=== PATIENT | female | born 1965 | race Caucasian/White ===

== ENCOUNTER 2018-10-08 01:24 | Inpatient (IN) | payer SELFPAY ==
[~2018-10-08] VITALS: Ht 165.1 cm; Wt 73.5 kg
[2018-10-08 02:38] LABS: BASO # 0.1 10^3/uL (0.0-0.2); BASO % 0.8 % (0.0-1.0); EOS % 0.3 % (0.0-3.0); HEMATOCRIT 37.5 % (36.0-47.0); HEMOGLOBIN 12.6 g/dl (12.0-15.5); LYMPH # 1.7 10^3/uL (1.5-4.5); LYMPH % 21.6 % (24.0-44.0); MEAN CORPUSCULAR HEMOGLOBIN 29.4 pg (27.0-33.0); MEAN CORPUSCULAR HGB CONC 33.6 g/dl (32.0-36.5); MEAN CORPUSCULAR VOLUME 87.4 fl (80.0-96.0); MONO # 0.8 10^3/uL (0.0-0.8); MONO % 9.9 % (0.0-5.0); NEUTROPHILS # 5.2 10^3/uL (1.8-7.7); NEUTROPHILS % 67.1 % (36.0-66.0); PLATELET COUNT, AUTOMATED 255 10^3/uL (150-450); RED BLOOD COUNT 4.29 10^6/uL (4.00-5.40); WHITE BLOOD COUNT 7.8 10^3/uL (4.0-10.0)
[2018-10-08 02:59] LABS: ALBUMIN 3.6 GM/DL (3.2-5.2); ALT/SGPT 23 U/L (12-78); BILIRUBIN,DIRECT 0.2 MG/DL (0.0-0.2); BILIRUBIN,TOTAL 0.7 MG/DL (0.2-1.0); BLOOD UREA NITROGEN 14 MG/DL (7-18); CALCIUM LEVEL 8.1 MG/DL (8.5-10.1); CARBON DIOXIDE LEVEL 25 MEQ/L (21-32); CHLORIDE LEVEL 111 MEQ/L (98-107); CREATININE FOR GFR 0.74 MG/DL (0.55-1.30); GLOMERULAR FILTRATION RATE > 60.0 (>51); GLUCOSE, FASTING 104 MG/DL (70-100); POTASSIUM SERUM 3.7 MEQ/L (3.5-5.1); SODIUM LEVEL 142 MEQ/L (136-145); TOTAL PROTEIN 6.1 GM/DL (6.4-8.2)
[2018-10-08] MEDS ORDERED: KETOROLAC 60 MG/2 ML VIAL (J1885) IM ONE (03:45)
--- NOTE | 2018-10-08 05:39 | HPEPDOC ---
[facility] Medical History & Physical Date of Admission Oct 08, 2018 History and Physical CHIEF COMPLAINT: transfer from [facility] for abnormal labs? and psychosis/altered mental status HISTORY OF PRESENT ILLNESS: Yeny Coleman is a 52 YO F with unknown past medical history who was found naked and nonverbal walking along I. She was saying thin gs that included "Anthony is " and leads found her to be fearful, wide-eyed, and paranoid. She was also agitated and restless. She demonstrated disorientation and confusion as well as difficulty concentrating. He is reportedly from [facility] and it is unknown how she found her way to [place]. She denies any recent drug use. The ED at [facility] was able to find the name of a hospital where she had been previously treated in [place] and found that she has Graves' disease and unknown psychiatric history for which she takes trazodone daily. She had an unremarkable CT head, but slightly elevated ammonia level at 41. Her CPK level was also found to be 638. [facility] gave the patient 1 mg of Ativan and Narcan, but it is unclear whether they gave her lactulose.. She was brought to [facility] for further medical management and psychiatry intervention. On exam, she is not answering any questions appropriately. PAST MEDICAL HISTORY: 1. Unknown psychiatric disorder for which she was hospitalized at [facility] and [facility] 2. Graves disease? PAST SURGICAL HISTORY: Unknown SOCIAL HISTORY: The patient lives in [place]. He has known about her family or social habits, as she is not answering any questions at this time. FAMILY HISTORY: Unknown ALLERGIES: Please see below. REVIEW OF SYSTEMS: Unable to obtain HOME MEDICATIONS: Please see below. PHYSICAL EXAMINATION: VITAL SIGNS: See below GENERAL APPEARANCE: Laying in bed sleeping, difficult to awaken, laughing inappropriately HEENT: Fair dentition, moist mucous membranes CARDIOVASCULAR: RRR, no rubs or gallops LUNGS: Clear to auscultation bilaterally ABDOMEN: Soft, nontender to palpation with present bowel sounds MUSCULOSKELETAL: Moves all extremities well EXTREMITIES: No clubbing, cyanosis or edema NEUROLOGICAL: Unable to assess PSYCHIATRIC: Unable to assess LABORATORY DATA: See below. IMAGING: None performed MICROBIOLOGY: Please see below. ASSESSMENT: This is a 52-year-old woman with unknown psychiatric history found wandering along the highway naked and is found to be very paranoid and fearful. She was found to have an elevated ammonia level and was transferred to [facility] for medical management at this time. PLAN: #Elevated ammonia level: It is unknown whether this patient has liver disease. Physical exam does not demonstrate enlarged liver. Her confusion may be due to hepatic encephalopathy or from her psychiatric disease -The patient may have received lactulose at outside hospital, but records are not clear about this. Her ammonia level at the outside hospital was 41 and was found to be 34 here. -Will continue to monitor -As the patient does appear dry on exam. She would benefit from 1 L fluid bolus of normal saline at this time #Encephalopathy versus psychosis: -The patient is not agitated or combative on exam, so will not order one to one sitter at this time as it does not appear to be indicated -The patient was reportedly on 50 mg of trazodone daily at bedtime, but we are unable to confirm this -Will need psychiatry referral in the morning DVT prophylaxis: Miriam Unable to obtain patient's CODE STATUS at this time Vital Signs Vital Signs Date Time Temp Pulse Resp B/P (MAP) Pulse Ox O2 Delivery O2 Flow Rate FiO2 10/08/18 04:00 93 16 97 Room Air 10/08/18 02:45 97.8 114/57 (76) Laboratory Data Labs 24H Laboratory Tests 2 10/08/18 02:21: Anion Gap 6L, Glomerular Filtration Rate > 60.0, Calcium Level 8.1L, Aspartate Amino Transf (AST/SGOT) 26, Alanine Aminotransferase (ALT/SGPT) 23, Alkaline Phosphatase 79, Total Bilirubin 0.7, Direct Bilirubin 0.2, Total Protein 6.1L, Albumin 3.6, Albumin/Globulin Ratio 1.44 10/08/18 02:22: Immature Granulocyte % (Auto) 0.3, White Blood Count 7.8, Red Blood Count 4.29, Hemoglobin 12.6, Hematocrit 37.5, Mean Corpuscular Volume 87.4, Mean Corpuscular Hemoglobin 29.4, Mean Corpuscular Hemoglobin Concent 33.6, Red Cell Distribution Width 12.9, Platelet Count 255, Neutrophils (%) (Auto) 67.1H, Lymphocytes (%) (Auto) 21.6L, Monocytes (%) (Auto) 9.9H, Eosinophils (%) (Auto) 0.3, Basophils (%) (Auto) 0.8, Neutrophils # (Auto) 5.2, Lymphocytes # (Auto) 1.7, Monocytes # (Auto) 0.8, Eosinophils # (Auto) 0.0, Basophils # (Auto) 0.1, Nucleated Red Blood Cells % (auto) 0.0, Lactic Acid Level 1.0, Ammonia 34H CBC/BMP Laboratory Tests 10/08/18 02:21 10/08/18 02:22 Red Blood Count 4.29, Mean Corpuscular Volume 87.4, Mean Corpuscular Hemoglobin 29.4, Mean Corpuscular Hemoglobin Concent 33.6, Red Cell Distribution Width 12.9, Neutrophils (%) (Auto) 67.1 H, Lymphocytes (%) (Auto) 21.6 L, Monocytes (%) (Auto) 9.9 H, Eosinophils (%) (Auto) 0.3, Basophils (%) (Auto) 0.8, Neutrophils # (Auto) 5.2, Lymphocytes # (Auto) 1.7, Monocytes # (Auto) 0.8, Eosinophils # (Auto) 0.0, Basophils # (Auto) 0.1 Home Medications Scheduled PRN Trazodone HCl (Trazodone HCl) 150 Mg Tablet, 150 MG PO QHS PRN for SLEEP LAST FILLED 09/23/18 Allergies Coded Allergies: Sulfa (Sulfonamide Antibiotics) (Verified Allergy, Unknown, 10/08/18) latex (Verified Allergy, Unknown, 10/08/18) GME ATTESTATION GME ATTESTATION My faculty preceptor for this patient encounter was physically present during the encounter and was fully available. All aspects of the patient interview, examination, medical decision making process, and medical care plan development were reviewed and approved by the faculty preceptor. The faculty preceptor is aware and concurs with the plan as stated in the body of this note and will attest to such by his/her cosignature. ATTENDING NOTE I have reviewed the residents note and have personally examined the patient. I agree with the Residents physical examination and assessment and plan. LEENA GOMEZ MD Oct 08, 2018 05:39 AINSLEY SANDHU MD Oct 08, 2018 19:37
[2018-10-08] MEDS ORDERED: NS 1,000 ML IV ONE (05:45)
[2018-10-08] MEDS ORDERED: LORazepam 2 MG/ML VIAL (J2060) IV STA (06:38)
[2018-10-08] MEDS ORDERED: LORazepam 2 MG/ML VIAL (J2060) IV PRN (06:45)
[2018-10-08] MEDS ORDERED: HALOPERIDOL 5 MG/ML VIAL (J1630) IV PRN (06:45)
[2018-10-08] MEDS: ENOXAPARIN 40 MG/0.4 ML SYRINGE (J1650) SC SCH (09:00)
[2018-10-08] MEDS: HALOPERIDOL 0.5 MG TAB PO SCH ×2 (09:00→21:00)
[2018-10-08] MEDS ORDERED: TRAZ150T90 PO (09:49)
[2018-10-08 13:58] LABS: FREE THYROXINE INDEX 3.9 % (1.3-4.8); T UPTAKE 38 % (30-39); THYROXINE (T4) 10.3 UG/DL (4.5-12.0)
--- NOTE | 2018-10-08 14:10 | MHCRPDOC ---
[facility] Consultation Consultation DATE OF CONSULTATION: 10/08/18 CONSULTATION REQUESTED BY: REASON FOR CONSULTATION: Psychosis RELEVANT HISTORY: Per medical admit note: "Pt is a 52 YO F with unknown past medical history and past psychiatric history who was found naked and nonverbal walking along [address]. She was saying things that included "Anthony is " and leads found her to be fearful, wide-eyed, and paranoid. She was also agitated and restless. She demonstrated disorientation and confusion as well as difficulty concentrating. She is reportedly from [facility] and it is unknown how she found her way to [place]. She denies any recent drug use. The ED at [facility] was able to find the name of a hospital where she had been previously treated in [place] and found that she has Graves' disease and unknown psychiatric history for which she takes trazodone daily. She had an unremarkable CT head, but slightly elevated ammonia level at 41. Her CPK level was also found to be 638. [facility] gave the patient 1 mg of Ativan and Narcan, but it is unclear whether they gave her lactulose. She was brought to [facility] for further medical management and psychiatry intervention. On exam, she is not answering any questions appropriately." Pt seen with sitter present. Sitter in place as pt has attempted to elope multiple times since admitted. Pt pacing room when seen and states she'd like to go. Asked pt to sit while we talked and did for a second then stood up with slightly defensive body language (arms across chest) and shortly after resumed pacing. States she's here due to being naked, "walking" on the side of the road due to unknown reason and denies she thinks there's anything bizarre about that behavior. States she was looking for her car but when asked if she knew where it was unable to answer. Asked her to tell me about herself and didn't give any answers. Asked about her psychiatric history and states she's been diagnosed with anxiety before and has taken trazodone. Asked further about any other diagnosis and states "schizophrenia but that was miss diagnosis" but won't give other diagnosis. Attempted to complete MMSE and pt only oriented to self and that she in a hospital, unable to answer day, month, or year. 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 Distended abdomen most likely due to li jose guadalupe disease due to chronic alcohol use. PAST PSYCHIATRIC HISTORY: states she's been diagnosed with anxiety and given trazodone. States missed diagnosis with schizophrenia. PAST MEDICAL HISTORY: Graves Dz per records from [facility]. Hospitalized at [facility] and [facility] previously. Ammonia level 41 on admission and questionable if suffering hepatic encephalopathy as associated with confusion and psychosis, VH FAMILY HISTORY: noncontributory PERSONAL AND SOCIAL HISTORY: [place] to [place] and unknown how in [facility] area rest of social history unknown SUBSTANCE ABUSE HISTORY: based on body habitus and elevated liver enzymes/ammonia most likely abused alcohol long period of time LEGAL HISTORY: unknown MENTAL STATUS EXAMINATION: Patient is a 52 year old female, who is dressed in hospital gown pacing room, uneaten tray of food. Sitter present to prevent pt from eloping Speech is limited to few word responses Language skills are limited Thought processes including: concrete with blocking Thought content: denies si/hi, focused on leaving to find her car Abstract reasoning, and computation: poor Description of associations: illogical or no response Description of abnormal or psychotic thoughts: appears paranoid and very confused Judgment: poor Insight: poor Orientation to self only Recent and remote memory: poor recent and remote Attention span and concentration: very limited Language: limited Fund of knowledge: limited by confusion Mood: anxious Affect: anxious, pacing, defensive DIAGNOSIS: 1. Delirium secondary GMD (hypatic encephalogaly vs. elevated thyroid profile) 2. R/O psychosis unspecified PLAN: 1. ordered thyroid panel for hx Grave's disease as thyroid storm associated with psychosis delirium. Ordered toxicology to rule out substance use. 2. Recommend liver be further worked up for chronic liver disease vs failure as ammonia level increases associated with confusion more likely seen in liver failure. 3. zyprexa zydis 5mg q6hr prn anxiety/Agitation. NO ATIVAN will make pt more delirious/agitated/confused. Risperdal 0.5mg bid. (zyprexa and risperdal metabolized in liver but risks out way benefits as pt attempting to elope and has very poor insight and judgment.) 4. Continue sitter. Vital Signs Vital Signs Date Time Temp Pulse Resp B/P (MAP) Pulse Ox O2 Delivery O2 Flow Rate FiO2 10/08/18 07:15 98.7 95 18 154/74 (100) 95 Room Air Laboratory Data 24H Labs Laboratory Tests 2 10/08/18 02:21: Anion Gap 6L, Glomerular Filtration Rate > 60.0, Calcium Level 8.1L, Aspartate Amino Transf (AST/SGOT) 26, Alanine Aminotransferase (ALT/SGPT) 23, Alkaline Phosphatase 79, Total Bilirubin 0.7, Direct Bilirubin 0.2, Total Protein 6.1L, Albumin 3.6, Albumin/Globulin Ratio 1.44 10/08/18 02:22: Immature Granulocyte % (Auto) 0.3, White Blood Count 7.8, Red Blood Count 4.29, Hemoglobin 12.6, Hematocrit 37.5, Mean Corpuscular Volume 87.4, Mean Corpuscular Hemoglobin 29.4, Mean Corpuscular Hemoglobin Concent 33.6, Red Cell Distribution Width 12.9, Platelet Count 255, Neutrophils (%) (Auto) 67.1H, Lymphocytes (%) (Auto) 21.6L, Monocytes (%) (Auto) 9.9H, Eosinophils (%) (Auto) 0.3, Basophils (%) (Auto) 0.8, Neutrophils # (Auto) 5.2, Lymphocytes # (Auto) 1.7, Monocytes # (Auto) 0.8, Eosinophils # (Auto) 0.0, Basophils # (Auto) 0.1, Nucleated Red Blood Cells % (auto) 0.0, Lactic Acid Level 1.0, Ammonia 34H Home Medications Current Medications Current Medications Enoxaparin Sodium (Lovenox) 40 mg DAILY SC ; Start 10/08/18 at 09:00 Haloperidol (Haldol) 0.5 mg BID PO ; Start 10/08/18 at 09:00 Haloperidol (Haldol) 2 mg Q6HP PRN IV AGITATION; Start 10/08/18 at 06:45 Home Med (Med Rec Complete!) ASDIRECTED XX ; Start 10/08/18 at 03:45; Stop 10/08/18 at 03:45; Status DC Home Med (Med Rec Complete!) ASDIRECTED XX ; Start 10/08/18 at 10:00; Stop 10/08/18 at 10:20; Status DC Lorazepam (Ativan) 2 mg Q6HP PRN IV AGITATION; Start 10/08/18 at 06:45 Lorazepam (Ativan) 2 mg STAT STAT IV Last administered on 10/08/18at 06:56; Start 10/08/18 at 06:38; Stop 10/08/18 at 06:42; Status DC Scheduled PRN Trazodone HCl (Trazodone HCl) 150 Mg Tablet, 150 MG PO QHS PRN for SLEEP, (Reported) LAST FILLED 09/23/18 Allergies Coded Allergies: Sulfa (Sulfonamide Antibiotics) (Verified Allergy, Unknown, 10/08/18) latex (Verified Allergy, Unknown, 10/08/18) JERED RAVI DO Oct 08, 2018 1:18 pm
[2018-10-08 14:36] VITALS: BP 162/76
--- NOTE | 2018-10-08 17:09 | IPNPDOC ---
Date Seen The patient was seen on 10/08/18. Progress Note SUBJECTIVE: Patient patient tells me she has no medical problems she requires no testing and that she would like to be leaving the hospital shortly going back to where she came from she's not able to elaborate any further about where she came from her how she will get their and on further questioning she instructs me to "leave it for now"'s OBJECTIVE PHYSICAL EXAMINATION: VITAL SIGNS: Please see below. GENERAL: Middle-age female Admitting independently around her room she has a flat affect with psychomotor retardation HEENT: Cranial nerves grossly intact CARDIOVASCULAR: S1-S2 regular. RESPIRATORY: Clear to auscultation bilaterally. ABDOMINAL: Obese bowel sounds present abdomen soft and nontender EXTREMITIES: No clubbing cyanosis or edema no evidence of stigmata of chronic l iver disease NEUROLOGICAL: No gross focal deficits LABORATORY DATA, IMAGING STUDIES, MICROBIOLOGY: Please see below. DVT prophylaxis ordered?: Lovenox ASSESSMENT AND PLAN: This is a 52-year-old female with changes in mentation. PROBLEMS: 1. Change in mentation: My suspicion is for underlying psychiatric condition and does not appear to be in delirium secondary to any acute medical illness. [place] [address] Patient reportedly has a history of previous psychiatric hospitalizations although we have limited records in our system. She did have an elevated ammonia level however without the proper clinical presentation of hepatic encephalopathy my suspicion for this is quite low. She has no stigmata of chronic liver disease she is up ambulating awake alert does not appear to be encephalopathic whatsoever I see no value in this isolated lab. I spoken to Dr. Funk of psychiatry will see the patient consultation. In the interim I'll ensure no other medical etiology could responsible for her presentation. She does not express any suicidal ideation to me at this time. Toxicology and CT had both negative at [facility]. 2. Graves' disease: Thyroid panel is unremarkable. DISPOSITION: Pending psych evaluation. VS, I&O, 24H, Fishbone Vital Signs/I&O Vital Signs Date Time Temp Pulse Resp B/P (MAP) Pulse Ox O2 Delivery O2 Flow Rate FiO2 10/08/18 14:36 97.4 95 14 162/76 (104) 94 10/08/18 07:15 Room Air Laboratory Data 24H LABS Laboratory Tests 2 10/08/18 02:21: Anion Gap 6L, Glomerular Filtration Rate > 60.0, Calcium Level 8.1L, Aspartate Amino Transf (AST/SGOT) 26, Alanine Aminotransferase (ALT/SGPT) 23, Alkaline Ph osphatase 79, Total Bilirubin 0.7, Direct Bilirubin 0.2, Total Protein 6.1L, Albumin 3.6, Albumin/Globulin Ratio 1.44, Thyroid Stimulating Hormone (TSH) 1.400, Free Thyroxine Index 3.9, Thyroxine (T4) 10.3, Triiodothyronine (T3) Uptake 38 10/08/18 02:22: Immature Granulocyte % (Auto) 0.3, White Blood Count 7.8, Red Blood Count 4.29, Hemoglobin 12.6, Hematocrit 37.5, Mean Corpuscular Volume 87.4, Mean Corpuscular Hemoglobin 29.4, Mean Corpuscular Hemoglobin Concent 33.6, Red Cell Distribution Width 12.9, Platelet Count 255, Neutrophils (%) (Auto) 67.1H, Lymphocytes (%) (Auto) 21.6L, Monocytes (%) (Auto) 9.9H, Eosinophils (%) (Auto) 0.3, Basophils (%) (Auto) 0.8, Neutrophils # (Auto) 5.2, Lymphocytes # (Auto) 1.7, Monocytes # (Auto) 0.8, Eosinophils # (Auto) 0.0, Basophils # (Auto) 0.1, Nucleated Red Blood Cells % (auto) 0.0, Lactic Acid Level 1.0, Ammonia 34H CBC/BMP Laboratory Tests 10/08/18 02:21 10/08/18 02:22 Red Blood Count 4.29, Mean Corpuscular Volume 87.4, Mean Corpuscular Hemoglobin 29.4, Mean Corpuscular Hemoglobin Concent 33.6, Red Cell Distribution Width 12.9, Neutrophils (%) (Auto) 67.1 H, Lymphocytes (%) (Auto) 21.6 L, Monocytes (%) (Auto) 9.9 H, Eosinophils (%) (Auto) 0.3, Basophils (%) (Auto) 0.8, Neutrophils # (Auto) 5.2, Lymphocytes # (Auto) 1.7, Monocytes # (Auto) 0.8, Eosinophils # (Auto) 0.0, Basophils # (Auto) 0.1 LYDIA PATTERSON MD Oct 08, 2018 17:09
[2018-10-08] MEDS: risperiDONE 1 MG TAB PO SCH (21:00)
[2018-10-08 22:00] VITALS: BP 157/81
[2018-10-09 06:00] VITALS: BP 136/79
[2018-10-09 06:23] LABS: BASO # 0.1 10^3/uL (0.0-0.2); BASO % 1.1 % (0.0-1.0); EOS % 0.6 % (0.0-3.0); HEMOGLOBIN 12.9 g/dl (12.0-15.5); LYMPH # 1.8 10^3/uL (1.5-4.5); LYMPH % 34.8 % (24.0-44.0); MEAN CORPUSCULAR HEMOGLOBIN 29.9 pg (27.0-33.0); MEAN CORPUSCULAR HGB CONC 33.9 g/dl (32.0-36.5); MONO # 0.5 10^3/uL (0.0-0.8); MONO % 9.1 % (0.0-5.0); NEUTROPHILS # 2.9 10^3/uL (1.8-7.7); NEUTROPHILS % 54.2 % (36.0-66.0); PLATELET COUNT, AUTOMATED 241 10^3/uL (150-450); RED BLOOD COUNT 4.32 10^6/uL (4.00-5.40); WHITE BLOOD COUNT 5.3 10^3/uL (4.0-10.0)
[2018-10-09 06:39] LABS: INR 1.04; PROTHROMBIN TIME 13.7 SECONDS (12.1-14.4)
[2018-10-09 06:42] LABS: ALBUMIN 3.9 GM/DL (3.2-5.2); ALT/SGPT 31 U/L (12-78); BILIRUBIN,TOTAL 0.9 MG/DL (0.2-1.0); BLOOD UREA NITROGEN 11 MG/DL (7-18); CALCIUM LEVEL 8.7 MG/DL (8.5-10.1); CARBON DIOXIDE LEVEL 24 MEQ/L (21-32); CHLORIDE LEVEL 108 MEQ/L (98-107); CREATININE FOR GFR 0.58 MG/DL (0.55-1.30); GLOMERULAR FILTRATION RATE > 60.0 (>51); GLUCOSE, FASTING 116 MG/DL (70-100); POTASSIUM SERUM 3.5 MEQ/L (3.5-5.1); SODIUM LEVEL 141 MEQ/L (136-145); TOTAL PROTEIN 6.5 GM/DL (6.4-8.2)
[2018-10-09] MEDS: HALOPERIDOL 0.5 MG TAB PO SCH ×2 (09:00→21:35)
[2018-10-09] MEDS: ENOXAPARIN 40 MG/0.4 ML SYRINGE (J1650) SC SCH (09:00)
[2018-10-09] MEDS: risperiDONE 1 MG TAB PO SCH (09:35)
[2018-10-09 14:00] VITALS: BP 141/99
--- NOTE | 2018-10-09 14:08 | IPNPDOC ---
Date Seen The patient was seen on 10/09/18. Progress Note SUBJECTIVE: patient is avoiding today, she converses with me last she admits to previous psychiatric hospitalizations she cannot tell me where she lives now we will contact information for anyone who can provide collateral information for her she cannot tell me and address for which she could be discharged for disposition to. When asked about suicidal ideation she denies and shakes her head no I did ask her if she was feeling depressed or down her thoughts of hurting herself she was tearful but shakes her head no. I asked if she had been told she had any psychiatric illness in the past she was presented to me that she's been told she has schizophrenia but doesn't elaborate any further. She tells me that she takes trazodone at home but cannot tell me the name of any doctors was prescribed to her or who she has been seen by previously. She tells me she is denying refusing all medications as she does not believe she needs the OBJECTIVE PHYSICAL EXAMINATION: VITAL SIGNS: Please see below. GENERAL: Middle-age female she is tearful sitting curled up on a chair in no acute distress she is less conversant today She wishes to forego physical exam today LABORATORY DATA, IMAGING STUDIES, MICROBIOLOGY: Please see below. DVT prophylaxis ordered?: Lovenox ASSESSMENT AND PLAN: This is a 52-year-old female with changes in mentation. PROBLEMS: 1. Change in mentation: My suspicion is for underlying psychiatric condition and does not appear to be in delirium secondary to any acute medical illness. A repeat ammonium level is negative. Patient reportedly has a history of previous psychiatric hospitalizations although we have limited records in our system. She did have an elevated ammonia level however without the proper clinical presentation of hepatic encephalopathy my suspicion for this is quite low. She has no stigmata of chronic liver disease she is up ambulating awake alert does not appear to be encephalopathic whatsoever I see no value in this isolated lab, her INR is also normal liver ultrasound is currently pending. I spoken to Dr. Funk of psychiatry will see the patient consultation. In the interim I'll ensure no other medical etiology could be responsible for her presentation. She does not express any suicidal ideation to me at this time. Toxicology and CT had both negative at [facility]. Should her workup return completely negative tomorrow I suspect that acute medical delirium has been more than sufficiently excluded 2. Graves' disease: Thyroid panel is unremarkable. DISPOSITION: Pending revisitation, PFS consult placed VS, I&O, 24H, Fishbone Vital Signs/I&O Vital Signs Date Time Temp Pulse Resp B/P (MAP) Pulse Ox O2 Delivery O2 Flow Rate FiO2 10/09/18 06:00 97.5 92 17 136/79 (98) 97 10/08/18 07:15 Room Air I&O- Last 24 Hours up to 6 AM 10/09/18 06:00 Intake Total 1000 ml Balance 1000 ml Laboratory Data 24H LABS Laboratory Tests 2 10/09/18 06:05: Immature Granulocyte % (Auto) 0.2, White Blood Count 5.3, Red Blood Count 4.32, Hemoglobin 12.9, Hematocrit 38.0, Mean Corpuscular Volume 88.0, Mean Corpuscular Hemoglobin 29.9, Mean Corpuscular Hemoglobin Concent 33.9, Red Cell Distribution Width 12.5, Platelet Count 241, Neutrophils (%) (Auto) 54.2, Lymphocytes (%) (Auto) 34.8, Monocytes (%) (Auto) 9.1H, Eosinophils (%) (Auto) 0.6, Basophils (%) (Auto) 1.1H, Neutrophils # (Auto) 2.9, Lymphocytes # (Auto) 1.8, Monocytes # (Auto) 0.5, Eosinophils # (Auto) 0.0, Basophils # (Auto) 0.1, Nucleated Red Blood Cells % (auto) 0.0, Prothrombin Time 13.7, Prothromb Time International Ratio 1.04, Anion Gap 9, Glomerular Filtration Rate > 60.0, Blood Urea Nitrogen 11, Creatinine 0.58, Sodium Level 141, Potassium Level 3.5, Chloride Level 108H, Carbon Dioxide Level 24, Calcium Level 8.7, Aspartate Amino Transf (AST/SGOT) 33, Alanine Aminotransferase (ALT/SGPT) 31, Alkaline Phosphatase 81, Total Bilirubin 0.9, Total Protein 6.5, Albumin 3.9, Ammonia 28, Albumin/Globulin Ratio 1.50 CBC/BMP Laboratory Tests 10/09/18 06:05 Red Blood Count 4.32, Mean Corpuscular Volume 88.0, Mean Corpuscular Hemoglobin 29.9, Mean Corpuscular Hemoglobin Concent 33.9, Red Cell Distribution Width 12.5, Neutrophils (%) (Auto) 54.2, Lymphocytes (%) (Auto) 34.8, Monocytes (%) (Auto) 9.1 H, Eosinophils (%) (Auto) 0.6, Basophils (%) (Auto) 1.1 H, Neutrophils # (Auto) 2.9, Lymphocytes # (Auto) 1.8, Monocytes # (Auto) 0.5, Eosinophils # (Auto) 0.0, Basophils # (Auto) 0.1, Calcium Level 8.7, Aspartate Amino Transf (AST/SGOT) 33, Alanine Aminotransferase (ALT/SGPT) 31, Alkaline Phosphatase 81, Total Bilirubin 0.9, Total Protein 6.5, Albumin 3.9 LYDIA PATTERSON MD Oct 09, 2018 14:08
--- NOTE | 2018-10-09 15:04 | MHIPNPDOC ---
[facility] Progress Note Progress Note DATE OF SERVICE: 10/09/18 HISTORY: Per medical admit note: "Pt is a 52 YO F with unknown past medical history and past psychiatric history who was found naked and [place]verbal [place] [address]. She was saying things that included "Anthony is " and leads found her to be fearful, wide-eyed, and paranoid. She was also agitated and restless. She demonstrated disorientation and confusion as well as difficulty concentrating. She is reportedly from [facility] and it is unknown how she found her way to [place]. She denies any recent drug use. The ED at [facility] was able to find the name of a hospital where she had been previously treated in [place] and found that she has Graves' disease and unknown psychiatric history for which she takes trazodone daily. She had an unremarkable CT head, but slightly elevated ammonia level at 41. Her CPK level was also found to be 638. [facility] gave the patient 1 mg of Ativan and Narcan, but it is unclear whether they gave her lactulose. She was brought to [facility] for further medical management and psychiatry intervention. On exam, she is not answering any questions appropriately." Pt seen with sitter present. Sitter in place as pt has attempted to elope mul tiple times since admitted. Pt pacing room when seen and states she'd like to go. Asked pt to sit while we talked and did for a second then stood up with slightly defensive body language (arms across chest) and shortly after resumed pacing. States she's here due to being naked, "walking" on the side of the road due to unknown reason and denies she thinks there's anything bizarre about that behavior. States she was looking for her car but when asked if she knew where it was unable to answer. Asked her to tell me about herself and didn't give any answers. Asked about her psychiatric history and states she's been diagnosed with anxiety before and has taken trazodone. Asked further about any other diagnosis and states "schizophrenia but that was miss diagnosis" but won't give other diagnosis. Attempted to complete MMSE and pt only oriented to self and that she in a hospital, unable to answer day, month, or year. 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 Distended abdomen most likely due to liver disease due to chronic alcohol use. VITAL SIGNS: See below. NEW TEST RESULTS: thyroid panel wnl, pending utox, ammonia 28. CURRENT MEDICATIONS: See below. MENTAL STATUS EXAMINATION: Patient is a 52 year old female, who is dressed in hospital gown pacing room, uneaten tray of food. Sitter present to prevent pt from eloping Speech is limited to few word responses Language skills are limited Thought processes including: concrete with blocking Thought content: denies si/hi, focused on leaving to find her car Abstract reasoning, and computation: poor Description of associations: illogical or no response Description of abnormal or psychotic thoughts: appears paranoid and very confused Judgment: poor Insight: poor Orientation to self only Recent and remote memory: poor recent and remote Attention span and concentration: very limited Language: limited Fund of knowledge: limited by confusion Mood: anxious Affect: anxious, pacing, defensive DIAGNOSES: psychosis unspecified ASSESSMENT:Pt seen with sitter present. Pt at first unwilling to answer questions but sat with pt and continued to ask simple questions. Able to comply with and answer MMSE of year, read October 09 on board, named straw and apple juice when asked. States some one told her to take all her clothes off [place] [address] but will not name who, possibly AH. Pt states she wants to go back to where to came from but won't or can't say where specifically that is or was. Pt very paranoid and appears to have prominent thought blocking. Denies SI/HI. Per nurse took risperdal when given and slept during the night. Pt ate breakfast but sitting with uneaten lunch in front on her and encourage to eat if she feels she can. Sitter in place as pt has attempted to elope multiple times since admitted. Pt no longer pacing, seating peacefully and did walk around her unit in am with staff with not attempts to elope. Pt appears to most likely be a chronic schizophrenic that lives a nomadic life b/c she prefers that as most that live this lifestyle prefer to be homeless and will intentionally leave homes due to worsening voices/paranoia and making individual uncomfortable. The are rarely if ever compliant on medications or with follow- up. Most not likely to harm self or others. Will continue to follow and see if can get her to further answer some questions about her origins and if we can help her return to area of living. MANAGEMENT PLAN: 1. zyprexa zydis 5mg q6hr prn anxiety/Agitation. NO ATIVAN will make pt more delirious/agitated/confused. Increase Risperdal 2mg bid. (zyprexa and risperdal metabolized in liver but risks out way benefits as pt attempting to elope and has very poor insight and judgment.) 2. Continue sitter. TIME SPENT: 30 minutes. Vital Signs Vital Signs Date Time Temp Pulse Resp B/P (MAP) Pulse Ox O2 Delivery O2 Flow Rate FiO2 10/09/18 06:00 97.5 92 17 136/79 (98) 97 10/08/18 07:15 Room Air Laboratory Data 24H Labs Laboratory Tests 2 10/09/18 06:05: Immature Granulocyte % (Auto) 0.2, White Blood Count 5.3, Red Blood Count 4.32, Hemoglobin 12.9, Hematocrit 38.0, Mean Corpuscular Volume 88.0, Mean Corpuscular Hemoglobin 29.9, Mean Corpuscular Hemoglobin Concent 33.9, Red Cell Distribution Width 12.5, Platelet Count 241, Neutrophils (%) (Auto) 54.2, Lymphocytes (%) (Auto) 34.8, Monocytes (%) (Auto) 9.1H, Eosinophils (%) (Auto) 0.6, Basophils (%) (Auto) 1.1H, Neutrophils # (Auto) 2.9, Lymphocytes # (Auto) 1.8, Monocytes # (Auto) 0.5, Eosinophils # (Auto) 0.0, Basophils # (Auto) 0.1, Nucleated Red Blood Cells % (auto) 0.0, Prothrombin Time 13.7, Prothromb Time International Ratio 1.04, Anion Gap 9, Glomerular Filtration Rate > 60.0, Blood Urea Nitrogen 11, Creatinine 0.58, Sodium Level 141, Potassium Level 3.5, Chloride Level 108H, Carbon Dioxide Level 24, Calcium Level 8.7, Aspartate Amino Transf (AST/SGOT) 33, Alanine Aminotransferase (ALT/SGPT) 31, Alkaline Phosphatase 81, Total Bilirubin 0.9, Total Protein 6.5, Albumin 3.9, Ammonia 28, Albumin/Globulin Ratio 1.50 CBC/BMP Laboratory Tests 10/09/18 06:05 Red Blood Count 4.32, Mean Corpuscular Volume 88.0, Mean Corpuscular Hemoglobin 29.9, Mean Corpuscular Hemoglobin Concent 33.9, Red Cell Distribution Width 12.5, Neutrophils (%) (Auto) 54.2, Lymphocytes (%) (Auto) 34.8, Monocytes (%) (Auto) 9.1 H, Eosinophils (%) (Auto) 0.6, Basophils (%) (Auto) 1.1 H, Ne utrophils # (Auto) 2.9, Lymphocytes # (Auto) 1.8, Monocytes # (Auto) 0.5, Eosinophils # (Auto) 0.0, Basophils # (Auto) 0.1, Calcium Level 8.7, Aspartate Amino Transf (AST/SGOT) 33, Alanine Aminotransferase (ALT/SGPT) 31, Alkaline Phosphatase 81, Total Bilirubin 0.9, Total Protein 6.5, Albumin 3.9 Current Medications Current Medications Enoxaparin Sodium (Lovenox) 40 mg DAILY SC ; Start 10/08/18 at 09:00 Haloperidol (Haldol) 0.5 mg BID PO ; Start 10/08/18 at 09:00 Haloperidol (Haldol) 2 mg Q6HP PRN IV AGITATION; Start 10/08/18 at 06:45 Home Med (Med Rec Complete!) ASDIRECTED XX ; Start 10/08/18 at 03:45; Stop 10/08/18 at 03:45; Status DC Home Med (Med Rec Complete!) ASDIRECTED XX ; Start 10/08/18 at 10:00; Stop 10/08/18 at 10:20; Status DC Lorazepam (Ativan) 2 mg Q6HP PRN IV AGITATION; Start 10/08/18 at 06:45; Status Cancel Lorazepam (Ativan) 2 mg STAT STAT IV Last administered on 10/08/18at 06:56; Start 10/08/18 at 06:38; Stop 10/08/18 at 06:42; Status DC Olanzapine (ZyPREXA ZYDIS) 5 mg Q4HP PRN PO ANXIETY/AGITATION; Start 06/16 at 14:15 Risperidone (RisperDAL) 1 mg BID PO Last administered on 10/09/18at 09:35; Start 10/08/18 at 21:00 Allergies Coded Allergies: Sulfa (Sulfonamide Antibiotics) (Verified Allergy, Unknown, 10/08/18) latex (Verified Allergy, Unknown, 10/08/18) JERED RAVI DO Oct 09, 2018 1:35 pm
[2018-10-09] MEDS: OLANZapine ORAL DISINTEGRATING TAB 5MG PO PRN (18:46)
[2018-10-09] MEDS: risperiDONE 2 MG TAB PO SCH (21:35)
[2018-10-09 22:00] VITALS: BP 173/72
[2018-10-10 06:00] VITALS: BP 138/76
--- NOTE | 2018-10-10 07:38 | REP ---
Right upper quadrant sonography: History: Abnormal liver enzymes. Acute encephalopathy. Elevated ammonia. Findings: Scanning through the right upper quadrant of the abdomen demonstrates normal sized thin-walled gallbladder without evidence of stone or polyp. Common bile duct is normal measuring 0.4 cm in greatest diameter. There is evidence of fatty infiltration of the liver. No focal liver lesion is seen. Limited views of the pancreas show no abnormality. Pancreas is largely obscured by abdominal gas however. Exam quality was also inhibited by patient's inability to fully cooperate. There is no evidence of ascites. There is cortical atrophy of the right kidney. Right kidney measures 11.5 x 4.7 x 5.4 cm. Impression: Evidence of fatty infiltration of the liver. Some cortical atrophy right kidney. No other abnormality. Electronically Signed by Jose Guadalupe Castro MD 10/09/2018 08:30 A
[2018-10-10] MEDS: HALOPERIDOL 0.5 MG TAB PO SCH ×2 (09:00→20:14)
[2018-10-10] MEDS ORDERED: risperiDONE LONG-ACTING 37.5 MG/2 ML INJ (J2794) IM SCH (09:00)
[2018-10-10] MEDS: ENOXAPARIN 40 MG/0.4 ML SYRINGE (J1650) SC SCH (09:00)
[2018-10-10 09:32] LABS: BASO # 0.1 10^3/uL (0.0-0.2); BASO % 1.2 % (0.0-1.0); EOS % 0.7 % (0.0-3.0); HEMATOCRIT 39.1 % (36.0-47.0); HEMOGLOBIN 13.2 g/dl (12.0-15.5); LYMPH # 1.2 10^3/uL (1.5-4.5); LYMPH % 26.9 % (24.0-44.0); MEAN CORPUSCULAR HEMOGLOBIN 29.1 pg (27.0-33.0); MEAN CORPUSCULAR HGB CONC 33.8 g/dl (32.0-36.5); MEAN CORPUSCULAR VOLUME 86.1 fl (80.0-96.0); MONO # 0.4 10^3/uL (0.0-0.8); MONO % 8.2 % (0.0-5.0); NEUTROPHILS # 2.7 10^3/uL (1.8-7.7); NEUTROPHILS % 62.3 % (36.0-66.0); PLATELET COUNT, AUTOMATED 245 10^3/uL (150-450); RED BLOOD COUNT 4.54 10^6/uL (4.00-5.40); WHITE BLOOD COUNT 4.3 10^3/uL (4.0-10.0)
[2018-10-10] MEDS: risperiDONE 2 MG TAB PO SCH ×2 (09:41→20:13)
[2018-10-10 09:45] LABS: ALBUMIN 3.6 GM/DL (3.2-5.2); ALT/SGPT 38 U/L (12-78); BILIRUBIN,TOTAL 0.7 MG/DL (0.2-1.0); BLOOD UREA NITROGEN 10 MG/DL (7-18); CALCIUM LEVEL 8.6 MG/DL (8.5-10.1); CARBON DIOXIDE LEVEL 27 MEQ/L (21-32); CHLORIDE LEVEL 107 MEQ/L (98-107); GLOMERULAR FILTRATION RATE > 60.0 (>51); GLUCOSE, FASTING 114 MG/DL (70-100); POTASSIUM SERUM 3.6 MEQ/L (3.5-5.1); SODIUM LEVEL 144 MEQ/L (136-145); TOTAL PROTEIN 6.3 GM/DL (6.4-8.2)
--- NOTE | 2018-10-10 11:04 | IPNPDOC ---
Date Seen The patient was seen on 10/10/18. Progress Note SUBJECTIVE: Patient is more conversant today, she tells me she feels fine she has no pain she has no medical problems. She tells me she takes no prescriptions other than trazodone. She tells me that she's been told she has schizophrenia but otherwise has no problems that she knows of. She cannot tell me a place where she lives for full number or any person in her life room unable to contact in order to obtain any kind of collateral information. She tells me she would like to leave has no place to go she denies suicidal ideation OBJECTIVE PHYSICAL EXAMINATION: VITAL SIGNS: Please see below. GENERAL: Middle-age female who is tearful at times sitting on a couch no acute distress HEENT: Cranial nerves grossly intact CARDIOVASCULAR: S1-S2 regular. RESPIRATORY: Clear to auscultation bilaterally. ABDOMINAL: Obese bowel sounds present abdomen soft and nontender EXTREMITIES: No clubbing cyanosis or edema no evidence of stigmata of chronic liver disease NEUROLOGICAL: No gross focal deficits LABORATORY DATA, IMAGING STUDIES, MICROBIOLOGY: Please see below. DVT prophylaxis ordered?: Lovenox ASSESSMENT AND PLAN: This is a 52-year-old female with schizophrenia PROBLEMS: 1. Schizophrenia: Psychiatry greatly appreciated she is agreeable to taking some antipsychotic medication at this time I do think that it would benefit her greatly. No evidence for any medical delirium or acute medical illness to suggest that this etiology for her unusual behavior. I suspect it is more likely related to her self admitted previous diagnosis of schizophrenia. Her ammonia level is normal as she has no stigmata of chronic liver disease no evidence of chronic liver disease. I see no reason to avoid hepatotoxic medications or to recheck any further ammonia levels. At this point, I believe she is medically stable for discharge however the primary problem remains a safe disposition plan for her. I'll recheck to psychiatry today to see if they feel she may warrant an inpatient mental health hospitalization for her psychosis. If if so and even if not she may require further placement options to be explored through a PFS. I suspect that as she takes her antipsychotic she may become more open to discussions and revealing about her history 2. Graves' disease: Thyroid panel is unremarkable. DISPOSITION: Pending psych evaluation and safe disposition arrangement. VS, I&O, 24H, Fishbone Vital Signs/I&O Vital Signs Date Time Temp Pulse Resp B/P (MAP) Pulse Ox O2 Delivery O2 Flow Rate FiO2 10/10/18 06:00 98.5 110 18 138/76 (96) 96 10/08/18 07:15 Room Air I&O- Last 24 Hours up to 6 AM 10/10/18 06:00 Intake Total 120 ml Output Total 0 ml Balance 120 ml Laboratory Data 24H LABS Laboratory Tests 2 10/10/18 09:06: Immature Granulocyte % (Auto) 0.7, White Blood Count 4.3, Red Blood Count 4.54, Hemoglobin 13.2, Hematocrit 39.1, Mean Corpuscular Volume 86.1, Mean Corpuscular Hemoglobin 29.1, Mean Corpuscular Hemoglobin Concent 33.8, Red Cell Distribution Width 12.6, Platelet Count 245, Neutrophils (%) (Auto) 62.3, Lymphocytes (%) (Auto) 26.9, Monocytes (%) (Auto) 8.2H, Eosinophils (%) (Auto) 0.7, Basophils (%) (Auto) 1.2H, Neutrophils # (Auto) 2.7, Lymphocytes # (Auto) 1.2L, Monocytes # (Auto) 0.4, Eosinophils # (Auto) 0.0, Basophils # (Auto) 0.1, Nucleated Red Blood Cells % (auto) 0.0, Anion Gap 10, Glomerular Filtration Rate > 60.0, Blood Urea Nitrogen 10, Creatinine 0.60, Sodium Level 144, Potassium Level 3.6, Chloride Level 107, Carbon Dioxide Level 27, Calcium Level 8.6, Aspartate Amino Transf (AST/SGOT) 37, Alanine Aminotransferase (ALT/SGPT) 38, Alkaline Phosphatase 77, Total Bilirubin 0.7, Total Protein 6.3L, Albumin 3.6, Albumin/Globulin Ratio 1.33 CBC/BMP Laboratory Tests 10/10/18 09:06 Red Blood Count 4.54, Mean Corpuscular Volume 86.1, Mean Corpuscular Hemoglobin 29.1, Mean Corpuscular Hemoglobin Concent 33.8, Red Cell Distribution Width 12.6, Neutrophils (%) (Auto) 62.3, Lymphocytes (%) (Auto) 26.9, Monocytes (%) (Auto) 8.2 H, Eosinophils (%) (Auto) 0.7, Basophils (%) (Auto) 1.2 H, Neutrophils # (Auto) 2.7, Lymphocytes # (Auto) 1.2 L, Monocytes # (Auto) 0.4, Eosinophils # (Auto) 0.0, Basophils # (Auto) 0.1, Calcium Level 8.6, Aspartate Amino Transf (AST/SGOT) 37, Alanine Aminotransferase (ALT/SGPT) 38, Alkaline Phosphatase 77, Total Bilirubin 0.7, Total Protein 6.3 L, Albumin 3.6 LYDIA PATTERSON MD Oct 10, 2018 11:04
--- NOTE | 2018-10-10 12:35 | MHIPNPDOC ---
[facility] Progress Note Progress Note DATE OF SERVICE: 10/10/18 HISTORY: Per medical admit note: "Pt is a 52 YO F with unknown past medical history and past psychiatric history who was found naked and nonverbal [place] [address]. She was saying things that included "Anthony is " and leads found her to be fearful, wide-eyed, and paranoid. She was also agitated and restless. She demonstrated disorientation and confusion as well as difficulty concentrating. She is reportedly from [facility] and it is unknown how she found her way to [place]. She denies any recent drug use. The ED at [facility] was able to find the name of a hospital where she had been previously treated in [place] and found that she has Graves' disease and unknown psychiatric history for which she takes trazodone daily. She had an unremarkable CT head, but slightly elevated ammonia level at 41. Her CPK level was also found to be 638. [facility] gave the patient 1 mg of Ativan and Narcan, but it is unclear whether they gave her lactulose. She was brought to [facility] for further medical management and psychiatry intervention. On exam, she is not answering any questions appropriately." Pt seen with sitter present. Sitter in place as pt has attempted to elope mul tiple times since admitted. Pt pacing room when seen and states she'd like to go. Asked pt to sit while we talked and did for a second then stood up with slightly defensive body language (arms across chest) and shortly after resumed pacing. States she's here due to being naked, "walking" on the side of the road due to unknown reason and denies she thinks there's anything bizarre about that behavior. States she was looking for her car but when asked if she knew where it was unable to answer. Asked her to tell me about herself and didn't give any answers. Asked about her psychiatric history and states she's been diagnosed with anxiety before and has taken trazodone. Asked further about any other diagnosis and states "schizophrenia but that was miss diagnosis" but won't give other diagnosis. Attempted to complete MMSE and pt only oriented to self and that she in a hospital, unable to answer day, month, or year. 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 Distended abdomen most likely due to liver disease due to chronic alcohol use. VITAL SIGNS: See below. NEW TEST RESULTS: thyroid panel wnl, pending utox, ammonia 28. CURRENT MEDICATIONS: See below. MENTAL STATUS EXAMINATION: Patient is a 52 year old female, who is dressed in hospital gown pacing room, uneaten tray of food. Sitter present to prevent pt from eloping Speech is limited to few word responses Language skills are limited Thought processes including: concrete with blocking Thought content: denies si/hi, focused on leaving to find her car Abstract reasoning, and computation: poor Description of associations: illogical or no response Description of abnormal or psychotic thoughts: appears paranoid and very confused Judgment: poor Insight: poor Orientation to self only Recent and remote memory: poor recent and remote Attention span and concentration: very limited Language: limited Fund of knowledge: limited by confusion Mood: anxious Affect: anxious, pacing, defensive DIAGNOSES: psychosis unspecified ASSESSMENT:Pt seen with sitter present at first resting then woke up. Per vicenta, pt remembering more with start and compliance on risperdal that she's tolerating well. Able to remember she's from [place] and went to an outpatient clinic where "Hai" is the typesetting supervisor. Still can't remember where her car is. States she's doing well and hopes to go home soon. Recommended pt take risperdal consta as she's tolerating and benefiting oral risperdal and will be able to speed up ability to d/c her back home once SW on med unit finds and contacts her outpatient clinic in [place]. Agrees to think about it prior to accepting to take it right away. States she's been on long acting antipsychotics in the past. Denies SI/HI. Pt no longer pacing, resting peacefully, and walking around her unit in am with staff with not attempts to elope. Pt appears to most likely be a chronic schizophrenic that lives a nomadic life b/c she prefers that as most that live this lifestyle prefer to be homeless and will intentionally leave homes due to worsening voices/paranoia and making individual uncomfortable. The are rarely if ever compliant on medications or with follow-up. Most not likely to harm self or others. Will continue to follow and see if can get her to further answer some questions about her origins and if we can help her return to area of living. MANAGEMENT PLAN: 1. zyprexa zydis 5mg q6hr prn anxiety/Agitation. NO ATIVAN will make pt more delirious/agitated/confused. Continue Risperdal 2mg bid. Risperdal Consta 37.5mg IM x1 (zyprexa and risperdal metabolized in liver but risks out way benefits as pt attempting to elope and has very poor insight and judgment.) 2. Continue sitter. 3. SW to contact after finding outpatient to determine safe d/c for pt as most likely ready to d/c after risperdal consta given and tolerated well. TIME SPENT: 30 minutes. Vital Signs Vital Signs Vital Signs Date Time Temp Pulse Resp B/P (MAP) Pulse Ox O2 Delivery O2 Flow Rate FiO2 10/10/18 06:00 98.5 110 18 138/76 (96) 96 10/08/18 07:15 Room Air Laboratory Data 24H Labs Laboratory Tests 2 10/10/18 09:06: Immature Granulocyte % (Auto) 0.7, White Blood Count 4.3, Red Blood Count 4.54, Hemoglobin 13.2, Hematocrit 39.1, Mean Corpuscular Volume 86.1, Mean Corpuscular Hemoglobin 29.1, Mean Corpuscular Hemoglobin Concent 33.8, Red Cell Distribution Width 12.6, Platelet Count 245, Neutrophils (%) (Auto) 62.3, Lymphocytes (%) (Auto) 26.9, Monocytes (%) (Auto) 8.2H, Eosinophils (%) (Auto) 0.7, Basophils (%) (Auto) 1.2H, Neutrophils # (Auto) 2.7, Lymphocytes # (Auto) 1.2L, Monocytes # (Auto) 0.4, Eosinophils # (Auto) 0.0, Basophils # (Auto) 0.1, Nucleated Red Blood Cells % (auto) 0.0, Anion Gap 10, Glomerular Filtration Rate > 60.0, Blood Urea Nitrogen 10, Creatinine 0.60, Sodium Level 144, Potassium Level 3.6, Chloride Level 107, Carbon Dioxide Level 27, Calcium Level 8.6, Aspartate Amino Transf (AST/SGOT) 37, Alanine Aminotransferase (ALT/SGPT) 38, Alkaline Phosphatase 77, Total Bilirubin 0.7, Total Protein 6.3L, Albumin 3.6, Albumin/Globulin Ratio 1.33 CBC/BMP Laboratory Tests 10/10/18 09:06 Red Blood Count 4.54, Mean Corpuscular Volume 86.1, Mean Corpuscular Hemoglobin 29.1, Mean Corpuscular Hemoglobin Concent 33.8, Red Cell Distribution Width 12.6, Neutrophils (%) (Auto) 62.3, Lymphocytes (%) (Auto) 26.9, Monocytes (%) (Auto) 8.2 H, Eosinophils (%) (Auto) 0.7, Basophils (%) (Auto) 1.2 H, Neutrophils # (Auto) 2.7, Lymphocytes # (Auto) 1.2 L, Monocytes # (Auto) 0.4, Eosinophils # (Auto) 0.0, Basophils # (Auto) 0.1, Calcium Level 8.6, Aspartate Amino Transf (AST/SGOT) 37, Alanine Aminotransferase (ALT/SGPT) 38, Alkaline Phosphatase 77, Total Bilirubin 0.7, Total Protein 6.3 L, Albumin 3.6 Current Medications Current Medications Enoxaparin Sodium (Lovenox) 40 mg DAILY SC ; Start 10/08/18 at 09:00 Haloperidol (Haldol) 0.5 mg BID PO ; Start 10/08/18 at 09:00 Haloperidol (Haldol) 2 mg Q6HP PRN IV AGITATION; Start 10/08/18 at 06:45 Home Med (Med Rec Complete!) ASDIRECTED XX ; Start 10/08/18 at 03:45; Stop 10/08/18 at 03:45; Status DC Home Med (Med Rec Complete!) ASDIRECTED XX ; Start 10/08/18 at 10:00; Stop 10/08/18 at 10:20; Status DC Lorazepam (Ativan) 2 mg Q6HP PRN IV AGITATION; Start 10/08/18 at 06:45; Status Cancel Lorazepam (Ativan) 2 mg STAT STAT IV Last administered on 10/08/18at 06:56; Start 10/08/18 at 06:38; Stop 10/08/18 at 06:42; Status DC Olanzapine (ZyPREXA ZYDIS) 5 mg Q4HP PRN PO ANXIETY/AGITATION Last administered on 10/09/18at 18:46; Start 10/08/18 at 14:15 Risperidone (RisperDAL) 1 mg BID PO Last administered on 10/09/18at 09:35; Start 10/08/18 at 21:00; Stop 10/09/18 at 15:04; Status DC Risperidone (RisperDAL) 2 mg BID PO Last administered on 10/10/18at 09:41; Start 10/09/18 at 21:00 Allergies Coded Allergies: Sulfa (Sulfonamide Antibiotics) (Verified Allergy, Unknown, 10/08/18) latex (Verified Allergy, Unknown, 10/08/18) JERED RAVI DO Oct 10, 2018 12:35 pm
[2018-10-10 14:00] VITALS: BP 130/80
[2018-10-10] MEDS: OLANZapine ORAL DISINTEGRATING TAB 5MG PO PRN (18:25)
[2018-10-10 22:00] VITALS: BP 147/81
[2018-10-11 06:00] VITALS: BP 126/72
[2018-10-11 06:23] LABS: BASO % 0.9 % (0.0-1.0); EOS # 0.1 10^3/uL (0.0-0.50); EOS % 1.5 % (0.0-3.0); HEMATOCRIT 37.7 % (36.0-47.0); HEMOGLOBIN 12.7 g/dl (12.0-15.5); LYMPH # 1.6 10^3/uL (1.5-4.5); LYMPH % 33.5 % (24.0-44.0); MEAN CORPUSCULAR HEMOGLOBIN 29.1 pg (27.0-33.0); MEAN CORPUSCULAR HGB CONC 33.7 g/dl (32.0-36.5); MEAN CORPUSCULAR VOLUME 86.3 fl (80.0-96.0); MONO # 0.4 10^3/uL (0.0-0.8); MONO % 7.9 % (0.0-5.0); NEUTROPHILS # 2.6 10^3/uL (1.8-7.7); NEUTROPHILS % 56.2 % (36.0-66.0); PLATELET COUNT, AUTOMATED 237 10^3/uL (150-450); RED BLOOD COUNT 4.37 10^6/uL (4.00-5.40); WHITE BLOOD COUNT 4.7 10^3/uL (4.0-10.0)
[2018-10-11 06:43] LABS: ALBUMIN 3.4 GM/DL (3.2-5.2); ALT/SGPT 34 U/L (12-78); BILIRUBIN,TOTAL 0.6 MG/DL (0.2-1.0); BLOOD UREA NITROGEN 8 MG/DL (7-18); CALCIUM LEVEL 8.5 MG/DL (8.5-10.1); CARBON DIOXIDE LEVEL 29 MEQ/L (21-32); CHLORIDE LEVEL 108 MEQ/L (98-107); CREATININE FOR GFR 0.62 MG/DL (0.55-1.30); GLOMERULAR FILTRATION RATE > 60.0 (>51); GLUCOSE, FASTING 121 MG/DL (70-100); POTASSIUM SERUM 3.5 MEQ/L (3.5-5.1); SODIUM LEVEL 142 MEQ/L (136-145); TOTAL PROTEIN 6.2 GM/DL (6.4-8.2)
[2018-10-11] MEDS: risperiDONE 2 MG TAB PO SCH (09:00)
[2018-10-11] MEDS: ENOXAPARIN 40 MG/0.4 ML SYRINGE (J1650) SC SCH (09:00)
[2018-10-11] MEDS: HALOPERIDOL 0.5 MG TAB PO SCH (09:00)
--- NOTE | 2018-10-11 13:11 | MHIPNPDOC ---
[facility] Progress Note Progress Note DATE OF SERVICE: 10/11/18 HISTORY: Per medical admit note: "Pt is a 52 YO F with unknown past medical history and past psychiatric history who was found naked and nonverbal walking [place] [address]. She was saying things that included "Anthony is " and leads found her to be fearful, wide-eyed, and paranoid. She was also agitated and restless. She demonstrated disorientation and confusion as well as difficulty concentrating. She is reportedly from [facility] and it is unknown how she found her way to [place]. She denies any recent drug use. The ED at [facility] was able to find the name of a hospital where she had been previously treated in [place] and found that she has Graves' disease and unknown psychiatric history for which she takes trazodone daily. She had an unremarkable CT head, but slightly elevated ammonia level at 41. Her CPK level was also found to be 638. [facility] gave the patient 1 mg of Ativan and Narcan, but it is unclear whether they gave her lactulose. She was brought to [facility] for further medical management and psychiatry intervention. On exam, she is not answering any questions appropriately." Pt seen with sitter present. Sitter in place as pt has attempted to elope mul tiple times since admitted. Pt pacing room when seen and states she'd like to go. Asked pt to sit while we talked and did for a second then stood up with slightly defensive body language (arms across chest) and shortly after resumed pacing. States she's here due to being naked, "walking" on the side of the road due to unknown reason and denies she thinks there's anything bizarre about that behavior. States she was looking for her car but when asked if she knew where it was unable to answer. Asked her to tell me about herself and didn't give any answers. Asked about her psychiatric history and states she's been diagnosed with anxiety before and has taken trazodone. Asked further about any other diagnosis and states "schizophrenia but that was miss diagnosis" but won't give other diagnosis. Attempted to complete MMSE and pt only oriented to self and that she in a hospital, unable to answer day, month, or year. 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 Distended abdomen most likely due to liver disease due to chronic alcohol use. VITAL SIGNS: See below. NEW TEST RESULTS: thyroid panel wnl, pending utox, ammonia 28. CURRENT MEDICATIONS: See below. MENTAL STATUS EXAMINATION: Patient is a 52 year old female, who is dressed in hospital gown pacing room, uneaten tray of food. Sitter present to prevent pt from eloping Speech is limited to few word responses Language skills are limited Thought processes including: concrete with blocking, internally preoccupied Thought content: denies si/hi, focused on leaving to find her car Abstract reasoning, and computation: poor Description of associations: illogical or no response Description of abnormal or psychotic thoughts: appears paranoid and very confused, internally preoccupied Judgment: poor Insight: poor Orientation to self only Recent and remote memory: poor recent and remote Attention span and concentration: very limited Language: limited Fund of knowledge: limited by confusion Mood: anxious Affect: anxious, pacing, defensive DIAGNOSES: psychosis unspecified ASSESSMENT:Pt seen with sitter present at first resting then woke up. Continues to appear preoccupied internally with thought blocking, poor memory, improving paranoia. Denies hallucinations. Able to remember "[facility] out patient clinic," and continues to state she's from [place] and lives in an [facility] when "Hai" is the drying room supervisor. Still can't remember where her car is. States she's doing well and hopes to go home soon. Took risperdal consta but refused oral risperdal this am. Spoke with SW who is attempting to reach pts family with no luck. Can continue search and d/c planning on [facility] with transfer to unit andd more routine psychiatric care. Denies SI/HI. Pt no longer pacing, resting peacefully, and walking around her unit in am with staff. MANAGEMENT PLAN: 1. Continue Risperdal 3mg bid. 2. transfer [facility]. 3. SW to contact after finding outpatient to determine safe d/c for pt TIME SPENT: 30 minutes. Vital Signs Vital Signs Date Time Temp Pulse Resp B/P (MAP) Pulse Ox O2 Delivery O2 Flow Rate FiO2 10/11/18 06:00 98.0 95 18 126/72 (90) 94 10/08/18 07:15 Room Air Laboratory Data 24H Labs Laboratory Tests 2 10/11/18 06:05: Immature Granulocyte % (Auto) 0.0, White Blood Count 4.7, Red Blood Count 4.37, Hemoglobin 12.7, Hematocrit 37.7, Mean Corpuscular Volume 86.3, Mean Corpuscular Hemoglobin 29.1, Mean Corpuscular Hemoglobin Concent 33.7, Red Cell Distribution Width 12.6, Platelet Count 237, Neutrophils (%) (Auto) 56.2, Lymphocytes (%) (Auto) 33.5, Monocytes (%) (Auto) 7.9H, Eosinophils (%) (Auto) 1.5, Basophils (%) (Auto) 0.9, Neutrophils # (Auto) 2.6, Lymphocytes # (Auto) 1.6, Monocytes # (Auto) 0.4, Eosinophils # (Auto) 0.1, Basophils # (Auto) 0.0, Nucleated Red Blood Cells % (auto) 0.0, Anion Gap 5L, Glomerular Filtration Rate > 60.0, Blood Urea Nitrogen 8, Creatinine 0.62, Sodium Level 142, Potassium Level 3.5, Chloride Level 108H, Carbon Dioxide Level 29, Calcium Level 8.5, Aspartate Amino Transf (AST/SGOT) 23, Alanine Aminotransferase (ALT/SGPT) 34, Alkaline Phosphatase 69, Total Bilirubin 0.6, Total Protein 6.2L, Albumin 3.4, Albumin/Globulin Ratio 1.21 CBC/BMP Laboratory Tests 10/11/18 06:05 Red Blood Count 4.37, Mean Corpuscular Volume 86.3, Mean Corpuscular Hemoglobin 29.1, Mean Corpuscular Hemoglobin Concent 33.7, Red Cell Distribution Width 12.6, Neutrophils (%) (Auto) 56.2, Lymphocytes (%) (Auto) 33.5, Monocytes (%) (Auto) 7.9 H, Eosinophils (%) (Auto) 1.5, Basophils (%) (Auto) 0.9, Neutrophils # (Auto) 2.6, Lymphocytes # (Auto) 1.6, Monocytes # (Auto) 0.4, Eosinophils # (Auto) 0.1, Basophils # (Auto) 0.0, Calcium Level 8.5, Aspartate Amino Transf (AST/SGOT) 23, Alanine Aminotransferase (ALT/SGPT) 34, Alkaline Phosphatase 69, Total Bilirubin 0.6, Total Protein 6.2 L, Albumin 3.4 Current Medications Current Medications Enoxaparin Sodium (Lovenox) 40 mg DAILY SC ; Start 10/08/18 at 09:00 Haloperidol (Haldol) 0.5 mg BID PO ; Start 10/08/18 at 09:00 Haloperidol (Haldol) 2 mg Q6HP PRN IV AGITATION; Start 10/08/18 at 06:45 Home Med (Med Rec Complete!) ASDIRECTED XX ; Start 10/08/18 at 03:45; Stop 10/08/18 at 03:45; Status DC Home Med (Med Rec Complete!) ASDIRECTED XX ; Start 10/08/18 at 10:00; Stop 09/27 08/17 at 10:20; Status DC Lorazepam (Ativan) 2 mg Q6HP PRN IV AGITATION; Start 10/08/18 at 06:45; Status Cancel Lorazepam (Ativan) 2 mg STAT STAT IV Last administered on 10/08/18at 06:56; Start 10/08/18 at 06:38; Stop 10/08/18 at 06:42; Status DC Olanzapine (ZyPREXA ZYDIS) 5 mg Q4HP PRN PO ANXIETY/AGITATION Last administered on 10/10/18at 18:25; Start 10/08/18 at 14:15 Risperidone (RisperDAL Consta) 37.5 mg Q14D@09 IM Last administered on 10/10/18at 15:25; Start 10/10/18 at 09:00 Risperidone (RisperDAL) 1 mg BID PO Last administered on 10/09/18at 09:35; Start 10/08/18 at 21:00; Stop 10/09/18 at 15:04; Status DC Risperidone (RisperDAL) 2 mg BID PO Last administered on 10/10/18at 20:13; Start 10/09/18 at 21:00 Allergies Coded Allergies: Sulfa (Sulfonamide Antibiotics) (Verified Allergy, Unknown, 10/08/18) latex (Verified Allergy, Unknown, 10/08/18) JERED RAVI DO Oct 11, 2018 1:11 pm
[2018-10-11 14:00] VITALS: BP 130/67
[2018-10-11] MEDS ORDERED: RISP2TAB32 PO (14:31)
[2018-10-11] MEDS ORDERED: OLAN5ZYD PO (14:31)
--- NOTE | 2018-10-11 14:38 | DS.PDOC ---
Discharge Summary General Date of Admission Oct 08, 2018 at 05:00 Date of Discharge 10/11/18 Attending Physician: KALEB BALTAZAR MD Specialist/Consultants Involve: JERED RAVI DO Discharge Summary PROCEDURES PERFORMED DURING STAY: None ADMITTING DIAGNOSES: 1. Psychosis DISCHARGE DIAGNOSES: 1. Psychosis COMPLICATIONS/CHIEF COMPLAINT: Encephalopathy Acute. HISTORY OF PRESENT ILLNESS: "Yeny Coleman is a 52 YO F with unknown past medical history who was found naked and nonverbal walking along I. She was saying things that included "Anthony is " and leads found her to be fearful, wide-eyed, and paranoid. She was also agitated and restless. She demonstrated disorientation and confusion as well as difficulty concentrating. He is reportedly from [facility] and it is unknown how she found her way to [place]. She denies any recent drug use. The ED at [facility] was able to find the name of a hospital where she had been previously treated in [place] and found that she has Graves' disease and unknown psychiatric history for which she takes trazodone daily. She had an unremarkable CT head, but slightly elevated ammonia level at 41. Her CPK level was also found to be 638. [facility] gave the patient 1 mg of Ativan and Na rcan, but it is unclear whether they gave her lactulose.. She was brought to [facility] for further medical management and psychiatry intervention. On exam, she is not answering any questions appropriately." HOSPITAL COURSE: Patient's a 52-year-old female with known known past medical history was brought in after found nonverbal walking naked along [address]. She has had very limited verbal communication to course of admission and offered little insight. Patient was evaluated by psychiatry team and started on medications with slight improvement. Patient is still reserve and does not answer many questions. However, she is medically stable for discharge from medical point of view but appears unsafe psychiatrically. Patient is to discharge to inpatient mental health unit for continuing evaluation and treatment until she is safe for discharge with appropriate placement. DISCHARGE MEDICATIONS: Please see below. ALLERGIES: Please see below. PHYSICAL EXAMINATION ON DISCHARGE: VITAL SIGNS: Please see below. General: No acute distress, Alert Eyes: Normal sclera, EOMI, EMILY HENT: Atraumatic, neck supple, moist mucous membranes Cardiovascular: Normal rate, normal rhythm. No murmurs appreciated. Pulmonary: Clear to auscultation b/l, no wheezing GI: Soft, nontender, nondistended Skin: Warm and dry Neuro: CN grossly intact. No focal deficits. Unable to fully assess. Psych: Answer few questions. Staring gaze with responses to only some questions. Denies suicidal ideation. LABORATORY DATA: Please see below. IMAGING: Liver US- Impression: Evidence of fatty infiltration of the liver. Some cortical atrophy right kidney. No other abnormality. ACTIVITY: [As tolerated]. DIET: Regular diet DISCHARGE PLAN: Transfer to inpatient mental health unit for further evaluation and treatment. DISPOSITION: . DISCHARGE INSTRUCTIONS: 1. None ITEMS TO FOLLOWUP ON ON OUTPATIENT: 1. None DISCHARGE CONDITION: [Stable]. TIME SPENT ON DISCHARGE: Greater than 30 minutes. Vital Signs/I&Os Vital Signs Date Time Temp Pulse Resp B/P (MAP) Pulse Ox O2 Delivery O2 Flow Rate FiO2 10/11/18 06:00 98.0 95 18 126/72 (90) 94 10/08/18 07:15 Room Air I&O- Last 24 Hours up to 6 AM 10/11/18 06:00 Intake Total 550 ml Output Total 0 ml Balance 550 ml Laboratory Data Labs 24H Laboratory Tests 2 10/11/18 06:05: Immature Granulocyte % (Auto) 0.0, White Blood Count 4.7, Red Blood Count 4.37, Hemoglobin 12.7, Hematocrit 37.7, Mean Corpuscular Volume 86.3, Mean Corpuscular Hemoglobin 29.1, Mean Corpuscular Hemoglobin Concent 33.7, Red Cell Distribution Width 12.6, Platelet Count 237, Neutrophils (%) (Auto) 56.2, Lymphocytes (%) (Auto) 33.5, Monocytes (%) (Auto) 7.9H, Eosinophils (%) (Auto) 1.5, Basophils (%) (Auto) 0.9, Neutrophils # (Auto) 2.6, Lymphocytes # (Auto) 1.6, Monocytes # (Auto) 0.4, Eosinophils # (Auto) 0.1, Basophils # (Auto) 0.0, Nucleated Red Blood Cells % (auto) 0.0, Anion Gap 5L, Glomerular Filtration Rate > 60.0, Blood Urea Nitrogen 8, Creatinine 0.62, Sodium Level 142, Potassium Level 3.5, Chloride Level 108H, Carbon Dioxide Level 29, Calcium Level 8.5, Aspartate Amino Transf (AST/SGOT) 23, Alanine Aminotransferase (ALT/SGPT) 34, Alkaline Phosphatase 69, Total Bilirubin 0.6, Total Protein 6.2L, Albumin 3.4, Albumin/Globulin Ratio 1.21 CBC/BMP Laboratory Tests 10/11/18 06:05 Red Blood Count 4.37, Mean Corpuscular Volume 86.3, Mean Corpuscular Hemoglobin 29.1, Mean Corpuscular Hemoglobin Concent 33.7, Red Cell Distribution Width 12.6, Neutrophils (%) (Auto) 56.2, Lymphocytes (%) (Auto) 33.5, Monocytes (%) (Auto) 7.9 H, Eosinophils (%) (Auto) 1.5, Basophils (%) (Auto) 0.9, Neutrophils # (Auto) 2.6, Lymphocytes # (Auto) 1.6, Monocytes # (Auto) 0.4, Eosinophils # (Auto) 0.1, Basophils # (Auto) 0.0, Calcium Level 8.5, Aspartate Amino Transf (A ST/SGOT) 23, Alanine Aminotransferase (ALT/SGPT) 34, Alkaline Phosphatase 69, Total Bilirubin 0.6, Total Protein 6.2 L, Albumin 3.4 Discharge Medications Scheduled Risperidone (Risperdal) 2 Mg Tablet, 2 MG PO BID Scheduled PRN Olanzapine (Olanzapine Odt) 5 Mg Tab.rapdis, 5 MG PO Q4HP PRN for ANXIETY/AGITATION Trazodone HCl (Trazodone HCl) 150 Mg Tablet, 150 MG PO QHS PRN for SLEEP, (Repor haja) LAST FILLED 09/23/18 Allergies Coded Allergies: Sulfa (Sulfonamide Antibiotics) (Verified Allergy, Unknown, 10/08/18) latex (Verified Allergy, Unknown, 10/08/18) KALEB BALTAZAR MD Oct 11, 2018 14:38
== END 2018-10-11 15:25 | DRG 52 ==
LOC: M ED 01:24 → M ED INP 05:00 → M MS5PR 08:27
PROVIDERS: ADMIT Internal Medicine Nephrology; ATTEND Student in an Organized Health Care Education/Training Program
DX: G93.40 Encephalopathy, unspecified (principal); E05.90 Thyrotoxicosis, unspecified without thyrotoxic crisis or storm; Z88.2 Allergy status to sulfonamides; Z91.040 Latex allergy status; F10.10 Alcohol abuse, uncomplicated; F41.9 Anxiety disorder, unspecified; F20.9 Schizophrenia, unspecified

== ENCOUNTER 2018-10-11 14:57 | Inpatient (IN) | payer SELFPAY ==
[~2018-10-11] VITALS: Ht 160 cm; Wt 68.9 kg
[~2018-10-11 14:57] MED LIST: OLAN5ZYD PO; RISP2TAB32 PO; TRAZ150T90 PO
[2018-10-11] MEDS ORDERED: ACETAMINOPHEN TAB 650MG DOSE (2X325MG) PO PRN (15:15)
[2018-10-11] MEDS ORDERED: traZODone 50 MG TAB PO PRN (15:15)
[2018-10-11] MEDS ORDERED: MOM 30ML SUSPENSION UDC PO PRN (15:15)
[2018-10-11] MEDS ORDERED: MAALOX 30 ML SUSP *UDC PO PRN (15:15)
[2018-10-11] MEDS: risperiDONE 3 MG TAB PO SCH (21:03)
--- NOTE | 2018-10-11 21:33 | HPE ---
DATE OF ADMISSION: 10/11/2018 HISTORY: Ms. Coleman was examined on the inpatient mental health unit in the presence of one of the nurses. Per her admission history and physical, she was just discharged after being hospitalized on the hospitalist service for three days for unknown psychiatric disorder. During that hospitalization, it was determined that she had a past history of Grave's disease and normal thyroid functions. She had one minimally elevated ammonia that was not still elevated when repeated the next day and had a liver ultrasound that showed fatty liver, but no cirrhosis. CURRENT MEDICATIONS: - Risperdal 3 mg twice a day - trazodone 50 mg at bedtime (q.h.s.) - Tylenol - magnesium oxide - Mylanta ALLERGIES: SULFA SOCIAL HISTORY: Denies smoking or alcohol. PHYSICAL EXAMINATION: VITAL SIGNS: Per flow sheet, 130/70. He is alert and conversant. She is guarded, but does answer questions. HEENT: Unremarkable. Thyroid nonpalpable. Lungs: Clear. Heart: Without murmur. Abdomen: Soft, nontender. No masses. Liver spleen not enlarged. She has no asterixis. Normal coordination. Normal [id number] testing. IMPRESSION: 1. Past history of hypothyroidism, seems to have gone in remission. Thyroid functions are normal off any medication. 2. Elevated ammonia. This was not confirmed on repeat testing. There is no cirrhosis on the ultrasound. There was no other lab abnormalities such as pancytopenia that would suggest the presence of cirrhosis. Some psychiatric medications can raise ammonia level. Most commonly is valproic acid, but it does not look like she is on that, although based on the lack of any medical information prior to her hospitalization, it is conceivable that she was taking this as an outpatient. Again, this is purely conjecture. The patient is medically stable. Call if any medical issues arise.
[2018-10-12 06:54] VITALS: BP 128/74
[2018-10-12] MEDS: risperiDONE 3 MG TAB PO SCH (09:00)
--- NOTE | 2018-10-12 10:42 | MHHPEPDOC ---
General Date Of Admission: Oct 11, 2018 Legal Status: 9.37 Chief Complaint "psychosis". History of Present Illness HISTORY OF THE PRESENT ILLNESS: Patient is a 52 -year-old , female, who was seen on consult from medicine prior admission and per consult note: Per medical admit note: "Pt is a 52 YO F with unknown past medical history and past psychiatric history who was found naked and nonverbal walking along [address]. She was saying things that included "Anthony is " and leads found her to be fearful, wide-eyed, and paranoid. She was also agitated and restless. She demonstrated disorientation and confusion as well as difficulty concentrating. She is reportedly from [facility] and it is unknown how she found her way to [place]. She denies any recent drug use. The ED at [facility] was able to find the name of a hospital where she had been previously treated in [place] and found that she has Graves' disease and unknown psychiatric history for which she takes trazodone daily. She had an unremarkable CT head, but slightly elevated ammonia level at 41. Her CPK level was also found to be 638. [facility] gave the patient 1 mg of Ativan and Narcan, but it is unclear whether they gave her lactulose. She was brought to [facility] for further medical management and psychiatry intervention. On exam, she is not answering any questions appropriately." Per psych initial consult note: "Pt seen with sitter present. Sitter in place as pt has attempted to elope multiple times since admitted. Pt pacing room when seen and states she'd like to go. Asked pt to sit while we talked and did for a second then stood up with slightly defensive body language (arms across chest) and shortly after resumed pacing. States she's here due to being naked, "walking" on the side of the road due to unknown reason and denies she thinks there's anything bizarre about that behavior. States she was looking for her car but when asked if she knew where it was unable to answer. Asked her to tell me about herself and didn't give any answers. Asked about her psychiatric history and states she's been diagnosed with anxiety before and has taken trazodone. Asked further about any other diagnosis and states "schizophrenia but that was miss diagnosis" but won't give other diagnosis. Attempted to complete MMSE and pt only oriented to self and that she in a hospital, unable to answer day, month, or year. Asked pt to name objects in room and unable to name TV and will only state "I know what it is."" Per follow-up consult note 10/11/18: "Pt seen with sitter present at first resting then woke up. Continues to appear preoccupied internally with thought blocking, poor memory, improving paranoia. Denies hallucinations. Able to remember "[facility]," and continues to state she's from [place] and lives in an [facility] when "Hai" is the supervisor testing. Still can't remember where her car is. States she's doing well and hopes to go home soon. Took risperdal consta but refused oral risperdal this am. Spoke with PAUL who is attempting to reach pts family with no luck. Can continue search and d/c planning on [facility] with transfer to unit andd more routine psychiatric care. Denies SI/HI. Pt no longer pacing, resting peacefully, and walking around her unit in am with staff." Psychiatric Review of Systems Depression (2 or more weeks): denies Brooklynn (4 or more days of): denies Psychosis: auditory hallucination, delusions, paranoia, disorganization, other (internal preoccupation, thought blocking, poor remote memory) PTSD: denies Anxiety: situational anxiety, stressor related anxiety Past Psychiatric History Previous Psychiatric Diagnosis: Schizophrenia Previous Psychiatric Admissions: unknown Suicide Attempts: unknown Psychiatric Follow-up: [facility] in [place] Psychiatric medications: states she's taken trazodone, haldol, and AOD in past Past Medical History Medical Problems none known Head Injury: No Seizures: No Hospitalizations: No Surgeries: No Family Medical/Psychiatric HX Medical Problems noncontributory unable to assess due to thought blocking and poor memory Psychiatric Disorders: No Addiction: No Suicide Attemps/Completions: No Addiction History denies Social History Unable to assess Childhood: unknown Abuse/Trauma:denies Current Living Situation: states lives in [facility] where Hai is the supervisor testing in [place] Education: unknown Employment: disability? Social Support: unknown Legal: unknown Marital: presumed single Mental Status Examination General Appearance: disheveled, appears stated age, hospital scubs/clothing Build: overweight Demeanor: withdrawn, preoccupied, guarded Eye Contact: fair Activity: slowed, anxious Behavior: cooperative, withdrawn Speech: low in volume, non-spontaneous, impoverished Mood: euthymic, anxious Mood "tired" Affect: constricted, flat, congruent, anxious, disorganized Thought Process: concrete, blocked, slow Thought Content (Delusions): denies SI, HI, AVH (appears preoccupied by internal stimuli), paranoia, other (very internally preoccupied) Thought Content (Other): guarded, internal-stimuli, appears paranoid, unable to elaborate Thought Content (Aggressive): none reported Perception (Hallucinations): auditory (appears preoccupied by internal stimuli) Perception (Other): none reported Cognition (Impairment of): orientation, memory, attention/concentration, ability to abstract Cognition(Intelligence Est.): borderline Oriented: Awake, Alert (oriented to self and hospital only) Insight: improving Judgment: Improving Psychosis: Abstract Thinking, Psychotic Perceptions Diagnoses Schizophrenia - chronic, disorganized type Assessment Pt seen today after admitted [facility] and states risperdal increase is too much as very tired this morning and appears very fatigued. Will decrease as was tolerating 2mg bid much better. Continues to struggle with remote memory and still can not remember an other details regarding history and where she's from, who to contact for her to get her home other than those already supplied. Will speak to d/c [employer] planners to see what they have been able to find out with limited info pt could give. Continues to have internal preoccupation and thought blocking. Appears less paranoid and anxious her though on [facility]. Initial Treatment Plan 1. Patient was admitted on a 9.37 status. 2. Complete history was obtained. 3. With patients permission, family will be contacted and database will be expanded. 4. Patients medication regimen will be reviewed and changed accordingly. 5. Patient will be provided with protected environment. 6. Patient will be treated with individual, group, and milieu therapies. 7. Patient will receive supportive psych-education. 8. Discharge planning will commence immediately. 9. Outpatient follow-up treatment will be strongly recommended. 10. The initial treatment plan will focus initially on: * Depression. * Risk for suicide. * Substance abuse. 11. risperdal 1mg bid (did receive risperdal consta 37.5mg [facility] wi th good tolerance) ESTIMATED LENGTH OF STAY: 5-7 DAYS. TIME SPENT COUNSELING AND COORDINATING INITIAL CARE: 60 minutes. Vital Signs Vital Signs Date Time Temp Pulse Resp B/P (MAP) Pulse Ox O2 Delivery O2 Flow Rate FiO2 10/12/18 06:54 98.7 89 14 128/74 (92) Medications Scheduled Risperidone (Risperdal) 2 Mg Tablet, 2 MG PO BID Scheduled PRN Olanzapine (Olanzapine Odt) 5 Mg Tab.rapdis, 5 MG PO Q4HP PRN for ANXIETY/AGITATION Trazodone HCl (Trazodone HCl) 150 Mg Tablet, 150 MG PO QHS PRN for SLEEP, (Reported) LAST FILLED 09/23/18 Allergies Coded Allergies: Sulfa (Sulfonamide Antibiotics) (Verified Allergy, Unknown, 10/08/18) JERED RAVI DO Oct 12, 2018 10:42 am
--- NOTE | 2018-10-12 15:11 | IPNPDOC ---
Date Seen The patient was seen on 10/12/18. Progress Note SUBJECTIVE: No interval changes overnight. OBJECTIVE PHYSICAL EXAMINATION: VITAL SIGNS: Please see below. GENERAL: no acute distress CARDIOVASCULAR: RRR, no m/r/g RESPIRATORY: CTAB ABDOMINAL: soft, nontender NEUROLOGICAL: no focal deficits PSYCHOLOGICAL: guarded, but answers questions appropriately LABORATORY DATA, IMAGING STUDIES, MICROBIOLOGY: Please see below. Echocardiogram: none DVT prophylaxis ordered?: none ASSESSMENT AND PLAN: This is a 52 YO F with history of Schizophrenia and stable Graves disease who was admitted to [facility] after medical clearance for psychosis of unknown etiology PROBLEMS: 1. Schizophrenia: -Continue treatment with Risperidone and Trazodone, as per psychiatry 2. Hx of Graves disease: -Stable. May benefit from outpatient workup 3. Hx of elevated ammonia: -Stable DISPOSITION: pending [facility] hospitalization and treatment. VS, I&O, 24H, Fishbone Vital Signs/I&O Vital Signs Date Time Temp Pulse Resp B/P (MAP) Pulse Ox O2 Delivery O2 Flow Rate FiO2 10/12/18 06:54 98.7 89 14 128/74 (92) GME ATTESTATION GME ATTESTATION My faculty preceptor for this patient encounter was physically present during the encounter and was fully available. All aspects of the patient interview, examination, medical decision making process, and medical care plan development were reviewed and approved by the faculty preceptor. The faculty preceptor is aware and concurs with the plan as stated in the body of this note and will attest to such by his/her cosignature. LEENA GOMEZ MD Oct 12, 2018 15:11
[2018-10-12 18:37] VITALS: BP 140/77
[2018-10-12] MEDS: risperiDONE 1 MG TAB PO SCH (21:48)
[2018-10-13 07:04] VITALS: BP 120/67
[2018-10-13] MEDS: risperiDONE 1 MG TAB PO SCH ×2 (09:23→21:00)
--- NOTE | 2018-10-13 12:08 | MHIPNPDOC ---
[facility] Progress Note Progress Note DATE OF SERVICE: 10/13/18 HISTORY: Patient is a 52 -year-old , female, who was seen on consult from medicine prior admission and per consult note: Per medical admit note: "Pt is a 52 YO F with unknown past medical history and past psychiatric history who was found naked and nonverbal walking [place] [address] She was saying things that included "Anthony is " and leads found her to be fearful, wide-eyed, and paranoid. She was also agitated and restless. She demonstrated disorientation and confusion as well as difficulty concentrating. She is reportedly from [facility] and it is unknown how she found her way to [place]. She denies any recent drug use. The ED at [facility] was able to find the name of a hospital where she had been previously treated in [place] and found that she has Graves' disease and unknown psychiatric history for which she takes trazodone daily. She had an unremarkable CT head, but slightly elevated ammonia level at 41. Her CPK level was also found to be 638. [facility] gave the patient 1 mg of Ativan and Narcan, but it is unclear whether they gave her lactulose. She was brought to [facility] for further medical management and psychiatry intervention. On exam, she is not answering any questions appropriately." Per psych initial consult note: "Pt seen with sitter present. Sitter in place as pt has attempted to elope multiple times since admitted. Pt pacing room when seen and states she'd like to go. Asked pt to sit while we talked and did for a second then stood up with slightly defensive body language (arms across chest) and shortly after resumed pacing. States she's here due to being naked, "walking" on the side of the road due to unknown reason and denies she thinks there's anything bizarre about that behavior. States she was looking for her car but when asked if she knew where it was unable to answer. Asked her to tell me about herself and didn't give any answers. Asked about her psychiatric history and states she's been diagnosed with anxiety before and has taken trazodone. Asked further about any other diagnosis and states "schizophrenia but that was miss diagnosis" but won't give other diagnosis. Attempted to complete MMSE and pt only oriented to self and that she in a hospital, unable to answer day, month, or year. Asked pt to name objects in room and unable to name TV and will only state "I know what it is."" Per follow-up consult note 10/11/18: "Pt seen with sitter present at first resting then woke up. Continues to appear preoccupied internally with thought blocking, poor memory, improving paranoia. Denies hallucinations. 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 Still can't remember where her car is. States she's doing well and hopes to go home soon. Took risperdal consta but refused oral risperdal this am. Spoke with SW who is attempting to reach pts family with no luck. Can continue search and d/c planning on [facility] with transfer to unit andd more routine psychiatric care. Carloz es SI/HI. Pt no longer pacing, resting peacefully, and walking around her unit in am with staff." VITAL SIGNS: See below. NEW TEST RESULTS: See below. CURRENT MEDICATIONS: See below. MENTAL STATUS EXAMINATION: General Appearance: disheveled, appears stated age, hospital scubs/clothing Build: overweight Demeanor: withdrawn, preoccupied, guarded Eye Contact: fair Activity: slowed, anxious Behavior: cooperative, withdrawn Speech: low in volume, non-spontaneous, impoverished Mood: euthymic, anxious Mood "tired" Affect: constricted, flat, congruent, anxious, disorganized Thought Process: concrete, blocked, slow Thought Content (Delusions): denies SI, HI, AVH (appears preoccupied by internal stimuli), paranoia, other (very internally preoccupied) Thought Content (Other): guarded, internal-stimuli, appears paranoid, unable to elaborate Thought Content (Aggressive): none reported Perception (Hallucinations): auditory (appears preoccupied by internal stimuli) Perception (Other): none reported Cognition (Impairment of): orientation, memory, attention/concentration, ability to abstract Cognition(Intelligence Est.): borderline Oriented: Awake, Alert (oriented to self and hospital only) Insight: improving Judgment: Improving Psychosis: Abstract Thinking, Psychotic Perceptions DIAGNOSES: Schizophrenia - chronic, disorganized type hx bipolar d/o (per [facility] outpatient notes) r/o schizoaffective d/o r/o dissociative amnesia episode ASSESSMENT:Per staff, d/c cyber ops planner has communicated with [facility] outpatient and records sent this am. Records from [facility] indicating pt has a history of bipolar d/o, when last seen there 09/23/18 was agitated and guarded when seen/not delusional or having hallucinations, they had her on risperdal 3mg nightly and trazodone 150mg qhs. Pt seen today and feels better as not fatigued after risperdal decreased back to 1mg bid. Appears to still have though blocking and internal preoccupation with only limited ability to provide history of what happened in between 09/23/18 to now other than she started driving to [facility] and stopped the car, started walking, took her clothes off, and police picked her up at brought her here. Unable to state why stopped car, why she took her clothes off, why she was driving to [facility] as if she has possibly experienced a dissociative amnesia episode with only an ability to supply vague info possibly related to traumatic event at home prior to leaving or while on road to [facility]. Will increase risperidone 2mg bid as appeared to be doing better at that dose. Pt note attending groups secondary paranoia but is walking milieu. Encouraged to go to at least 1 group like activity group like activity group where she doesn't have to talk as may aid working/processing memory to return more rapidly. Continues to struggle with remote memory and still can not remember an other details regarding history and where she's from, who to contact for her to get her home other than those already supplied. Continues to have internal preoccupation and thought blocking. Appears less paranoid and anxious though on IMHU. MANAGEMENT PLAN: continue plan and reaching out to outpatient provider to aid in pt returning to home in [place] Medications: risperdal 2mg bid risperdal consta 37.5mg 10/11/18 trazodone 50mg qhs prn insomnia TIME SPENT: 30 minutes. Vital Signs Vital Signs Date Time Temp Pulse Resp B/P (MAP) Pulse Ox O2 Delivery O2 Flow Rate FiO2 10/13/18 07:04 97.3 89 16 120/67 (84) Current Medications Current Medications Acetaminophen (Tylenol Tab) 650 mg Q6HP PRN PO HEADACHE or DISCOMFORT; Start 10/11/18 at 15:15 Al Hydrox/Mg Hydrox/Simethicone (Mylanta) 30 ml Q4HP PRN PO HEARTBURN/INDIGESTION; Start 10/11/18 at 15:15 Magnesium Hydroxide (Milk Of Magnesia) 30 ml DAILYPRN PRN PO CONSTIPATION; Start 10/11/18 at 15:15 Risperidone (RisperDAL) 1 mg BID PO Last administered on 10/13/18at 09:23; Start 10/12/18 at 21:00 Risperidone (RisperDAL) 3 mg BID PO Last administered on 10/11/18at 21:03; Start 10/11/18 at 21:00; Stop 10/12/18 at 10:43; Status DC Trazodone HCl (Desyrel) 50 mg QHSP PRN PO INSOMNIA; Start 10/11/18 at 15:15 Allergies Coded Allergies: Sulfa (Sulfonamide Antibiotics) (Verified Allergy, Unknown, 10/08/18) JERED RAVI DO Oct 13, 2018 12:08 pm
--- NOTE | 2018-10-13 16:14 | IPNPDOC ---
Date Seen The patient was seen on 10/13/18. Progress Note SUBJECTIVE: No interval changes overnight. OBJECTIVE PHYSICAL EXAMINATION: VITAL SIGNS: Please see below. GENERAL: no acute distress CARDIOVASCULAR: RRR, no m/r/g RESPIRATORY: CTAB ABDOMINAL: soft, nontender NEUROLOGICAL: no focal deficits PSYCHOLOGICAL: guarded, but answers questions appropriately LABORATORY DATA, IMAGING STUDIES, MICROBIOLOGY: Please see below. Echocardiogram: none DVT prophylaxis ordered?: none ASSESSMENT AND PLAN: This is a 52 YO F with history of Schizophrenia and stable Graves disease who was admitted to [facility] after medical clearance for psychosis of unknown etiology PROBLEMS: 1. Schizophrenia: -Continue treatment with Risperidone and Trazodone, as per psychiatry 2. Hx of Graves disease: -Stable. May benefit from outpatient workup 3. Hx of elevated ammonia: -Stable DISPOSITION: pending [facility] hospitalization and treatment. VS, I&O, 24H, Fishbone Vital Signs/I&O Vital Signs Date Time Temp Pulse Resp B/P (MAP) Pulse Ox O2 Delivery O2 Flow Rate FiO2 10/13/18 07:04 97.3 89 16 120/67 (84) GME ATTESTATION GME ATTESTATION My faculty preceptor for this patient encounter was physically present during the encounter and was fully available. All aspects of the patient interview, examination, medical decision making process, and medical care plan development were reviewed and approved by the faculty preceptor. The faculty preceptor is aware and concurs with the plan as stated in the body of this note and will attest to such by his/her cosignature. LEENA GOMEZ MD Oct 13, 2018 16:14
[2018-10-13 18:00] VITALS: BP 115/79
[2018-10-14 07:14] VITALS: BP 146/76
[2018-10-14] MEDS: risperiDONE 1 MG TAB PO SCH (08:59)
--- NOTE | 2018-10-14 10:27 | MHIPNPDOC ---
[facility] Progress Note Progress Note DATE OF SERVICE: 10/14/18 HISTORY: Patient is a 52 -year-old , female, who was seen on consult from medicine prior admission and per consult note: Per medical admit note: "Pt is a 52 YO F with unknown past medical history and past psychiatric history who was found naked and nonverbal walking along [address]. She was saying things that included "Anthony is " and leads found her to be fearful, wide-eyed, and paranoid. She was also agitated and restless. She demonstrated disorientation and confusion as well as difficulty concentrating. She is reportedly from [facility] and it is unknown how she found her way to [place]. She denies any recent drug use. The ED at [facility] was able to find the name of a hospital where she had been previously treated in [place] and found that she has Graves' disease and unknown psychiatric history for which she takes trazodone daily. She had an unremarkable CT head, but slightly elevated ammonia level at 41. Her CPK level was also found to be 638. [facility] gave the patient 1 mg of Ativan and Narcan, but it is unclear whether they gave her lactulose. She was brought to [facility] for further medical management and psychiatry intervention. On exam, she is not answering any questions appropriately." Per psych initial consult note: "Pt seen with sitter present. Sitter in place as pt has attempted to elope multiple times since admitted. Pt pacing room when seen and states she'd like to go. Asked pt to sit while we talked and did for a second then stood up with slightly defensive body language (arms across chest) and shortly after resumed pacing. States she's here due to being naked, "walking" on the side of the road due to unknown reason and denies she thinks there's anything bizarre about that behavior. States she was looking for her car but when asked if she knew where it was unable to answer. Asked her to tell me about herself and didn't give any answers. Asked about her psychiatric history and states she's been diagnosed with anxiety before and has taken trazodone. Asked further about any other diagnosis and states "schizophrenia but that was miss diagnosis" but won't give other diagnosis. Attempted to complete MMSE and pt only oriented to self and that she in a hospital, unable to answer day, month, or year. Asked pt to name objects in room and unable to name TV and will only state "I know what it is."" Per follow-up consult note 10/11/18: "Pt seen with sitter present at first resting then woke up. Continues to appear preoccupied internally with thought blocking, poor memory, improving paranoia. Denies hallucinations. 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 Still can't remember where her car is. States she's doing well and hopes to go home soon. Took risperdal consta but refused oral risperdal this am. Spoke with SW who is attempting to reach pts family with no luck. Can continue search and d/c planning on [facility] with transfer to unit andd more routine psychiatric care. Carloz es SI/HI. Pt no longer pacing, resting peacefully, and walking around her unit in am with staff." VITAL SIGNS: See below. NEW TEST RESULTS: order cbc and cmp due to pt not eating and drinking. CURRENT MEDICATIONS: See below. MENTAL STATUS EXAMINATION: General Appearance: disheveled, appears stated age, hospital scubs/clothing, ketogenic breath Build: overweight Demeanor: withdrawn, preoccupied, guarded Eye Contact: fair Activity: slowed, anxious Behavior: cooperative, withdrawn Speech: low in volume, non-spontaneous, impoverished Mood: euthymic, very anxious Mood "I need to get out of here... I have somewhere I need to be" Affect: constricted, flat, congruent, anxious, disorganized Thought Process: concrete, blocked, slow Thought Content (Delusions): denies SI, HI, AVH (appears preoccupied by internal stimuli), paranoia, other (very internally preoccupied) Thought Content (Other): guarded, internal-stimuli, appears paranoid, unable to elaborate Thought Content (Aggressive): none reported Perception (Hallucinations): auditory (appears preoccupied by internal stimuli) Perception (Other): none reported Cognition (Impairment of): orientation, memory, attention/concentration, ability to abstract Cognition(Intelligence Est.): borderline Oriented: Awake, Alert (oriented to self and hospital only) Insight: improving Judgment: Improving Psychosis: Abstract Thinking, Psychotic Perceptions DIAGNOSES: Schizophrenia - chronic, disorganized type hx bipolar d/o (per [facility] outpatient notes) r/o schizoaffective d/o r/o dissociative amnesia episode ASSESSMENT:Per staff, is compliant on meds but hasn't been eating. She is seen frequently pacing halls appearing lost and responding to internal stimuli. Told [facility] today that she had to leave b/c she had somewhere she needed to be but did n't state what. Continues to come across as paranoid. Told me today that she left her car at a rest stop but doesn't know where exactly. Pt appears to have decompensated slightly since risperidone decreased from 3mg bid and will increase to 2mg bid today as was doing better at that dose previous on medical floor. Appears to still have though blocking and internal preoccupation with only limited ability to provide history of what happened in between 09/23/18 to now other than she started driving to [facility] and stopped the car, started walking, took her clothes off, and police picked her up at brought her here. Unable to state why stopped car, why she took her clothes off, why she was driving to [facility] as if she has possibly experienced a dissociative amnesia episode with only an ability to supply vague info possibly related to traumatic event at home prior to leaving or while on road to [facility]. Will increase risperidone 2mg bid as appeared to be doing better at that dose. Pt not attending groups secondary par anoia but is walking milieu. Encouraged to go to at least 1 group like activity group like activity group where she doesn't have to talk as may aid working/processing memory to return more rapidly. Continues to struggle with remote memory and still can not remember an other details regarding history and where she's from, who to contact for her to get her home other than those sandra bhat supplied. Continues to have internal preoccupation and thought blocking. Appears less paranoid and anxious though on IMHU. MANAGEMENT PLAN: continue plan and reaching out to outpatient provider to aid in pt returning to home in [place]. Order cbc and cmp due to pt not eating and drinking. Medications: risperdal 2mg bid risperdal consta 37.5mg 10/11/18 trazodone 50mg qhs prn insomnia TIME SPENT: 30 minutes. Vital Signs Vital Signs Date Time Temp Pulse Resp B/P (MAP) Pulse Ox O2 Delivery O2 Flow Rate FiO2 10/14/18 07:14 97.9 77 14 146/76 (99) Current Medications Current Medications Acetaminophen (Tylenol Tab) 650 mg Q6HP PRN PO HEADACHE or DISCOMFORT; Start 10/11/18 at 15:15 Al Hydrox/Mg Hydrox/Simethicone (Mylanta) 30 ml Q4HP PRN PO HEARTBURN/INDIGESTION; Start 10/11/18 at 15:15 Magnesium Hydroxide (Milk Of Magnesia) 30 ml DAILYPRN PRN PO CONSTIPATION; Start 10/11/18 at 15:15 Risperidone (RisperDAL) 1 mg BID PO Last administered on 10/14/18at 08:59; Start 10/12/18 at 21:00 Risperidone (RisperDAL) 3 mg BID PO Last administered on 10/11/18at 21:03; Start 10/11/18 at 21:00; Stop 10/12/18 at 10:43; Status DC Trazodone HCl (Desyrel) 50 mg QHSP PRN PO INSOMNIA; Start 10/11/18 at 15:15 Allergies Coded Allergies: Sulfa (Sulfonamide Antibiotics) (Verified Allergy, Unknown, 10/08/18) JERED RAVI DO Oct 14, 2018 10:27 am
[2018-10-14] MEDS ORDERED: risperiDONE 1 MG TAB PO ONE (11:00)
[2018-10-14 13:16] LABS: BASO # 0.1 10^3/uL (0.0-0.2); BASO % 0.6 % (0.0-1.0); EOS % 0.3 % (0.0-3.0); HEMATOCRIT 43.5 % (36.0-47.0); HEMOGLOBIN 14.7 g/dl (12.0-15.5); LYMPH # 1.4 10^3/uL (1.5-4.5); LYMPH % 18.3 % (24.0-44.0); MEAN CORPUSCULAR HEMOGLOBIN 29.5 pg (27.0-33.0); MEAN CORPUSCULAR HGB CONC 33.8 g/dl (32.0-36.5); MEAN CORPUSCULAR VOLUME 87.2 fl (80.0-96.0); MONO # 0.5 10^3/uL (0.0-0.8); MONO % 5.7 % (0.0-5.0); NEUTROPHILS # 5.9 10^3/uL (1.8-7.7); NEUTROPHILS % 74.8 % (36.0-66.0); PLATELET COUNT, AUTOMATED 327 10^3/uL (150-450); RED BLOOD COUNT 4.99 10^6/uL (4.00-5.40); WHITE BLOOD COUNT 7.9 10^3/uL (4.0-10.0)
[2018-10-14 13:47] LABS: ALBUMIN 4.5 GM/DL (3.2-5.2); ALT/SGPT 35 U/L (12-78); BILIRUBIN,TOTAL 0.6 MG/DL (0.2-1.0); BLOOD UREA NITROGEN 13 MG/DL (7-18); CALCIUM LEVEL 9.4 MG/DL (8.5-10.1); CARBON DIOXIDE LEVEL 25 MEQ/L (21-32); CHLORIDE LEVEL 103 MEQ/L (98-107); CREATININE FOR GFR 0.83 MG/DL (0.55-1.30); GLOMERULAR FILTRATION RATE > 60.0 (>51); GLUCOSE, FASTING 138 MG/DL (70-100); POTASSIUM SERUM 3.4 MEQ/L (3.5-5.1); SODIUM LEVEL 138 MEQ/L (136-145); TOTAL PROTEIN 7.5 GM/DL (6.4-8.2)
--- NOTE | 2018-10-14 16:00 | IPNPDOC ---
Date Seen The patient was seen on 10/14/18. Progress Note SUBJECTIVE: No interval changes overnight. OBJECTIVE PHYSICAL EXAMINATION: VITAL SIGNS: Please see below. GENERAL: no acute distress CARDIOVASCULAR: RRR, no m/r/g RESPIRATORY: CTAB ABDOMINAL: soft, nontender NEUROLOGICAL: no focal deficits PSYCHOLOGICAL: guarded, but answers questions appropriately LABORATORY DATA, IMAGING STUDIES, MICROBIOLOGY: Please see below. Echocardiogram: none DVT prophylaxis ordered?: none ASSESSMENT AND PLAN: This is a 52 YO F with history of Schizophrenia and stable Graves disease who was admitted to [facility] after medical clearance for psychosis of unknown etiology PROBLEMS: 1. Schizophrenia: -Continue treatment with Risperidone and Trazodone, as per psychiatry 2. Hx of Graves disease: -Stable. May benefit from outpatient workup 3. Hx of elevated ammonia: -Stable DISPOSITION: pending [facility] hospitalization and treatment. VS, I&O, 24H, Fishbone Vital Signs/I&O Vital Signs Date Time Temp Pulse Resp B/P (MAP) Pulse Ox O2 Delivery O2 Flow Rate FiO2 10/14/18 07:14 97.9 77 14 146/76 (99) Laboratory Data 24H LABS Laboratory Tests 2 10/14/18 13:01: Immature Granulocyte % (Auto) 0.3, White Blood Count 7.9, Red Blood Count 4.99, Hemoglobin 14.7, Hematocrit 43.5, Mean Corpuscular Volume 87.2, Mean Corpuscular Hemoglobin 29.5, Mean Corpuscular Hemoglobin Concent 33.8, Red Cell Distribution Width 12.7, Platelet Count 327, Neutrophils (%) (Auto) 74.8H, Lymphocytes (%) (Auto) 18.3L, Monocytes (%) (Auto) 5.7H, Eosinophils (%) (Auto) 0.3, Basophils (%) (Auto) 0.6, Neutrophils # (Auto) 5.9, Lymphocytes # (Auto) 1.4L, Monocytes # (Auto) 0.5, Eosinophils # (Auto) 0.0, Basophils # (Auto) 0.1, Nucleated Red Blood Cells % (auto) 0.0, Anion Gap 10, Glomerular Filtration Rate > 60.0, Blood Urea Nitrogen 13, Creatinine 0.83, Sodium Level 138, Potassium Level 3.4L, Chloride Level 103, Carbon Dioxide Level 25, Calcium Level 9.4, Aspartate Amino Transf (AST/SGOT) 23, Alanine Aminotransferase (ALT/SGPT) 35, Alkaline Phosphatase 81, Total Bilirubin 0.6, Total Protein 7.5, Albumin 4.5, Albumin/Globulin Ratio 1.50 CBC/BMP Laboratory Tests 10/14/18 13:01 Red Blood Count 4.99, Mean Corpuscular Volume 87.2, Mean Corpuscular Hemoglobin 29.5, Mean Corpuscular Hemoglobin Concent 33.8, Red Cell Distribution Width 12.7, Neutrophils (%) (Auto) 74.8 H, Lymphocytes (%) (Auto) 18.3 L, Monocytes (%) (Auto) 5.7 H, Eosinophils (%) (Auto) 0.3, Basophils (%) (Auto) 0.6, Neutrophils # (Auto) 5.9, Lymphocytes # (Auto) 1.4 L, Monocytes # (Auto) 0.5, Eosinophils # (Auto) 0.0, Basophils # (Auto) 0.1, Calcium Level 9.4, Aspartate Amino Transf (AST/SGOT) 23, Alanine Aminotransferase (ALT/SGPT) 35, Alkaline Phosphatase 81, Total Bilirubin 0.6, Total Protein 7.5, Albumin 4.5 GME ATTESTATION GME ATTESTATION My faculty preceptor for this patient encounter was physically present during the encounter and was fully available. All aspects of the patient interview, examination, medical decision making process, and medical care plan development were reviewed and approved by the faculty preceptor. The faculty preceptor is aware and concurs with the plan as stated in the body of this note and will attest to such by his/her cosignature. LEENA GOMEZ MD Oct 14, 2018 16:00
[2018-10-14 18:11] VITALS: BP 144/69
[2018-10-14] MEDS: risperiDONE 2 MG TAB PO SCH (20:44)
[2018-10-15 07:00] VITALS: BP 149/86
[2018-10-15] MEDS: risperiDONE 2 MG TAB PO SCH ×2 (08:59→21:00)
[2018-10-15] MEDS ORDERED: POTASSIUM CHLORIDE 10 MEQ SR TABLET PO ONE (09:00)
--- NOTE | 2018-10-15 09:56 | MHIPNPDOC ---
[facility] Progress Note Progress Note DATE OF SERVICE: 10/15/18 HISTORY: Patient is a 52 -year-old , female, who was seen on consult from medicine prior admission and per consult note: Per medical admit note: "Pt is a 52 YO F with unknown past medical history and past psychiatric history who was found naked and nonverbal walking [place] [address]. She was saying things that included "Anthony is " and leads found her to be fearful, wide-eyed, and paranoid. She was also agitated and restless. She demonstrated disorientation and confusion as well as difficulty concentrating. She is reportedly from [facility] and it is unknown how she found her way to [place]. She denies any recent drug use. The ED at [facility] was able to find the name of a hospital where she had been previously treated in [place] and found that she has Graves' disease and unknown psychiatric history for which she takes trazodone daily. She had an unremarkable CT head, but slightly elevated ammonia level at 41. Her CPK level was also found to be 638. [facility] gave the patient 1 mg of Ativan and Narcan, but it is unclear whether they gave her lactulose. She was brought to [facility] for further medical management and psychiatry intervention. On exam, she is not answering any questions appropriately." Per psych initial consult note: "Pt seen with sitter present. Sitter in place as pt has attempted to elope multiple times since admitted. Pt pacing room when seen and states she'd like to go. Asked pt to sit while we talked and did for a second then stood up with slightly defensive body language (arms across chest) and shortly after resumed pacing. States she's here due to being naked, "walking" on the side of the road due to unknown reason and denies she thinks there's anything bizarre about that behavior. States she was looking for her ca r but when asked if she knew where it was unable to answer. Asked her to tell me about herself and didn't give any answers. Asked about her psychiatric history and states she's been diagnosed with anxiety before and has taken trazodone. Asked further about any other diagnosis and states "schizophrenia but that was miss diagnosis" but won't give other diagnosis. Attempted to complete MMSE and pt only oriented to self and that she in a hospital, unable to answer day, month, or year. Asked pt to name objects in room and unable to name TV and will only state "I know what it is."" Per follow-up consult note 10/11/18: "Pt seen with sitter present at first resting then woke up. Continues to appear preoccupied internally with thought blocking, poor memory, improving paranoia. Denies hallucinations. Able to remember "[facility]," and continues to state she's from [place] and lives in an appt [facility] when "Hai" is the supervisor coin machine. Still can't remember where her car is. States she's doing well and hopes to go home soon. Took risperdal consta but refused oral risperdal this am. Spoke with SW who is attempting to reach pts family with no luck. Can continue search and d/c planning on [facility] with transfer to unit andd more routine psychiatric care. Carloz es SI/HI. Pt no longer pacing, resting peacefully, and walking around her unit in am with staff." VITAL SIGNS: See below. NEW TEST RESULTS: order cbc and cmp wnl CURRENT MEDICATIONS: See below. MENTAL STATUS EXAMINATION: General Appearance: disheveled, appears stated age, hospital scubs/clothing, ketogenic breath Build: overweight Demeanor: withdrawn, preoccupied, guarded Eye Contact: fair Activity: slowed, anxious Behavior: cooperative, withdrawn Speech: low in volume, non-spontaneous, impoverished Mood: euthymic, very anxious Mood "I ate" (ate only a bit or 2 of eggs and nothing else, refused to eat anything else). Affect: constricted, flat, congruent, anxious, disorganized Thought Process: concrete, blocked, slow Thought Content (Delusions): denies SI, HI, AVH (appears preoccupied by internal stimuli), paranoia, other (very internally preoccupied) Thought Content (Other): guarded, internal-stimuli, appears paranoid, unable to elaborate Thought Content (Aggressive): none reported Perception (Hallucinations): auditory (appears preoccupied by internal stimuli) Perception (Other): none reported Cognition (Impairment of): orientation, memory, attention/concentration, ability to abstract Cognition(Intelligence Est.): borderline Oriented: Awake, Alert (oriented to self and hospital only) Insight: very poor Judgment: very poor Psychosis: Abstract Thinking, Psychotic Perceptions DIAGNOSES: Schizophrenia - chronic, disorganized type hx bipolar d/o (per [facility] outpatient notes) r/o schizoaffective d/o r/o dissociative amnesia episode ASSESSMENT:Pt seen and doesn't appear to have eaten much this am and refuses to eat more. Did have to be sat with staff yesterday after lunch chosen for her and brought to day room to eating practically require force feeding to eat some of her chicken salad (that was all and drink some water). Will see if order can be place for sitter for 1 hour three times a day to sit with pt and encourage eating as was eating better when sitter present on medical floor. Will put in order that all meals be in day room. Will add seroquel 100mg qhs for appetite improvement. Will also aid paranoia and psychosis. She is seen frequently pacing halls appearing lost and responding to internal stimuli. Is tolerating risperidone well but may need to be increased with tolerance. Will see how pt responds to seroquel first. Labs within normal limits and pt not dehydrated. Appears to still have though blocking and internal preoccupation with only limited ability to provide history of what happened in between 09/23/18 to now other than she started driving to [facility] and stopped the car, started walking, took her clothes off, and police picked her up at brought her here. Unable to state why stopped car, why she took her clothes off, why she was driving to [facility] as if she has possibly experienced a dissociative amnesia episode with only an ability to supply vague info possibly related to traumatic event at home prior to leaving or while on road to [facility]. Will increase risperidone 2mg bid as appeared to be doing better at that dose. Pt not attending groups secondary paranoia but is walking milieu. Encouraged to go to at least 1 group like activity group like activity group where she doesn't have to talk as may aid working/processing memory to return more rapidly. Continues to struggle with remote memory and still can not remember an other details regarding history and where she's from, who to contact for her to get her home other than those already supplied. Continues to have internal preoccupation and thought blocking. MANAGEMENT PLAN: continue plan and reaching out to outpatient provider to aid in pt returning to home in [place]. Add seroquel 100mg qhs for appetite and psychosis. Pt to have sitter tid for 1 hour for meals to encourage eating and drinking in day room. Medications: risperdal 2mg bid risperdal consta 37.5mg 10/11/18 trazodone 50mg qhs prn insomnia seroquel 100mg qhs TIME SPENT: 30 minutes. Vital Signs Vital Signs Date Time Temp Pulse Resp B/P (MAP) Pulse Ox O2 Delivery O2 Flow Rate FiO2 10/15/18 07:00 96.7 95 16 149/86 (107) Laboratory Data 24H Labs Laboratory Tests 2 10/14/18 13:01: Immature Granulocyte % (Auto) 0.3, White Blood Count 7.9, Red Blood Count 4.99, Hemoglobin 14.7, Hematocrit 43.5, Mean Corpuscular Volume 87.2, Mean Corpuscular Hemoglobin 29.5, Mean Corpuscular Hemoglobin Concent 33.8, Red Cell Distribution Width 12.7, Platelet Count 327, Neutrophils (%) (Auto) 74.8H, Lymphocytes (%) (Auto) 18.3L, Monocytes (%) (Auto) 5.7H, Eosinophils (%) (Auto) 0.3, Basophils (%) (Auto) 0.6, Neutrophils # (Auto) 5.9, Lymphocytes # (Auto) 1.4L, Monocytes # (Auto) 0.5, Eosinophils # (Auto) 0.0, Basophils # (Auto) 0.1, Nucleated Red Blood Cells % (auto) 0.0, Anion Gap 10, Glomerular Filtration Rate > 60.0, Blood Urea Nitrogen 13, Creatinine 0.83, Sodium Level 138, Potassium Level 3.4L, Chloride Level 103, Carbon Dioxide Level 25, Calcium Level 9.4, Aspartate Amino Transf (AST/SGOT) 23, Alanine Aminotransferase (ALT/SGPT) 35, Alkaline Phosphatase 81, Total Bilirubin 0.6, Total Protein 7.5, Albumin 4.5, Magnesium Level 2.0, Albumin/Globulin Ratio 1.50 CBC/BMP Laboratory Tests 10/14/18 13:01 Red Blood Count 4.99, Mean Corpuscular Volume 87.2, Mean Corpuscular Hemoglobin 29.5, Mean Corpuscular Hemoglobin Concent 33.8, Red Cell Distribution Width 12.7, Neutrophils (%) (Auto) 74.8 H, Lymphocytes (%) (Auto) 18.3 L, Monocytes (%) (Auto) 5.7 H, Eosinophils (%) (Auto) 0.3, Basophils (%) (Auto) 0.6, Neutrophils # (Auto) 5.9, Lymphocytes # (Auto) 1.4 L, Monocytes # (Auto) 0.5, Eosinophils # (Auto) 0.0, Basophils # (Auto) 0.1, Calcium Level 9.4, Aspartate Amino Transf (AST/SGOT) 23, Alanine Aminotransferase (ALT/SGPT) 35, Alkaline Phosphatase 81, Total Bilirubin 0.6, Total Protein 7.5, Albumin 4.5 Current Medications Current Medications Acetaminophen (Tylenol Tab) 650 mg Q6HP PRN PO HEADACHE or DISCOMFORT; Start 10/11/18 at 15:15 Al Hydrox/Mg Hydrox/Simethicone (Mylanta) 30 ml Q4HP PRN PO HEARTBURN/INDIGESTION; Start 10/11/18 at 15:15 Magnesium Hydroxide (Milk Of Magnesia) 30 ml DAILYPRN PRN PO CONSTIPATION; Start 10/11/18 at 15:15 Risperidone (RisperDAL) 1 mg BID PO Last administered on 10/14/18at 08:59; Start 10/12/18 at 21:00; Stop 10/14/18 at 10:28; Status DC Risperidone (RisperDAL) 2 mg BID PO ; Start 10/14/18 at 21:00 Risperidone (RisperDAL) 3 mg BID PO Last administered on 10/11/18at 21:03; Start 10/11/18 at 21:00; Stop 10/12/18 at 10:43; Status DC Trazodone HCl (Desyrel) 50 mg QHSP PRN PO INSOMNIA; Start 10/11/18 at 15:15 Allergies Coded Allergies: Sulfa (Sulfonamide Antibiotics) (Verified Allergy, Unknown, 10/08/18) JERED RAVI DO Oct 15, 2018 9:56 am
--- NOTE | 2018-10-15 16:25 | IPNPDOC ---
Date Seen The patient was seen on 10/15/18. Progress Note SUBJECTIVE: Patient refuses to participate in therapy and does not communicate with staff at times. She does not wish to eat. Often refuses to take medications as prescribed. OBJECTIVE PHYSICAL EXAMINATION: VITAL SIGNS: Please see below. GENERAL: no acute distress CARDIOVASCULAR: RRR, no m/r/g RESPIRATORY: CTAB ABDOMINAL: soft, nontender NEUROLOGICAL: no focal deficits PSYCHOLOGICAL: guarded, but answers questions appropriately LABORATORY DATA, IMAGING STUDIES, MICROBIOLOGY: Please see below. Echocardiogram: none DVT prophylaxis ordered?: none ASSESSMENT AND PLAN: This is a 52 YO F with history of Schizophrenia, Bipolar disorder and stable Graves disease who was admitted to [facility] after medical clearance for psychosis. PROBLEMS: 1. Schizophrenia: -Continue treatment with Risperidone and Trazodone, as per psychiatry -Patient has been prescribed Seroquel for night time sleep/appetite 2. Hypokalemia: -K found to be 3.4. Potassium supplementation prescribed but patient refused. 3. Hx of Graves disease: -Stable. May benefit from outpatient workup 4. Hx of elevated ammonia: -Stable DISPOSITION: pending [facility] hospitalization and treatment. VS, I&O, 24H, Fishbone Vital Signs/I&O Vital Signs Date Time Temp Pulse Resp B/P (MAP) Pulse Ox O2 Delivery O2 Flow Rate FiO2 10/15/18 07:00 96.7 95 16 149/86 (107) GME ATTESTATION GME ATTESTATION My faculty preceptor for this patient encounter was physically present during the encounter and was fully available. All aspects of the patient interview, examination, medical decision making process, and medical care plan development were reviewed and approved by the faculty preceptor. The faculty preceptor is aware and concurs with the plan as stated in the body of this note and will attest to such by his/her cosignature. LEENA GOMEZ MD Oct 15, 2018 16:25
[2018-10-15 18:10] VITALS: BP 137/87
[2018-10-15] MEDS: QUEtiapine FUMARATE 100 MG TAB PO SCH (21:00)
[2018-10-16] MEDS: risperiDONE 2 MG TAB PO SCH ×2 (09:07→21:43)
[2018-10-16] MEDS ORDERED: POTASSIUM CHLORIDE 10 MEQ SR TABLET PO ONE (10:45)
--- NOTE | 2018-10-16 11:36 | IPNPDOC ---
Date Seen The patient was seen on 10/16/18. Progress Note SUBJECTIVE: Per nursing, patient continues to act paranoid, eat only some of her meals, and refuses to participate in therapy. She has refused her medications as well. OBJECTIVE PHYSICAL EXAMINATION: VITAL SIGNS: Please see below. GENERAL: no acute distress CARDIOVASCULAR: RRR, no m/r/g RESPIRATORY: CTAB ABDOMINAL: soft, nontender NEUROLOGICAL: no focal deficits PSYCHOLOGICAL: guarded, but answers questions appropriately LABORATORY DATA, IMAGING STUDIES, MICROBIOLOGY: Please see below. Echocardiogram: none DVT prophylaxis ordered?: none ASSESSMENT AND PLAN: This is a 52 YO F with history of Schizophrenia, Bipolar disorder and stable Graves disease who was admitted to [facility] after medical clearance for psychosis. PROBLEMS: 1. Schizophrenia: -Continue treatment with Risperidone and Trazodone, as per psychiatry -Patient has been prescribed Seroquel for night time sleep/appetite 2. Hypokalemia: -K down to 3.0. Potassium supplementation prescribed but patient refused. 3. Hx of Graves disease: -Stable. May benefit from outpatient workup 4. Hx of elevated ammonia: -Stable DISPOSITION: pending [facility] hospitalization and treatment. VS, I&O, 24H, Fishbone Vital Signs/I&O Vital Signs Date Time Temp Pulse Resp B/P (MAP) Pulse Ox O2 Delivery O2 Flow Rate FiO2 10/15/18 18:10 98.3 114 18 137/87 (104) Laboratory Data CBC/BMP Laboratory Tests 10/16/18 10:02 GME ATTESTATION GME ATTESTATION My faculty preceptor for this patient encounter was physically present during the encounter and was fully available. All aspects of the patient interview, examination, medical decision making process, and medical care plan development were reviewed and approved by the faculty preceptor. The faculty preceptor is aware and concurs with the plan as stated in the body of this note and will attest to such by his/her cosignature. LEENA GOMEZ MD Oct 16, 2018 11:36
[2018-10-16 18:00] VITALS: BP 110/72
[2018-10-16] MEDS: QUEtiapine FUMARATE 100 MG TAB PO SCH (21:43)
[2018-10-17] MEDS ORDERED: LORazepam 1 MG TAB PO PRN (03:30)
[2018-10-17 06:42] VITALS: BP 118/63
[2018-10-17 07:41] LABS: HEMATOCRIT 38.7 % (36.0-47.0); HEMOGLOBIN 13.1 g/dl (12.0-15.5); MEAN CORPUSCULAR HEMOGLOBIN 29.2 pg (27.0-33.0); MEAN CORPUSCULAR HGB CONC 33.9 g/dl (32.0-36.5); MEAN CORPUSCULAR VOLUME 86.4 fl (80.0-96.0); PLATELET COUNT, AUTOMATED 251 10^3/uL (150-450); RED BLOOD COUNT 4.48 10^6/uL (4.00-5.40); WHITE BLOOD COUNT 4.6 10^3/uL (4.0-10.0)
[2018-10-17 07:48] LABS: ALBUMIN 3.8 GM/DL (3.2-5.2); ALT/SGPT 33 U/L (12-78); BILIRUBIN,TOTAL 0.7 MG/DL (0.2-1.0); BLOOD UREA NITROGEN 10 MG/DL (7-18); CALCIUM LEVEL 8.9 MG/DL (8.5-10.1); CARBON DIOXIDE LEVEL 26 MEQ/L (21-32); CHLORIDE LEVEL 107 MEQ/L (98-107); CREATININE FOR GFR 0.58 MG/DL (0.55-1.30); GLOMERULAR FILTRATION RATE > 60.0 (>51); GLUCOSE, FASTING 118 MG/DL (70-100); POTASSIUM SERUM 3.5 MEQ/L (3.5-5.1); SODIUM LEVEL 142 MEQ/L (136-145); TOTAL PROTEIN 6.4 GM/DL (6.4-8.2)
[2018-10-17] MEDS: risperiDONE 2 MG TAB PO SCH ×2 (09:25→20:45)
[2018-10-17] MEDS ORDERED: traZODone 50 MG TAB PO PRN (11:15)
--- NOTE | 2018-10-17 12:48 | IPNPDOC ---
Text Note Date of Service The patient was seen on 10/17/18. NOTE SUBJECTIVE: Patient seen and examined at bedside. Flat affect, not very talka tive but answers question, mostly with gestures. OBJECTIVE: VITAL SIGNS: Please see below. GENERAL: no acute distress CARDIOVASCULAR: RRR, no m/r/g RESPIRATORY: CTAB ABDOMINAL: soft, nontender NEUROLOGICAL: no focal deficits PSYCHOLOGICAL: guarded, but answers questions appropriately LABORATORY DATA, IMAGING STUDIES, MICROBIOLOGY: Please see below. Echocardiogram: none DVT prophylaxis ordered?: none ASSESSMENT AND PLAN: This is a 52 YO F with history of Schizophrenia, Bipolar disorder and stable Graves disease who was admitted to [facility] after medical clearance for psychosis. PROBLEMS: 1. Schizophrenia: -Continue treatment with Risperidone and Trazodone, as per psychiatry -Patient has been prescribed Seroquel for night time sleep/appetite 2. Hypokalemia: resolved 3. Hx of Graves disease: -Stable. May benefit from outpatient workup 4. Hx of elevated ammonia: -Stable DISPOSITION: pending [facility] hospitalization and treatment. VS,Fishbone, I+O VS, Fishbone, I+O Laboratory Tests 10/17/18 07:08 Red Blood Count 4.48, Mean Corpuscular Volume 86.4, Mean Corpuscular Hemoglobin 29.2, Mean Corpuscular Hemoglobin Concent 33.9, Red Cell Distribution Width 12.7, Calcium Level 8.9, Aspartate Amino Transf (AST/SGOT) 29, Alanine Aminotransferase (ALT/SGPT) 33, Alkaline Phosphatase 73, Total Bilirubin 0.7, Total Protein 6.4, Albumin 3.8 Vital Signs Date Time Temp Pulse Resp B/P (MAP) Pulse Ox O2 Delivery O2 Flow Rate FiO2 10/17/18 06:42 98.7 78 16 118/63 (81) JESSICA GALVAN MD Oct 17, 2018 12:48
[2018-10-17 17:43] VITALS: BP 139/84
[2018-10-17 18:00] VITALS: BP 112/58
[2018-10-17] MEDS: QUEtiapine FUMARATE 100 MG TAB PO SCH (20:45)
[2018-10-18 06:20] VITALS: BP 138/90
[2018-10-18] MEDS: risperiDONE 2 MG TAB PO SCH ×3 (09:00→21:16)
--- NOTE | 2018-10-18 09:58 | MHIPNPDOC ---
[facility] Progress Note Progress Note DATE OF SERVICE: 10/18/18 HISTORY: Patient is a 52 -year-old , female, who was seen on consult from medicine prior admission and per consult note: Per medical admit note: "Pt is a 52 YO F with unknown past medical history and past psychiatric history who was found naked and nonverbal [place] [address]. She was saying things that included "Anthony is " and leads found her to be fearful, wide-eyed, and paranoid. She was also agitated and restless. She demonstrated disorientation and confusion as well as difficulty concentrating. She is reportedly from [facility] and it is unknown how she found her way to [place]. She denies any recent drug use. The ED at [facility] was able to find the name of a hospital where she had been previously treated in [place] and found that she has Graves' disease and unknown psychiatric history for which she takes trazodone daily. She had an unremarkable CT head, but slightly elevated ammonia level at 41. Her CPK level was also found to be 638. [facility] gave the patient 1 mg of Ativan and Narcan, but it is unclear whether they gave her lactulose. She was brought to [facility] for further medical management and psychiatry intervention. On exam, she is not answering any questions appropriately." Per psych initial consult note: "Pt seen with sitter present. Sitter in place as pt has attempted to elope multiple times since admitted. Pt pacing room when seen and states she'd like to go. Asked pt to sit while we talked and did for a second then stood up with slightly defensive body language (arms across chest) and shortly after resumed pacing. States she's here due to being naked, "walking" on the side of the road due to unknown reason and denies she thinks there's anything bizarre about that behavior. States she was looking for her car but when asked if she knew where it was unable to answer. Asked her to tell me about herself and didn't give any answers. Asked about her psychiatric history and states she's been diagnosed with anxiety before and has taken trazodone. Asked further about any other diagnosis and states "schizophrenia but that was miss diagnosis" but won't give other diagnosis. Attempted to complete MMSE and pt only oriented to self and that she in a hospital, unable to answer day, month, or year. Asked pt to name objects in room and unable to name TV and will only state "I know what it is."" Per follow-up consult note 10/11/18: "Pt seen with sitter present at first resting then woke up. Continues to appear preoccupied internally with thought blocking, poor memory, improving paranoia. Denies hallucinations. Able to remember "[facility]," and continues to state she's from [place] and lives in an 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 Still can't remember where her car is. States she's doing well and hopes to go home soon. Took risperdal consta but refused oral risperdal this am. Spoke with SW who is attempting to reach pts family with no luck. Can continue search and d/c planning on [facility] with transfer to unit andd more routine psychiatric care. Carloz es SI/HI. Pt no longer pacing, resting peacefully, and walking around her unit in am with staff." VITAL SIGNS: See below. NEW TEST RESULTS: order cbc and cmp wnl CURRENT MEDICATIONS: See below. MENTAL STATUS EXAMINATION: General Appearance: disheveled, appears stated age, hospital scrubs/clothing, ketogenic breath Build: overweight Demeanor: withdrawn, preoccupied, guarded Eye Contact: fair Activity: slowed, anxious Behavior: cooperative, withdrawn Speech: low in volume, non-spontaneous, impoverished Mood: irritable, very anxious Mood "You don't need to know where my car is" Affect: constricted, irritable, defensive, congruent, anxious, disorganized Thought Process: concrete, blocked, slow Thought Content (Delusions): denies SI, HI, AVH (appears preoccupied by internal stimuli), paranoia, other (very internally preoccupied) Thought Content (Other): guarded, internal-stimuli, appears paranoid, unable to elaborate Thought Content (Aggressive): none reported Perception (Hallucinations): auditory (appears preoccupied by internal stimuli) Perception (Other): none reported Cognition (Impairment of): orientation, memory, attention/concentration, ability to abstract Cognition(Intelligence Est.): borderline Oriented: Awake, Alert (oriented to self and hospital only) Insight: very poor Judgment: very poor Psychosis: Abstract Thinking, Psychotic Perceptions DIAGNOSES: Schizophrenia - chronic, disorganized type hx bipolar d/o (per [facility] outpatient notes) r/o schizoaffective d/o r/o dissociative amnesia episode ASSESSMENT:Pt seen this am and very paranoid. Refused her risperidone this morning stating that it makes her tired during the day and states she's only taking trazodone b/c that's what helps her and was what she was taking at her outpatient clinic (was on risperidone and trazodone per outpatient clinic notes). Finally agreed to take risperdone just at night. Per nursing, is eating slightly better over the weekend although very selective and what she its, will only drink tap water nothing from tray. Pt refusing to shower stating she washes herself in her room. Pt guarded and irritable stating there's nothing wrong with her memory and that she can't remember where her car is b/c she doesn't know this area then that I don't need to know where her car is b/c her outpatient clinic can find it. States she has her mother to talk to although when asked if she's spoken with her mother and how to reach her states that her mother doesn't need to be contacted as her outpatient clinic can do that. Appears to refuse to answer questions due to inability to remember. She is seen frequently pacing halls appearing lost and responding to internal stimuli. Appears to still have though blocking and internal preoccupation with only limited ability to provide history of what happened in between 09/23/18 to now other than she started driving to [employer] and stopped the car, started walking, took her clothes off, and police picked her up at brought her here. Unable to state why stopped car, why she took her clothes off, why she was driving to [place] as if she has possibly experienced a dissociative amnesia episode with only an ability to supply vague info possibly related to traumatic event at home prior to leaving or while on road to [facility]. Will increase risperidone 2mg bid as appeared to be doing better at that dose. Pt not attending groups secondary paranoia but is walking milieu. Encouraged to go to at least 1 group like activity group like activity group where she doesn't have to talk as may aid working/processing memory to return more rapidly. Continues to struggle with remote memory and still can not remember an other details regarding history and where she's from, who to contact for her to get her home other than those already supplied. Continues to have internal preoccupation and thought blocking. MANAGEMENT PLAN: continue plan and reaching out to outpatient provider to aid in pt returning to home in [place]. Pt to have sitter tid for 1 hour for meals to encourage eating and drinking in day room. change risperdal to 2mg qhs Medications: risperdal 2mg qhs risperdal consta 37.5mg 10/11/18 trazodone 50mg qhs prn insomnia seroquel 100mg qhs TIME SPENT: 30 minutes. Vital Signs Vital Signs Date Time Temp Pulse Resp B/P (MAP) Pulse Ox O2 Delivery O2 Flow Rate FiO2 10/18/18 06:20 97.7 80 16 138/90 (106) Current Medications Current Medications Acetaminophen (Tylenol Tab) 650 mg Q6HP PRN PO HEADACHE or DISCOMFORT; Start 10/11/18 at 15:15 Al Hydrox/Mg Hydrox/Simethicone (Mylanta) 30 ml Q4HP PRN PO HEARTBURN/INDIGESTION; Start 10/11/18 at 15:15 Lorazepam (Ativan) 1 mg Q4HP PRN PO ANXIETY; Start 10/17/18 at 03:30; Stop 10/18/18 at 03:30; Status DC Magnesium Hydroxide (Milk Of Magnesia) 30 ml DAILYPRN PRN PO CONSTIPATION; Start 10/11/18 at 15:15 Quetiapine Fumarate (SEROquel) 100 mg QHS PO ; Start 10/15/18 at 21:00 Risperidone (RisperDAL) 1 mg BID PO Last administered on 10/14/18at 08:59; Start 10/12/18 at 21:00; Stop 10/14/18 at 10:28; Status DC Risperidone (RisperDAL) 2 mg BID PO Last administered on 10/17/18at 09:25; Start 10/14/18 at 21:00 Risperidone (RisperDAL) 3 mg BID PO Last administered on 10/11/18at 21:03; Start 10/11/18 at 21:00; Stop 10/12/18 at 10:43; Status DC Trazodone HCl (Desyrel) 50 mg QHSP PRN PO INSOMNIA Last administered on 10/17/18at 03:08; Start 10/11/18 at 15:15; Stop 10/17/18 at 11:14; Status DC Trazodone HCl (Desyrel) 150 mg QHSP PRN PO INSOMNIA; Start 10/17/18 at 11:15 Allergies Coded Allergies: Sulfa (Sulfonamide Antibiotics) (Verified Allergy, Unknown, 10/08/18) JERED RAVI DO Oct 18, 2018 09:58
[2018-10-18 18:13] VITALS: BP 107/59
[2018-10-18] MEDS: QUEtiapine FUMARATE 100 MG TAB PO SCH (21:00)
[2018-10-19 06:12] VITALS: BP 123/58
[2018-10-19] MEDS ORDERED: POTASSIUM CHLORIDE 10 MEQ SR TABLET PO SCH (09:00)
--- NOTE | 2018-10-19 09:47 | MHIPNPDOC ---
[facility] Progress Note Progress Note DATE OF SERVICE: 10/19/18 HISTORY: Patient is a 52 -year-old , female, who was seen on consult from medicine prior admission and per consult note: Per medical admit note: "Pt is a 52 YO F with unknown past medical history and past psychiatric history who was found naked and nonverbal walking [place] [address]. She was saying things that included "Anthony is " and leads found her to be fearful, wide-eyed, and paranoid. She was also agitated and restless. She demonstrated disorientation and confusion as well as difficulty concentrating. She is reportedly from [facility] and it is unknown how she found her way to [place]. She denies any recent drug use. The ED at [facility] was able to find the name of a hospital where she had been previously treated in [place] and found that she has Graves' disease and unknown psychiatric history for which she takes trazodone daily. She had an unremarkable CT head, but slightly elevated ammonia level at 41. Her CPK level was also found to be 638. [facility] gave the patient 1 mg of Ativan and Narcan, but it is unclear whether they gave her lactulose. She was brought to [facility] for further medical management and psychiatry intervention. On exam, she is not answering any questions appropriately." Per psych initial consult note: "Pt seen with sitter present. Sitter in place as pt has attempted to elope multiple times since admitted. Pt pacing room when seen and states she'd like to go. Asked pt to sit while we talked and did for a second then stood up with slightly defensive body language (arms across chest) and shortly after resumed pacing. States she's here due to being naked, "walking" on the side of the road due to unknown reason and denies she thinks there's anything bizarre about that behavior. States she was looking for her car but when asked if she knew where it was unable to answer. Asked her to tell me about herself and didn't give any answers. Asked about her psychiatric history and states she's been diagnosed with anxiety before and has taken trazodone. Asked further about any other diagnosis and states "schizophrenia but that was miss diagnosis" but won't give other diagnosis. Attempted to complete MMSE and pt only oriented to self and that she in a hospital, unable to answer day, month, or year. Asked pt to name objects in room and unable to name TV and will only state "I know what it is."" Per follow-up consult note 10/11/18: "Pt seen with sitter present at first resting then woke up. Continues to appear preoccupied internally with thought blocking, poor memory, improving paranoia. Denies hallucinations. 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 Still can't remember where her car is. States she's doing well and hopes to go home soon. Took risperdal consta but refused oral risperdal this am. Spoke with SW who is attempting to reach pts family with no luck. Can continue search and d/c planning on [facility] with transfer to unit andd more routine psychiatric care. Carloz es SI/HI. Pt no longer pacing, resting peacefully, and walking around her unit in am with staff." VITAL SIGNS: See below. NEW TEST RESULTS: order cbc and cmp wnl CURRENT MEDICATIONS: See below. MENTAL STATUS EXAMINATION: General Appearance: disheveled, appears stated age, hospital scrubs/clothing, ketogenic breath Build: overweight Demeanor: withdrawn, preoccupied, guarded Eye Contact: fair Activity: slowed, anxious Behavior: cooperative, withdrawn Speech: low in volume, non-spontaneous, impoverished Mood: irritable, very anxious Mood "You don't need to know where my car is" Affect: constricted, irritable, defensive, congruent, anxious, disorganized Thought Process: concrete, blocked, slow Thought Content (Delusions): denies SI, HI, AVH (appears preoccupied by internal stimuli), paranoia, other (very internally preoccupied) Thought Content (Other): guarded, internal-stimuli, appears paranoid, unable to elaborate Thought Content (Aggressive): none reported Perception (Hallucinations): auditory (appears preoccupied by internal stimuli) Perception (Other): none reported Cognition (Impairment of): orientation, memory, attention/concentration, ability to abstract Cognition(Intelligence Est.): borderline Oriented: Awake, Alert (oriented to self and hospital only) Insight: very poor Judgment: very poor Psychosis: Abstract Thinking, Psychotic Perceptions DIAGNOSES: Schizophrenia - chronic, disorganized type hx bipolar d/o (per [facility] outpatient notes) r/o schizoaffective d/o r/o dissociative amnesia episode ASSESSMENT:Pt seen this am and very paranoid, pacing room, not talking or answering any questions other than nodding head yes/no. States nods "no" to talking today. Did take risperidone last night but not seroquel. Risperidone doesn't appear very affective for paranoia and lack of tolerance with increases prevents pt ability to try more. Plan to change to invega for psychosis as can give longer acting injectable invega sustenna which may be more beneficial as won't have to take oral possibly. Per nursing, is eating slightly better although very selective in what she eats, will only drink tap water nothing from tray. Pt refusing to shower stating she washes herself in her room and appears to need a shower, hair very greasy. Pt guarded and irritable She is seen frequently pacing halls appearing lost and responding to internal stimuli. Appears to still have though blocking and internal preoccupation with only limited ability to provide history of what happened in between 09/23/18 to now other than she started driving to [facility] and stopped the car, started walking, took her clothes off, and police picked her up at brought her here. Unable to state why stopped car, why she took her clothes off, why she was driving to [facility] as if she has possibly experienced a dissociative amnesia episode with only an ability to supply vague info possibly related to traumatic event at home prior to leaving or while on road to [facility]. Pt not attending groups secondary paranoia but is walking milieu. Encouraged to go to at least 1 group like activity group like activity group where she doesn't have to talk as may aid working/processing memory to return more rapidly. Continues to struggle with remote memory and still can not remember an other details regarding history and where she's from, who to contact for her to get her home other than those already supplied. Continues to have internal preoccupation and thought blocking. MANAGEMENT PLAN: continue plan and reaching out to outpatient provider to aid in pt returning to home in [place]. Pt to have sitter tid for 1 hour for meals to encourage eating and drinking in day room. Invega 3mg x1 then if tolerated give invega sustenna 234mg im today for psychosis, paranoia Medications: risperdal 2mg qhs risperdal consta 37.5mg 10/11/18 trazodone 50mg qhs prn insomnia seroquel 100mg qhs TIME SPENT: 30 minutes. Vital Signs Vital Signs Date Time Temp Pulse Resp B/P (MAP) Pulse Ox O2 Delivery O2 Flow Rate FiO2 10/19/18 06:12 97.4 74 12 123/58 (79) Current Medications Current Medications Acetaminophen (Tylenol Tab) 650 mg Q6HP PRN PO HEADACHE or DISCOMFORT; Start 10/11/18 at 15:15 Al Hydrox/Mg Hydrox/Simethicone (Mylanta) 30 ml Q4HP PRN PO HE ARTBURN/INDIGESTION; Start 10/11/18 at 15:15 Lorazepam (Ativan) 1 mg Q4HP PRN PO ANXIETY; Start 10/17/18 at 03:30; Stop 10/18/18 at 03:30; Status DC Magnesium Hydroxide (Milk Of Magnesia) 30 ml DAILYPRN PRN PO CONSTIPATION; Start 10/11/18 at 15:15 Quetiapine Fumarate (SEROquel) 100 mg QHS PO ; Start 10/15/18 at 21:00 Risperidone (RisperDAL) 1 mg BID PO Last administered on 10/14/18at 08:59; Start 10/12/18 at 21:00; Stop 10/14/18 at 10:28; Status DC Risperidone (RisperDAL) 2 mg BID PO Last administered on 10/17/18at 09:25; Start 10/14/18 at 21:00; Stop 10/18/18 at 09:57; Status DC Risperidone (RisperDAL) 2 mg QHS PO Last administered on 10/18/18at 21:16; Start 10/18/18 at 21:00 Risperidone (RisperDAL) 3 mg BID PO Last administered on 10/11/18at 21:03; S tart 10/11/18 at 21:00; Stop 10/12/18 at 10:43; Status DC Trazodone HCl (Desyrel) 50 mg QHSP PRN PO INSOMNIA Last administered on 10/17/18at 03:08; Start 10/11/18 at 15:15; Stop 4/21/19 at 11:14; Status DC Trazodone HCl (Desyrel) 150 mg QHSP PRN PO INSOMNIA; Start 10/17/18 at 11:15 Allergies Coded Allergies: Sulfa (Sulfonamide Antibiotics) (Verified Allergy, Unknown, 10/08/18) JERED RAVI DO Oct 19, 2018 09:47
[2018-10-19] MEDS ORDERED: PALIPERIDONE 3 MG ER TAB (INVEGA) PO ONE (10:00)
[2018-10-19] MEDS ORDERED: PALIPERIDONE PALMITATE 234MG/1.5ML INJ (INVEGA)(J2426)(FREE PSY INPT ONLY) IM ONE (11:00)
[2018-10-19 18:00] VITALS: BP 116/76
[2018-10-19] MEDS: risperiDONE 2 MG TAB PO SCH (21:00)
[2018-10-19] MEDS: QUEtiapine FUMARATE 100 MG TAB PO SCH (21:00)
[2018-10-20 06:18] VITALS: BP 127/71
--- NOTE | 2018-10-20 10:13 | MHIPNPDOC ---
[facility] Progress Note Progress Note DATE OF SERVICE: 10/20/18 HISTORY: Patient is a 52 -year-old , female, who was seen on consult from medicine prior admission and per consult note: Per medical admit note: "Pt is a 52 YO F with unknown past medical history and past psychiatric history who was found naked and nonverbal walking [place] [address] She was saying things that included "Anthony is " and leads found her to be fearful, wide-eyed, and paranoid. She was also agitated and restless. She demonstrated disorientation and confusion as well as difficulty concentrating. She is reportedly from [facility] and it is unknown how she found her way to [place]. She denies any recent drug use. The ED at [facility] was able to find the name of a hospital where she had been previously treated in [place] and found that she has Graves' disease and unknown psychiatric history for which she takes trazodone daily. She had an unremarkable CT head, but slightly elevated ammonia level at 41. Her CPK level was also found to be 638. [facility] gave the patient 1 mg of Ativan and Narcan, but it is unclear whether they gave her lactulose. She was brought to [facility] for further medical management and psychiatry intervention. On exam, she is not answering any questions appropriately." Per psych initial consult note: "Pt seen with sitter present. Sitter in place as pt has attempted to elope multiple times since admitted. Pt pacing room when seen and states she'd like to go. Asked pt to sit while we talked and did for a second then stood up with slightly defensive body language (arms across chest) and shortly after resumed pacing. States she's here due to being naked, "walking" on the side of the road due to unknown reason and denies she thinks there's anything bizarre about that behavior. States she was looking for her car but when asked if she knew where it was unable to answer. Asked her to tell me about herself and didn't give any answers. Asked about her psychiatric history and states she's been diagnosed with anxiety before and has taken trazodone. Asked further about any other diagnosis and states "schizophrenia but that was miss diagnosis" but won't give other diagnosis. Attempted to complete MMSE and pt only oriented to self and that she in a hospital, unable to answer day, month, or year. Asked pt to name objects in room and unable to name TV and will only state "I know what it is."" Per follow-up consult note 10/11/18: "Pt seen with sitter present at first resting then woke up. Continues to appear preoccupied internally with thought blocking, poor memory, improving paranoia. Denies hallucinations. [facility]ble to [facility]," and continues to state she's from [place] and lives [facility] when "Hai" is the supervisor dyer. Still can't remember where her car is. States she's doing well and hopes to go home soon. Took risperdal consta but refused oral risperdal this am. Spoke with SW who is attempting to reach pts family with no luck. Can continue search and d/c planning on [facility] with transfer to unit andd more routine psychiatric care. Carloz es SI/HI. Pt no longer pacing, resting peacefully, and walking around her unit in am with staff." VITAL SIGNS: See below. NEW TEST RESULTS: order cbc and cmp wnl CURRENT MEDICATIONS: See below. MENTAL STATUS EXAMINATION: General Appearance: disheveled, appears stated age, hospital scrubs/clothing Build: overweight Demeanor: withdrawn, preoccupied, guarded Eye Contact: fair Activity: slowed, anxious Behavior: cooperative, withdrawn Speech: low in volume, non-spontaneous, impoverished Mood: fatigued Mood "tired" Affect: fatigued Thought Process: concrete, blocked, slow Thought Content (Delusions): denies SI, HI, AVH (appears preoccupied by internal stimuli), paranoia, other (very internally preoccupied) Thought Content (Other): guarded, internal-stimuli, appears paranoid, unable to elaborate Thought Content (Aggressive): none reported Perception (Hallucinations): auditory (appears preoccupied by internal stimuli) Perception (Other): none reported Cognition (Impairment of): orientation, memory, attention/concentration, ability to abstract Cognition(Intelligence Est.): borderline Oriented: Awake, Alert (oriented to self and hospital only) Insight: very poor Judgment: very poor Psychosis: Abstract Thinking, Psychotic Perceptions DIAGNOSES: Schizophrenia - chronic, disorganized type hx bipolar d/o (per [facility] outpatient notes) r/o schizoaffective d/o r/o dissociative amnesia episode ASSESSMENT:Pt seen in her room sleeping as fatigued after receiving invega sustenna yesterday which she tolerated well. Will d/c oral risperdal now that pt has received invega sustenna and should improve daytime fatigue. States she's ok. Ate a muffin, banana, and some eggs this am as checked her tray. Did cooperate with lab draw this am. Per yesterday "Pt refusing to shower stating she washes herself in her room and appears to need a shower, hair very greasy. Pt guarded and irritable She is seen frequently pacing halls appearing lost and responding to internal stimuli. Appears to still have though blocking and internal preoccupation with only limited ability to provide history of what happened in between 09/23/18 to now other than she started driving to [facility] and stopped the car, started walking, took her clothes off, and police picked her up at brought her here. Unable to state why stopped car, why she took her clothes off, why she was driving to [facility] as if she has possibly experienced a dissociative amnesia episode with only an ability to supply vague info possibly related to traumatic event at home prior to leaving or while on road to [facility]. Pt not attending groups secondary paranoia but is walking milieu. Encouraged to go to at least 1 group like activity group like activity group where she doesn't have to talk as may aid working/processing memory to return more rapidly. Continues to struggle with remote memory and still can not remember an other details regarding history and where she's from, who to contact for her to get her home other than those already supplied. Continues to have internal preoccupation and thought blocking." MANAGEMENT PLAN: continue plan and reaching out to outpatient provider to aid in pt returning to home in [place]. D/c oral risperdal Medications: invega sustenna 10/19/18 trazodone 50mg qhs prn insomnia seroquel 100mg qhs TIME SPENT: 30 minutes. Vital Signs Vital Signs Date Time Temp Pulse Resp B/P (MAP) Pulse Ox O2 Delivery O2 Flow Rate FiO2 10/20/18 06:18 99.2 78 12 127/71 (89) Current Medications Current Medications Acetaminophen (Tylenol Tab) 650 mg Q6HP PRN PO HEADACHE or DISCOMFORT; Start 10/11/18 at 15:15 Al Hydrox/Mg Hydrox/Simethicone (Mylanta) 30 ml Q4HP PRN PO HEARTBURN/INDIGESTION; Start 10/11/18 at 15:15 Lorazepam (Ativan) 1 mg Q4HP PRN PO ANXIETY; Start 10/17/18 at 03:30; Stop 10/18/18 at 03:30; Status DC Magnesium Hydroxide (Milk Of Magnesia) 30 ml DAILYPRN PRN PO CONSTIPATION; Start 10/11/18 at 15:15 Potassium Chloride (Micro-K Extencaps) 20 meq DAILY PO Last administered on 10/19/18at 12:46; Start 10/19/18 at 09:00; Stop 10/19/18 at 18:20; Status DC Quetiapine Fumarate (SEROquel) 100 mg QHS PO ; Start 10/15/18 at 21:00 Risperidone (RisperDAL) 1 mg BID PO Last administered on 10/14/18at 08:59; Start 10/12/18 at 21:00; Stop 10/14/18 at 10:28; Status DC Risperidone (RisperDAL) 2 mg BID PO Last administered on 10/17/18at 09:25; Start 10/14/18 at 21:00; Stop 10/18/18 at 09:57; Status DC Risperidone (RisperDAL) 2 mg QHS PO Last administered on 10/18/18at 21:16; Start 10/18/18 at 21:00 Risperidone (RisperDAL) 3 mg BID PO Last administered on 10/11/18at 21:03; Start 10/11/18 at 21:00; Stop 10/12/18 at 10:43; Status DC Trazodone HCl (Desyrel) 50 mg QHSP PRN PO INSOMNIA Last administered on 10/17/18at 03:08; Start 10/11/18 at 15:15; Stop 10/17/18 at 11:14; Status DC Trazodone HCl (Desyrel) 150 mg QHSP PRN PO INSOMNIA; Start 10/17/18 at 11:15 Allergies Coded Allergies: Sulfa (Sulfonamide Antibiotics) (Verified Allergy, Unknown, 10/08/18) JERED RAVI DO Oct 20, 2018 9:16 am
[2018-10-20 18:00] VITALS: BP 132/80
[2018-10-20] MEDS: QUEtiapine FUMARATE 100 MG TAB PO SCH (21:00)
[2018-10-21 07:16] VITALS: BP 128/66
--- NOTE | 2018-10-21 10:11 | MHIPNPDOC ---
[facility] Progress Note Progress Note DATE OF SERVICE: 10/21/18 HISTORY: Patient is a 52 -year-old , female, who was seen on consult from medicine prior admission and per consult note: Per medical admit note: "Pt is a 52 YO F with unknown past medical history and past psychiatric history who was found naked and nonverbal walking along [address]. She was saying things that included "Anthony is " and leads found her to be fearful, wide-eyed, and paranoid. She was also agitated and restless. She demonstrated disorientation and confusion as well as difficulty concentrating. She is reportedly from [facility] and it is unknown how she found her way to [place]. She denies any recent drug use. The ED at [facility] was able to find the name of a hospital where she had been previously treated in [place] and found that she has Graves' disease and unknown psychiatric history for which she takes trazodone daily. She had an unremarkable CT head, but slightly elevated ammonia level at 41. Her CPK level was also found to be 638. [facility] gave the patient 1 mg of Ativan and Narcan, but it is unclear whether they gave her lactulose. She was brought to [facility] for further medical management and psychiatry intervention. On exam, she is not answering any questions appropriately." Per psych initial consult note: "Pt seen with sitter present. Sitter in place as pt has attempted to elope multiple times since admitted. Pt pacing room when seen and states she'd like to go. Asked pt to sit while we talked and did for a second then stood up with slightly defensive body language (arms across chest) and shortly after resumed pacing. States she's here due to being naked, "walking" on the side of the road due to unknown reason and denies she thinks there's anything bizarre about that behavior. States she was looking for her car but when asked if she knew where it was unable to answer. Asked her to tell me about herself and didn't give any answers. Asked about her psychiatric history and states she's been diagnosed with anxiety before and has taken trazodone. Asked further about any other diagnosis and states "schizophrenia but that was miss diagnosis" but won't give other diagnosis. Attempted to complete MMSE and pt only oriented to self and that she in a hospital, unable to answer day, month, or year. Asked pt to name objects in room and unable to name TV and will only state "I know what it is."" Per follow-up consult note 10/11/18: "Pt seen with sitter present at first resting then woke up. Continues to appear preoccupied internally with thought blocking, poor memory, improving paranoia. Denies hallucinations. [facility] to [facility]," and continues to state she's from [place] and [facility] when "Hai" is the lending activities supervisor. Still can't remember where her car is. States she's doing well and hopes to go home soon. Took risperdal consta but refused oral risperdal this am. Spoke with SW who is attempting to reach pts family with no luck. Can continue search and d/c planning on [facility] with transfer to unit andd more routine psychiatric care. Carloz es SI/HI. Pt no longer pacing, resting peacefully, and walking around her unit in am with staff." VITAL SIGNS: See below. NEW TEST RESULTS: order cbc and cmp wnl CURRENT MEDICATIONS: See below. MENTAL STATUS EXAMINATION: General Appearance: disheveled, appears stated age, hospital scrubs/clothing Build: overweight Demeanor: withdrawn, preoccupied, guarded Eye Contact: fair Activity: slowed, anxious Behavior: cooperative, withdrawn Speech: low in volume, non-spontaneous, impoverished Mood: fatigued Mood "tired" Affect: fatigued Thought Process: concrete, blocked, slow Thought Content (Delusions): denies SI, HI, AVH (appears preoccupied by internal stimuli), paranoia, other (very internally preoccupied) Thought Content (Other): guarded, internal-stimuli, appears paranoid, unable to elaborate Thought Content (Aggressive): none reported Perception (Hallucinations): auditory (appears preoccupied by internal stimuli) Perception (Other): none reported Cognition (Impairment of): orientation, memory, attention/concentration, ability to abstract Cognition(Intelligence Est.): borderline Oriented: Awake, Alert (oriented to self and hospital only) Insight: very poor Judgment: very poor Psychosis: Abstract Thinking, Psychotic Perceptions DIAGNOSES: Schizophrenia - chronic, disorganized type hx bipolar d/o (per [facility] outpatient notes) r/o schizoaffective d/o r/o dissociative amnesia episode ASSESSMENT:Pt seen in her room sleeping but states she's not as fatigued as she was yesterday since oral risperdal d/c. Asked if she remembered where her car is and stated no then stated "I don't even though where I am" and I told her where she is. Did not seem to want to discuss further and walked out of room slightly irritated. Continues to refuse to shower stating she washes herself in her room and appears to need a shower, hair very greasy. Pt guarded and irritable She is seen frequently pacing halls appearing lost and responding to internal stimuli. Appears to still have though blocking and internal preoccupation with only limited ability to provide history of what happened in between 09/23/18 to now other than she started driving to [facility] and stopped the car, started walking, took her clothes off, and police picked her up at brought her here. Unable to state why stopped car, why she took her clothes off, why she was driving to [facility] as if she has possibly experienced a dissociative amnesia episode with only an ability to supply vague info possibly related to traumatic event at home prior to leaving or while on road to [facility]. Pt not attending groups secondary paranoia but is walking milieu. Encouraged to go to at least 1 group like activity group like activity group where she doesn't have to talk as may aid working/processing memory to return more rapidly. Continues to struggle with remote memory and still can not remember an other details regarding history and where she's from, who to contact for her to get her home other than those already supplied. Continues to have internal preoccupation and thought blocking. MANAGEMENT PLAN: continue plan and reaching out to outpatient provider to aid in pt returning to home in [place]. D/c oral risperdal Medications: invega sustenna 10/19/18 trazodone 50mg qhs prn insomnia seroquel 100mg qhs TIME SPENT: 30 minutes. Vital Signs Vital Signs Date Time Temp Pulse Resp B/P (MAP) Pulse Ox O2 Delivery O2 Flow Rate FiO2 10/21/18 07:16 98.3 74 14 128/66 (86) Current Medications Current Medications Acetaminophen (Tylenol Tab) 650 mg Q6HP PRN PO HEADACHE or DISCOMFORT; Start 10/11/18 at 15:15 Al Hydrox/Mg Hydrox/Simethicone (Mylanta) 30 ml Q4HP PRN PO HEARTBURN/INDIGESTION; Start 10/11/18 at 15:15 Lorazepam (Ativan) 1 mg Q4HP PRN PO ANXIETY; Start 10/17/18 at 03:30; Stop 10/18/18 at 03:30; Status DC Magnesium Hydroxide (Milk Of Magnesia) 30 ml DAILYPRN PRN PO CONSTIPATION; Start 10/11/18 at 15:15 Potassium Chloride (Micro-K Extencaps) 20 meq DAILY PO Last administered on 10/19/18at 12:46; Start 10/19/18 at 09:00; Stop 10/19/18 at 18:20; Status DC Quetiapine Fumarate (SEROquel) 100 mg QHS PO ; Start 10/15/18 at 21:00 Risperidone (RisperDAL) 1 mg BID PO Last administered on 10/14/18at 08:59; Start 10/12/18 at 21:00; Stop 10/14/18 at 10:28; Status DC Risperidone (RisperDAL) 2 mg BID PO Last administered on 10/17/18at 09:25; Start 10/14/18 at 21:00; Stop 10/18/18 at 09:57; Status DC Risperidone (RisperDAL) 2 mg QHS PO Last administered on 10/18/18at 21:16; Start 10/18/18 at 21:00; Stop 10/20/18 at 10:14; Status DC Risperidone (RisperDAL) 3 mg BID PO Last administered on 10/11/18at 21:03; Start 10/11/18 at 21:00; Stop 10/12/18 at 10:43; Status DC Trazodone HCl (Desyrel) 50 mg QHSP PRN PO INSOMNIA Last administered on 10/17/18at 03:08; Start 10/11/18 at 15:15; Stop 10/17/18 at 11:14; Status DC Trazodone HCl (Desyrel) 150 mg QHSP PRN PO INSOMNIA; Start 10/17/18 at 11:15 Allergies Coded Allergies: Sulfa (Sulfonamide Antibiotics) (Verified Allergy, Unknown, 10/08/18) A-FIB/CHADSVASC A-FIB History Current/History of A-Fib/PAF?: No Treatment Treatment ordered: NONE Reason Anticoagulant not given: Not indicated/[id number] JERED RAVI DO Oct 21, 2018 10:11
[2018-10-21 18:08] VITALS: BP 99/55
[2018-10-21] MEDS: QUEtiapine FUMARATE 100 MG TAB PO SCH (20:56)
--- NOTE | 2018-10-22 09:55 | MHIPNPDOC ---
[facility] Progress Note Progress Note DATE OF SERVICE: 10/22/18 HISTORY: Patient is a 52 -year-old , female, who was seen on consult from medicine prior admission and per consult note: Per medical admit note: "Pt is a 52 YO F with unknown past medical history and past psychiatric history who was found naked and [place]verbal [place] [address] She was saying things that included "Anthony is " and leads found her to be fearful, wide-eyed, and paranoid. She was also agitated and restless. She demonstrated disorientation and confusion as well as difficulty concentrating. She is reportedly from [facility] and it is unknown how she found her way to [place]. She denies any recent drug use. The ED at [facility] was able to find the name of a hospital where she had been previously treated in [place] and found that she has Graves' disease and unknown psychiatric history for which she takes trazodone daily. She had an unremarkable CT head, but slightly elevated ammonia level at 41. Her CPK level was also found to be 638. [facility] gave the patient 1 mg of Ativan and Narcan, but it is unclear whether they gave her lactulose. She was brought to [facility] for further medical management and psychiatry intervention. On exam, she is not answering any questions appropriately." Per psych initial consult note: "Pt seen with sitter present. Sitter in place as pt has attempted to elope multiple times since admitted. Pt pacing room when seen and states she'd like to go. Asked pt to sit while we talked and did for a second then stood up with slightly defensive body language (arms across chest) and shortly after resumed pacing. States she's here due to being naked, "walking" on the side of the road due to unknown reason and denies she thinks there's anything bizarre about that behavior. States she was looking for her car but when asked if she knew where it was unable to answer. Asked her to tell me about herself and didn't give any answers. Asked about her psychiatric history and states she's been diagnosed with anxiety before and has taken trazodone. Asked further about any other diagnosis and states "schizophrenia but that was miss diagnosis" but won't give other diagnosis. Attempted to complete MMSE and pt only oriented to self and that she in a hospital, unable to answer day, month, or year. Asked pt to name objects in room and unable to name TV and will only state "I know what it is."" Per follow-up consult note 10/11/18: "Pt seen with sitter present at first resting then woke up. Continues to appear preoccupied internally with thought blocking, poor memory, improving paranoia. Denies hallucinations. [facility]ble to remember [facility]," and continues to state she's from [place] and [facility] when "Hai" is the computer analyst supervisor. Still can't remember where her car is. States she's doing well and hopes to go home soon. Took risperdal consta but refused oral risperdal this am. Spoke with SW who is attempting to reach pts family with no luck. Can continue search and d/c planning on [facility] with transfer to unit andd more routine psychiatric care. Carloz es SI/HI. Pt no longer pacing, resting peacefully, and walking around her unit in am with staff." VITAL SIGNS: See below. NEW TEST RESULTS: order cbc and cmp wnl CURRENT MEDICATIONS: See below. MENTAL STATUS EXAMINATION: General Appearance: disheveled, appears stated age, hospital scrubs/clothing Build: overweight Demeanor: withdrawn, preoccupied, guarded Eye Contact: fair Activity: slowed, anxious Behavior: cooperative, withdrawn Speech: low in volume, non-spontaneous, impoverished Mood: fatigued Mood "tired" Affect: fatigued Thought Process: concrete, blocked, slow Thought Content (Delusions): denies SI, HI, AVH (appears preoccupied by internal stimuli), paranoia, other (very internally preoccupied) Thought Content (Other): guarded, internal-stimuli, appears paranoid, unable to elaborate Thought Content (Aggressive): none reported Perception (Hallucinations): auditory (appears preoccupied by internal stimuli) Perception (Other): none reported Cognition (Impairment of): orientation, memory, attention/concentration, ability to abstract Cognition(Intelligence Est.): borderline Oriented: Awake, Alert (oriented to self and hospital only) Insight: very poor Judgment: very poor Psychosis: Abstract Thinking, Psychotic Perceptions DIAGNOSES: Schizophrenia - chronic, disorganized type hx bipolar d/o (per [facility] outpatient notes) r/o schizoaffective d/o r/o dissociative amnesia episode ASSESSMENT:Pt seen in her room pacing appearing anxious and paranoid with very little speech mostly nodding her head in response. Told pt that d/c search planner found her car at an impound lot for her and did not appear concerned or show any emotion about it. Asked "who's Aston" her d/c search planner that she has meet with several times. Continues to refuse to shower stating she washes herself in her room and appears to need a shower, hair very greasy. Pt guarded and irritable She is seen frequently pacing halls appearing lost and responding to internal stimuli. Appears to still have though blocking and internal preoccupation with only limited ability to provide history of what happened in between 09/23/18 to now other than she started driving to [facility] and stopped the car, started walking, took her clothes off, and police picked her up at brought her here. Unable to state why stopped car, why she took her clothes off, why she was driving to [facility] as if she has possibly experienced a dissociative amnesia episode with only an a bility to supply vague info possibly related to traumatic event at home prior to leaving or while on road to [facility]. Pt not attending groups secondary paranoia but is walking milieu. Encouraged to go to at least 1 group like activity group like activity group where she doesn't have to talk as may aid working/processing memory to return more rapidly. Continues to struggle with remote memory and still can not remember an other details regarding history and where she's from, who to contact for her to get her home other than those already supplied. Continues to have internal preoccupation and thought blocking, paranoid that is worse with d/c oral risperidone. Will restart 1mg qhs for psychosis. MANAGEMENT PLAN: continue plan and reaching out to outpatient provider to aid in pt returning to home in [place]. restart oral risperdal 1mg qhs Medications: invega sustenna 10/19/18 trazodone 50mg qhs prn insomnia seroquel 100mg qhs risperidone 1mg qhs TIME SPENT: 30 minutes. Vital Signs Vital Signs Date Time Temp Pulse Resp B/P (MAP) Pulse Ox O2 Delivery O2 Flow Rate FiO2 10/21/18 18:08 98.6 78 16 99/55 (70) Current Medications Current Medications Acetaminophen (Tylenol Tab) 650 mg Q6HP PRN PO HEADACHE or DISCOMFORT; Start 10/11/18 at 15:15 Al Hydrox/Mg Hydrox/Simethicone (Mylanta) 30 ml Q4HP PRN PO HEARTBURN/INDIGESTION; Start 10/11/18 at 15:15 Lorazepam (Ativan) 1 mg Q4HP PRN PO ANXIETY; Start 10/17/18 at 03:30; Stop 10/18/18 at 03:30; Status DC Magnesium Hydroxide (Milk Of Magnesia) 30 ml DAILYPRN PRN PO CONSTIPATION; Start 10/11/18 at 15:15 Potassium Chloride (Micro-K Extencaps) 20 meq DAILY PO Last administered on 10/19/18at 12:46; Start 10/19/18 at 09:00; Stop 10/19/18 at 18:20; Status DC Quetiapine Fumarate (SEROquel) 100 mg QHS PO ; Start 10/15/18 at 21:00 Risperidone (RisperDAL) 1 mg BID PO Last administered on 10/14/18at 08:59; Start 10/12/18 at 21:00; Stop 10/14/18 at 10:28; Status DC Risperidone (RisperDAL) 2 mg BID PO Last administered on 10/17/18at 09:25; Start 10/14/18 at 21:00; Stop 10/18/18 at 09:57; Status DC Risperidone (RisperDAL) 2 mg QHS PO Last administered on 10/18/18at 21:16; Start 10/18/18 at 21:00; Stop 10/20/18 at 10:14; Status DC Risperidone (RisperDAL) 3 mg BID PO Last administered on 10/11/18at 21:03; Start 10/11/18 at 21:00; Stop 10/12/18 at 10:43; Status DC Trazodone HCl (Desyrel) 50 mg QHSP PRN PO INSOMNIA Last administered on 10/17/18at 03:08; Start 10/11/18 at 15:15; Stop 10/17/18 at 11:14; Status DC Trazodone HCl (Desyrel) 150 mg QHSP PRN PO INSOMNIA; Start 10/17/18 at 11:15 Allergies Coded Allergies: Sulfa (Sulfonamide Antibiotics) (Verified Allergy, Unknown, 10/08/18) A-FIB/CHADSVASC A-FIB History Current/History of A-Fib/PAF?: No Current Oral Anticoagulant The: No Treatment Treatment ordered: NONE Reason Anticoagulant not given: Not indicated/[id number] JERED RAVI DO Oct 22, 2018 09:55
[2018-10-22 18:10] VITALS: BP 131/76
[2018-10-22] MEDS: QUEtiapine FUMARATE 100 MG TAB PO SCH (21:00)
[2018-10-22] MEDS: risperiDONE 1 MG TAB PO SCH (21:00)
[2018-10-23 06:11] VITALS: BP 112/59
[2018-10-23 18:25] VITALS: BP 128/78
[2018-10-23] MEDS: QUEtiapine FUMARATE 100 MG TAB PO SCH (21:00)
[2018-10-23] MEDS: risperiDONE 1 MG TAB PO SCH (21:00)
[2018-10-24 06:24] VITALS: BP 144/67
[2018-10-24 18:40] VITALS: BP 124/61
[2018-10-24] MEDS: risperiDONE 1 MG TAB PO SCH (21:00)
[2018-10-24] MEDS: QUEtiapine FUMARATE 100 MG TAB PO SCH (21:00)
[2018-10-25 06:39] VITALS: BP 125/58
--- NOTE | 2018-10-25 10:32 | MHIPNPDOC ---
[facility] Progress Note Progress Note DATE OF SERVICE: 10/25/18 HISTORY: Patient is a 52 -year-old , female, who was seen on consult from medicine prior admission and per consult note: Per medical admit note: "Pt is a 52 YO F with unknown past medical history and past psychiatric history who was found naked and nonverbal walking [place] [address] She was saying things that included "Anthony is " and leads found her to be fearful, wide-eyed, and paranoid. She was also agitated and restless. She demonstrated disorientation and confusion as well as difficulty concentrating. She is reportedly from [facility] and it is unknown how she found her way to [place]. She denies any recent drug use. The ED at [facility] was able to find the name of a hospital where she had been previously treated in [place] and found that she has Graves' disease and unknown psychiatric history for which she takes trazodone daily. She had an unremarkable CT head, but slightly elevated ammonia level at 41. Her CPK level was also found to be 638. [facility] gave the patient 1 mg of Ativan and Narcan, but it is unclear whether they gave her lactulose. She was brought to [facility] for further medical management and psychiatry intervention. On exam, she is not answering any questions appropriately." Per psych initial consult note: "Pt seen with sitter present. Sitter in place as pt has attempted to elope multiple times since admitted. Pt pacing room when seen and states she'd like to go. Asked pt to sit while we talked and did for a second then stood up with slightly defensive body language (arms across chest) and shortly after resumed pacing. States she's here due to being naked, "walking" on the side of the road due to unknown reason and denies she thinks there's anything bizarre about that behavior. States she was looking for her car but when asked if she knew where it was unable to answer. Asked her to tell me about herself and didn't give any answers. Asked about her psychiatric history and states she's been diagnosed with anxiety before and has taken trazodone. Asked further about any other diagnosis and states "schizophrenia but that was miss diagnosis" but won't give other diagnosis. Attempted to complete MMSE and pt only oriented to self and that she in a hospital, unable to answer day, month, or year. Asked pt to name objects in room and unable to name TV and will only state "I know what it is."" Per follow-up consult note 10/11/18: "Pt seen with sitter present at first resting then woke up. Continues to appear preoccupied internally with thought blocking, poor memory, improving paranoia. Denies hallucinations. [facility]ble to remember [facility]," and continues to state she's from [place] and lives in an app[facility] when "Hai" is the repair department supervisor. Still can't remember where her car is. States she's doing well and hopes to go home soon. Took risperdal consta but refused oral risperdal this am. Spoke with SW who is attempting to reach pts family with no luck. Can continue search and d/c planning on [facility] with transfer to unit andd more routine psychiatric care. Carloz es SI/HI. Pt no longer pacing, resting peacefully, and walking around her unit in am with staff." VITAL SIGNS: See below. NEW TEST RESULTS: order cbc and cmp wnl CURRENT MEDICATIONS: See below. MENTAL STATUS EXAMINATION: General Appearance: disheveled, appears stated age, hospital scrubs/clothing Build: overweight Demeanor: withdrawn, preoccupied, guarded Eye Contact: fair Activity: slowed, anxious Behavior: cooperative, withdrawn Speech: low in volume, non-spontaneous, impoverished Mood: fatigued Mood "tired" Affect: fatigued Thought Process: concrete, blocked, slow Thought Content (Delusions): denies SI, HI, AVH (appears preoccupied by internal stimuli), paranoia, other (very internally preoccupied) Thought Content (Other): guarded, internal-stimuli, appears paranoid, unable to elaborate Thought Content (Aggressive): none reported Perception (Hallucinations): auditory (appears preoccupied by internal stimuli) Perception (Other): none reported Cognition (Impairment of): orientation, memory, attention/concentration, ability to abstract Cognition(Intelligence Est.): borderline Oriented: Awake, Alert (oriented to self and hospital only) Insight: very poor Judgment: very poor Psychosis: Abstract Thinking, Psychotic Perceptions DIAGNOSES: Schizophrenia - chronic, disorganized type hx bipolar d/o (per [facility] outpatient notes) r/o schizoaffective d/o r/o dissociative amnesia episode ASSESSMENT:Pt seen in in office with very little speech mostly nodding her head in response. Nodded yes to invega sustenna being beneficial, tolerating it well, denies fatigue secondary to it. Nodded yes that she felt more like herself after injection given confirming that she's quiet. Stated she was looking forward to driving not particularly going home. Stated she knew how to get up home but didn't really confirm stop at home. States she showered two days ago and encouraged to shower later today as part of daily hygiene. Pt guarded and but not irritable. She is seen frequently pacing halls appearing lost and less responding to internal stimuli. Appears to still have though blocking and internal preoccupation with only limited ability to provide history of what happened in between 09/23/18 to now other than she started driving to [facility] and stopped the car, started walking, took her clothes off, and police picked her up at brought her here. Unable to state why stopped car, why she took her clothes off, why she was driving to [facility] as if she has possibly experienced a dissociative amnesia episode with only an ability to supply vague info possibly related to traumatic event at home prior to leaving or while on road to [facility]. Pt not attending groups secondary paranoia but is walking milieu. Encouraged to go to at least 1 group like activity group like activity group where she doesn't have to talk as may aid working/processing memory to return more rapidly. Continues to struggle with remote memory and still can not remember an other details regarding history and where she's from, who to contact for her to get her home other than those already supplied. Continues to have internal preoccupation and thought blocking, paranoid but improving mildly. MANAGEMENT PLAN: continue plan and reaching out to outpatient provider to aid in pt returning to home in [place]. Medications: invega sustenna 10/19/18 trazodone 50mg qhs prn insomnia seroquel 100mg qhs risperidone 1mg qhs TIME SPENT: 30 minutes. Vital Signs Vital Signs Date Time Temp Pulse Resp B/P (MAP) Pulse Ox O2 Delivery O2 Flow Rate FiO2 10/25/18 06:39 97.7 87 12 125/58 (80) Current Medications Current Medications Acetaminophen (Tylenol Tab) 650 mg Q6HP PRN PO HEADACHE or DISCOMFORT; Start 10/11/18 at 15:15 Al Hydrox/Mg Hydrox/Simethicone (Mylanta) 30 ml Q4HP PRN PO HEARTBURN/INDIGESTION; Start 10/11/18 at 15:15 Lorazepam (Ativan) 1 mg Q4HP PRN PO ANXIETY; Start 10/17/18 at 03:30; Stop 10/18/18 at 03:30; Status DC Magnesium Hydroxide (Milk Of Magnesia) 30 ml DAILYPRN PRN PO CONSTIPATION; Start 10/11/18 at 15:15 Potassium Chloride (Micro-K Extencaps) 20 meq DAILY PO Last administered on 10/19/18at 12:46; Start 10/19/18 at 09:00; Stop 10/19/18 at 18:20; Status DC Quetiapine Fumarate (SEROquel) 100 mg QHS PO ; Start 10/15/18 at 21:00 Risperidone (RisperDAL) 1 mg BID PO Last administered on 10/14/18at 08:59; Start 10/12/18 at 21:00; Stop 10/14/18 at 10:28; Status DC Risperidone (RisperDAL) 1 mg QHS PO ; Start 10/22/18 at 21:00 Risperidone (RisperDAL) 2 mg BID PO Last administered on 10/17/18at 09:25; Start 10/14/18 at 21:00; Stop 10/18/18 at 09:57; Status DC Risperidone (RisperDAL) 2 mg QHS PO Last administered on 10/18/18at 21:16; Start 10/18/18 at 21:00; Stop 10/20/18 at 10:14; Status DC Risperidone (RisperDAL) 3 mg BID PO Last administered on 10/11/18at 21:03; Start 10/11/18 at 21:00; Stop 10/12/18 at 10:43; Status DC Trazodone HCl (Desyrel) 50 mg QHSP PRN PO INSOMNIA Last administered on 10/17/18at 03:08; Start 10/11/18 at 15:15; Stop 10/17/18 at 11:14; Status DC Trazodone HCl (Desyrel) 150 mg QHSP PRN PO INSOMNIA; Start 10/17/18 at 11:15 Allergies Coded Allergies: Sulfa (Sulfonamide Antibiotics) (Verified Allergy, Unknown, 10/08/18) A-FIB/CHADSVASC A-FIB History Current/History of A-Fib/PAF?: No Current Oral Anticoagulant The: No Treatment Treatment ordered: NONE Reason Anticoagulant not given: Not indicated/[id number] JERED RAVI DO Oct 25, 2018 10:32
[2018-10-25 18:00] VITALS: BP 111/67
[2018-10-25] MEDS: QUEtiapine FUMARATE 100 MG TAB PO SCH (21:00)
[2018-10-25] MEDS: risperiDONE 1 MG TAB PO SCH (21:00)
[2018-10-26 06:36] VITALS: BP 116/58
--- NOTE | 2018-10-26 11:39 | MHIPNPDOC ---
[facility] Progress Note Progress Note DATE OF SERVICE: 10/26/18 HISTORY: Patient is a 52 -year-old , female, who was seen on consult from medicine prior admission and per consult note: Per medical admit note: "Pt is a 52 YO F with unknown past medical history and past psychiatric history who was found naked and [place]verbal [place] [address] She was saying things that included "Anthony is " and leads found her to be fearful, wide-eyed, and paranoid. She was also agitated and restless. She demonstrated disorientation and confusion as well as difficulty concentrating. She is reportedly from [facility] and it is unknown how she found her way to [place]. She denies any recent drug use. The ED at [facility] was able to find the name of a hospital where she had been previously treated in [place] and found that she has Graves' disease and unknown psychiatric history for which she takes trazodone daily. She had an unremarkable CT head, but slightly elevated ammonia level at 41. Her CPK level was also found to be 638. [facility] gave the patient 1 mg of Ativan and Narcan, but it is unclear whether they gave her lactulose. She was brought to [facility] for further medical management and psychiatry intervention. On exam, she is not answering any questions appropriately." Per psych initial consult note: "Pt seen with sitter present. Sitter in place as pt has attempted to elope multiple times since admitted. Pt pacing room when seen and states she'd like to go. Asked pt to sit while we talked and did for a second then stood up with slightly defensive body language (arms across chest) and shortly after resumed pacing. States she's here due to being naked, "walking" on the side of the road due to unknown reason and denies she thinks there's anything bizarre about that behavior. States she was looking for her car but when asked if she knew where it was unable to answer. Asked her to tell me about herself and didn't give any answers. Asked about her psychiatric history and states she's been diagnosed with anxiety before and has taken trazodone. Asked further about any other diagnosis and states "schizophrenia but that was miss diagnosis" but won't give other diagnosis. Attempted to complete MMSE and pt only oriented to self and that she in a hospital, unable to answer day, month, or year. Asked pt to name objects in room and unable to name TV and will only state "I know what it is."" Per follow-up consult note 10/11/18: "Pt seen with sitter present at first resting then woke up. Continues to appear preoccupied internally with thought blocking, poor memory, improving paranoia. Denies hallucinations. Able to remember [facility]," and continues to state she's from [place] and lives in an appt [facility] when "Hai" is the ski production supervisor. Still can't remember where her car is. States she's doing well and hopes to go home soon. Took risperdal consta but refused oral risperdal this am. Spoke with SW who is attempting to reach pts family with no luck. Can continue search and d/c planning on [facility] with transfer to unit andd more routine psychiatric care. Carloz es SI/HI. Pt no longer pacing, resting peacefully, and walking around her unit in am with staff." VITAL SIGNS: See below. NEW TEST RESULTS: order cbc and cmp wnl CURRENT MEDICATIONS: See below. MENTAL STATUS EXAMINATION: General Appearance: disheveled, appears stated age, hospital scrubs/clothing Build: overweight Demeanor: withdrawn, less preoccupied and guarded Eye Contact: fair Activity: average, less anxious Behavior: cooperative, withdrawn Speech: low in volume, non-spontaneous, impoverished Mood: euthymic, flat Mood "ok" Affect: euthymic, flat Thought Process: concrete, less blocked, slow Thought Content (Delusions): denies SI, HI, AVH (appears less preoccupied by internal stimuli), less paranoia Thought Content (Other): less guarded, appears less paranoid, unable to elaborate Thought Content (Aggressive): none reported Perception (Hallucinations): denies (appears less preoccupied by internal stimuli) Perception (Other): none reported Cognition (Impairment of): poor memory around admission, improved attention/concentration, ability to abstract Cognition(Intelligence Est.): borderline Oriented: Awake, Alert, oriented x3 Insight: very poor Judgment: very poor Psychosis: Abstract Thinking, Psychotic Perceptions DIAGNOSES: Schizophrenia - chronic, disorganized type hx bipolar d/o (per [facility] outpatient notes) r/o schizoaffective d/o r/o dissociative amnesia episode ASSESSMENT:Pt seen in office and more responsive today, less paranoid, stating she feels ok. States she's hopeful to go home soon but states she needs clothes prior to going as has none [place] Will have staff look into possible donated clothing pt may be able to have. Feels invega sustenna is beneficial, tolerating it well, denies side effects to it. Encouraged to shower daily or every other day as part of daily hygiene. Pt less guarded and not irritable. She is seen frequently pacing halls although is less and less responding to internal stimuli. Appears to still have improved thought blocking and internal preoccupation. Continues to have only limited ability to provide history of what happened in between 09/23/18 to now other than she started driving to [facility] and stopped the car, started walking, took her clothes off, and police picked her up at brought her here. Unable to state why stopped car, why she took her clothes off, why she was driving to [facility] as if she has possibly experienced a dissociative amnesia episode with only an ability to supply vague info possibly related to traumatic event at home prior to leaving or while on road to [facility]. Pt not attending groups secondary paranoia but is walking milieu. Encouraged to go to at least 1 group like activity group like activity group where she doesn't have to talk as may aid working/processing memory to return more rapidly. Continues to struggle with remote memory and still can not remember an other details regarding history and where she's from, who to contact for her to get her home other than those already supplied. Continues to have internal preoccupation and thought blocking, paranoid but improving and is less. MANAGEMENT PLAN: continue plan and reaching out to outpatient provider to aid in pt returning to home in [place]. Medications: invega sustenna 10/19/18 trazodone 50mg qhs prn insomnia seroquel 100mg qhs risperidone 1mg qhs TIME SPENT: 30 minutes. Vital Signs Vital Signs Date Time Temp Pulse Resp B/P (MAP) Pulse Ox O2 Delivery O2 Flow Rate FiO2 10/26/18 06:36 98.4 66 14 116/58 (77) Current Medications Current Medications Acetaminophen (Tylenol Tab) 650 mg Q6HP PRN PO HEADACHE or DISCOMFORT; Start 10/11/18 at 15:15 Al Hydrox/Mg Hydrox/Simethicone (Mylanta) 30 ml Q4HP PRN PO HEARTBURN/INDIGESTION; Start 10/11/18 at 15:15 Lorazepam (Ativan) 1 mg Q4HP PRN PO ANXIETY; Start 10/17/18 at 03:30; Stop 10/18/18 at 03:30; Status DC Magnesium Hydroxide (Milk Of Magnesia) 30 ml DAILYPRN PRN PO CONSTIPATION; Sta rt 10/11/18 at 15:15 Potassium Chloride (Micro-K Extencaps) 20 meq DAILY PO Last administered on 10/19/18at 12:46; Start 10/19/18 at 09:00; Stop 10/19/18 at 18:20; Status DC Quetiapine Fumarate (SEROquel) 100 mg QHS PO ; Start 10/15/18 at 21:00 Risperidone (RisperDAL) 1 mg BID PO Last administered on 10/14/18at 08:59; Start 10/12/18 at 21:00; Stop 10/14/18 at 10:28; Status DC Risperidone (RisperDAL) 1 mg QHS PO ; Start 10/22/18 at 21:00 Risperidone (RisperDAL) 2 mg BID PO Last administered on 10/17/18at 09:25; Start 10/14/18 at 21:00; Stop 10/18/18 at 09:57; Status DC Risperidone (RisperDAL) 2 mg QHS PO Last administered on 10/18/18at 21:16; Start 10/18/18 at 21:00; Stop 10/20/18 at 10:14; Status DC Risperidone (RisperDAL) 3 mg BID PO Last administered on 10/11/18at 21:03; Start 10/11/18 at 21:00; Stop 10/12/18 at 10:43; Status DC Trazodone HCl (Desyrel) 50 mg QHSP PRN PO INSOMNIA Last administered on 10/17/18at 03:08; Start 10/11/18 at 15:15; Stop 10/17/18 at 11:14; Status DC Trazodone HCl (Desyrel) 150 mg QHSP PRN PO INSOMNIA; Start 10/17/18 at 11:15 Allergies Coded Allergies: Sulfa (Sulfonamide Antibiotics) (Verified Allergy, Unknown, 10/08/18) A-FIB/CHADSVASC A-FIB History Current/History of A-Fib/PAF?: No Current Oral Anticoagulant The: No Treatment Reason Anticoagulant not given: Not indicated/[id number] JERED RAVI DO Oct 26, 2018 11:39
[2018-10-26 18:00] VITALS: BP 115/60
[2018-10-26] MEDS: QUEtiapine FUMARATE 100 MG TAB PO SCH (21:26)
[2018-10-26] MEDS: risperiDONE 1 MG TAB PO SCH (21:26)
[2018-10-27 06:39] VITALS: BP 129/73
--- NOTE | 2018-10-27 09:10 | MHIPNPDOC ---
[facility] Progress Note Progress Note DATE OF SERVICE: 10/27/18 HISTORY: Patient is a 52 -year-old , female, who was seen on consult from medicine prior admission and per consult note: Per medical admit note: "Pt is a 52 YO F with unknown past medical history and past psychiatric history who was found naked and nonverbal [place] [address] She was saying things that included "Anthony is " and leads found her to be fearful, wide-eyed, and paranoid. She was also agitated and restless. She demonstrated disorientation and confusion as well as difficulty concentrating. She is reportedly from [facility] and it is unknown how she found her way to [place]. She denies any recent drug use. The ED at [facility] was able to find the name of a hospital where she had been previously treated in [place] and found that she has Graves' disease and unknown psychiatric history for which she takes trazodone daily. She had an unremarkable CT head, but slightly elevated ammonia level at 41. Her CPK level was also found to be 638. [facility] gave the patient 1 mg of Ativan and Narcan, but it is unclear whether they gave her lactulose. She was brought to [facility] for further medical management and psychiatry intervention. On exam, she is not answering any questions appropriately." Per psych initial consult note: "Pt seen with sitter present. Sitter in place as pt has attempted to elope multiple times since admitted. Pt pacing room when seen and states she'd like to go. Asked pt to sit while we talked and did for a second then stood up with slightly defensive body language (arms across chest) and shortly after resumed pacing. States she's here due to being naked, "walking" on the side of the road due to unknown reason and denies she thinks there's anything bizarre about that behavior. States she was looking for her car but when asked if she knew where it was unable to answer. Asked her to tell me about herself and didn't give any answers. Asked about her psychiatric history and states she's been diagnosed with anxiety before and has taken trazodone. Asked further about any other diagnosis and states "schizophrenia but that was miss diagnosis" but won't give other diagnosis. Attempted to complete MMSE and pt only oriented to self and that she in a hospital, unable to answer day, month, or year. Asked pt to name objects in room and unable to name TV and will only state "I know what it is."" Per follow-up consult note 10/11/18: "Pt seen with sitter present at first resting then woke up. Continues to appear preoccupied internally with thought blocking, poor memory, improving paranoia. Denies hallucinations. 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 Still can't remember where her car is. States she's doing well and hopes to go home soon. Took risperdal consta but refused oral risperdal this am. Spoke with SW who is attempting to reach pts family with no luck. Can continue search and d/c planning on [facility] with transfer to unit andd more routine psychiatric care. Denies SI/HI. Pt no longer pacing, resting peacefully, and walking around her unit in am with staff." VITAL SIGNS: See below. NEW TEST RESULTS: order cbc and cmp wnl CURRENT MEDICATIONS: See below. MENTAL STATUS EXAMINATION: General Appearance: disheveled, appears stated age, hospital scrubs/clothing Build: overweight Demeanor: withdrawn Eye Contact: fair Activity: average, less anxious Behavior: cooperative, withdrawn Speech: low in volume, spontaneous Mood: euthymic, flat Mood "ok" Affect: euthymic, flat Thought Process: concrete, no longer blocked, mostly linear and logical Thought Content (Delusions): denies SI, HI, AVH (appears less preoccupied by internal stimuli), less paranoia Thought Content (Other): less guarded, appears less paranoid, unable to elaborate Thought Content (Aggressive): none reported Perception (Hallucinations): denies (appears no longer preoccupied by internal stimuli) Perception (Other): none reported Cognition (Impairment of): poor memory around admission, improved attention/concentration Cognition(Intelligence Est.): borderline Oriented: Awake, Alert, oriented x3 Insight: very poor Judgment: very poor Psychosis: improved Abstract Thinking, Psychotic Perceptions DIAGNOSES: Schizophrenia - chronic, disorganized type hx bipolar d/o (per [facility] outpatient notes) r/o schizoaffective d/o r/o dissociative amnesia episode ASSESSMENT:Pt seen in her room and in office stating she took seroquel and trazodone last night and is now feeling "out of it" and very fatigued. Asking if seroquel can be prn as believes that's what's making her overtly tired. Told will decrease dose and make prn to alleviate daytime fatigue. States nurse spoke to her about possible transfer to [facility] facility for longer term treatment. Told pt that the goal is to [place] [facility] as she is overall doing much better which she hopes will happen to. Pt is more oriented with logical, linear thoughts. She appears to no longer be responding to internal stimuli and is much less paranoid. She is compliant with her medications. She is future oriented toward returning home. She denies depression, SI/HI. She still does not attend groups most likely due to social anxiety and paranoia that appear to be her baseline and unresponsive to medication. Pt needs clothes prior to going as has none due [place] [address]. Will have staff look into possible donated clothing pt may be able to have. Feels invega sustenna is beneficial, tolerating it well, denies side effects to it. Pt less guarded and not irritable. Pt no longer pacing halls. Continues to have only limited ability to provide history of what happened in between 09/23/18 to now other than she started driving to [facility] and stopped the car, started walking, took her clothes off, and police picked her up at brought her here. Unable to state why stopped car, why she took her clothes off, why she was driving to [facility] as if she has possibly experienced a dissociative amnesia episode with only an ability to supply vague info possibly related to traumatic event at home prior to leaving or while on road to [facility]. MANAGEMENT PLAN: continue plan and reaching out to outpatient provider to aid in pt returning to home in [place]. Decrease seroquel and make prn. Medications: invega sustenna 10/19/18 trazodone 50mg qhs prn insomnia seroquel 50mg qhs prn insomnia risperidone 1mg qhs TIME SPENT: 30 minutes. Vital Signs Vital Signs Date Time Temp Pulse Resp B/P (MAP) Pulse Ox O2 Delivery O2 Flow Rate FiO2 10/27/18 06:39 98.3 74 14 129/73 (91) Current Medications Current Medications Acetaminophen (Tylenol Tab) 650 mg Q6HP PRN PO HEADACHE or DISCOMFORT; Start 10/11/18 at 15:15 Al Hydrox/Mg Hydrox/Simethicone (Mylanta) 30 ml Q4HP PRN PO HEARTBURN/INDIGESTION; Start 10/11/18 at 15:15 Lorazepam (Ativan) 1 mg Q4HP PRN PO ANXIETY; Start 10/17/18 at 03:30; Stop 10/18/18 at 03:30; Status DC Magnesium Hydroxide (Milk Of Magnesia) 30 ml DAILYPRN PRN PO CONSTIPATION; Start 10/11/18 at 15:15 Potassium Chloride (Micro-K Extencaps) 20 meq DAILY PO Last administered on 10/19/18at 12:46; Start 10/19/18 at 09:00; Stop 10/19/18 at 18:20; Status DC Quetiapine Fumarate (SEROquel) 100 mg QHS PO Last administered on 10/26/18 21:26; Start 10/15/18 at 21:00 Risperidone (RisperDAL) 1 mg BID PO Last administered on 10/14/18 08:59; Start 10/12/18 at 21:00; Stop 10/14/18 at 10:28; Status DC Risperidone (RisperDAL) 1 mg QHS PO Last administered on 10/26/18 21:26; Start 10/22/18 at 21:00 Risperidone (RisperDAL) 2 mg BID PO Last administered on 10/17/18 09:25; Start 10/14/18 at 21:00; Stop 10/18/18 at 09:57; Status DC Risperidone (RisperDAL) 2 mg QHS PO Last administered on 10/18/18 21:16; Start 10/18/18 at 21:00; Stop 10/20/18 at 10:14; Status DC Risperidone (RisperDAL) 3 mg BID PO Last administered on 10/11/18 21:03; Start 10/11/18 at 21:00; Stop 10/12/18 at 10:43; Status DC Trazodone HCl (Desyrel) 50 mg QHSP PRN PO INSOMNIA Last administered on 10/17/18 03:08; Start 4/15/19 at 15:15; Stop 10/17/18 at 11:14; Status DC Trazodone HCl (Desyrel) 150 mg QHSP PRN PO INSOMNIA; Start 10/17/18 at 11:15 Allergies Coded Allergies: Sulfa (Sulfonamide Antibiotics) (Verified Allergy, Unknown, 10/08/18) A-FIB/CHADSVASC A-FIB History Current/History of A-Fib/PAF?: No Current Oral Anticoagulant The: No Treatment Treatment ordered: NONE Reason Anticoagulant not given: Not indicated/[id number] JERED RAVI DO October 27, 2018 9:09 am
[2018-10-27 18:00] VITALS: BP 121/64
[2018-10-27] MEDS ORDERED: QUEtiapine FUMARATE 50 MG TAB PO PRN (21:00)
[2018-10-27] MEDS: risperiDONE 1 MG TAB PO SCH (21:00)
[2018-10-28 07:50] VITALS: BP 122/71
--- NOTE | 2018-10-28 10:26 | MHIPNPDOC ---
[facility] Progress Note Progress Note DATE OF SERVICE: 10/28/18 HISTORY: Patient is a 52 -year-old , female, who was seen on consult from medicine prior admission and per consult note: Per medical admit note: "Pt is a 52 YO F with unknown past medical history and past psychiatric history who was found naked and [place]verbal [place] [address] She was saying things that included "Anthony is " and leads found her to be fearful, wide-eyed, and paranoid. She was also agitated and restless. She demonstrated disorientation and confusion as well as difficulty concentrating. She is reportedly from [facility] and it is unknown how she found her way to [place]. She denies any recent drug use. The ED at [facility] was able to find the name of a hospital where she had been previously treated in [place] and found that she has Graves' disease and unknown psychiatric history for which she takes trazodone daily. She had an unremarkable CT head, but slightly elevated ammonia level at 41. Her CPK level was also found to be 638. [facility] gave the patient 1 mg of Ativan and Narcan, but it is unclear whether they gave her lactulose. She was brought to [facility] for further medical management and psychiatry intervention. On exam, she is not answering any questions appropriately." Per psych initial consult note: "Pt seen with sitter present. Sitter in place as pt has attempted to elope multiple times since admitted. Pt pacing room when seen and states she'd like to go. Asked pt to sit while we talked and did for a second then stood up with slightly defensive body language (arms across chest) and shortly after resumed pacing. States she's here due to being naked, "walking" on the side of the road due to unknown reason and denies she thinks there's anything bizarre about that behavior. States she was looking for her car but when asked if she knew where it was unable to answer. Asked her to tell me about herself and didn't give any answers. Asked about her psychiatric history and states she's been diagnosed with anxiety before and has taken trazodone. Asked further about any other diagnosis and states "schizophrenia but that was miss diagnosis" but won't give other diagnosis. Attempted to complete MMSE and pt only oriented to self and that she in a hospital, unable to answer day, month, or year. Asked pt to name objects in room and unable to name TV and will only state "I know what it is."" Per follow-up consult note 10/11/18: "Pt seen with sitter present at first resting then woke up. Continues to appear preoccupied internally with thought blocking, poor memory, improving paranoia. Denies hallucinations. [facility]ble to [facility]," and continues to state she's from [place] [facility] "Hai" is the engineering design supervisor. Still can't remember where her car is. States she's doing well and hopes to go home soon. Took risperdal consta but refused oral risperdal this am. Spoke with SW who is attempting to reach pts family with no luck. Can continue search and d/c planning on [facility] with transfer to unit andd more routine psychiatric care. Denies SI/HI. Pt no longer pacing, resting peacefully, and walking around her unit in am with staff." VITAL SIGNS: See below. NEW TEST RESULTS: order cbc and cmp wnl CURRENT MEDICATIONS: See below. MENTAL STATUS EXAMINATION: General Appearance: disheveled, appears stated age, hospital scrubs/clothing Build: overweight Demeanor: average Eye Contact: good Activity: average, calm Behavior: cooperative Speech: reg in volume, spontaneous Mood: euthymic Mood "ok" Affect: euthymic, congruent, calm Thought Process: concrete, no longer blocked, linear and logical Thought Content (Delusions): denies SI, HI, AVH (appears no longer preoccupied by internal stimuli) Thought Content (Other): none reported Thought Content (Aggressive): none reported Perception (Hallucinations): denies (appears no longer preoccupied by internal stimuli) Perception (Other): none reported Cognition (Impairment of): none reported Cognition(Intelligence Est.): average Oriented: Awake, Alert, oriented x3 Insight: fair Judgment: fair Psychosis: none reported DIAGNOSES: Schizophrenia - chronic, disorganized type hx bipolar d/o (per [facility] outpatient notes) r/o schizoaffective d/o r/o dissociative amnesia episode ASSESSMENT:Pt seen in in office she feels better, more awake and like herself, since note taking seroquel or trazodone last night. States she would like to know if her keys and wallet are in her car b/c if she is going to drive it home she will need those things to get home and doesn't want to get to the impound lot, not have them, and not be able to take her car to get home. Agreeable to bus ticket home or possibly having security sales manager, Hai, from [employer] picking her up (states he's done it before from a facility far from home). Pt is more oriented with logical, linear thoughts. She appears to no longer be responding to internal stimuli and is much less paranoid. She is compliant with her medications. She is future oriented x3 and focused on returning home. She denies depression, SI/HI. Thoughts are linear and logical. She is no longer blocked in thought nor responding internal stimuli. She is socializing on milieu with her peers occasionally. She is no longer paranoid. Pt needs clothes prior to going as has none [place] and got her sizes so that some can be found within donations and what ever not found purchased. Feels invega sustenna is beneficial, tolerating it well, denies side effects to it. Pt less guarded and not irritable. Pt no longer pacing halls. MANAGEMENT PLAN: continue plan and having pt return to home in [place]. Medications: invega sustenna 10/19/18 trazodone 50mg qhs prn insomnia seroquel 50mg qhs prn insomnia risperidone 1mg qhs TIME SPENT: 30 minutes. Vital Signs Vital Signs Date Time Temp Pulse Resp B/P (MAP) Pulse Ox O2 Delivery O2 Flow Rate FiO2 10/28/18 07:50 98.8 83 14 122/71 (88) Current Medications Current Medications Acetaminophen (Tylenol Tab) 650 mg Q6HP PRN PO HEADACHE or DISCOMFORT; Start 10/11/18 at 15:15 Al Hydrox/Mg Hydrox/Simethicone (Mylanta) 30 ml Q4HP PRN PO HEARTBURN/INDIGESTION; Start 10/11/18 at 15:15 Lorazepam (Ativan) 1 mg Q4HP PRN PO ANXIETY; Start 10/17/18 at 03:30; Stop 10/18/18 at 03:30; Status DC Magnesium Hydroxide (Milk Of Magnesia) 30 ml DAILYPRN PRN PO CONSTIPATION; Start 10/11/18 at 15:15 Potassium Chloride (Micro-K Extencaps) 20 meq DAILY PO Last administered on 10/19/18 12:46; Start 10/19/18 at 09:00; Stop 10/19/18 at 18:20; Status DC Quetiapine Fumarate (SEROquel) 50 mg QHS PRN PO INSOMNIA; Start 10/27/18 at 21:00 Quetiapine Fumarate (SEROquel) 100 mg QHS PO Last administered on 10/26/18 21:26; Start 10/15/18 at 21:00; Stop 10/27/18 at 09:14; Status DC Risperidone (RisperDAL) 1 mg BID PO Last administered on 10/14/18at 08:59; Start 10/12/18 at 21:00; Stop 10/14/18 at 10:28; Status DC Risperidone (RisperDAL) 1 mg QHS PO Last administered on 10/26/18 21:26; Start 10/22/18 at 21:00 Risperidone (RisperDAL) 2 mg BID PO Last administered on 10/17/18at 09:25; S tart 10/14/18 at 21:00; Stop 10/18/18 at 09:57; Status DC Risperidone (RisperDAL) 2 mg QHS PO Last administered on 10/18/18at 21:16; Start 10/18/18 at 21:00; Stop 10/20/18 at 10:14; Status DC Risperidone (RisperDAL) 3 mg BID PO Last administered on 10/11/18 21:03; Start 10/11/18 at 21:00; Stop 10/12/18 at 10:43; Status DC Trazodone HCl (Desyrel) 50 mg QHSP PRN PO INSOMNIA Last administered on 10/17/18 03:08; Start 10/11/18 at 15:15; Stop 10/17/18 at 11:14; Status DC Trazodone HCl (Desyrel) 150 mg QHSP PRN PO INSOMNIA; Start 10/17/18 at 11:15 Allergies Coded Allergies: Sulfa (Sulfonamide Antibiotics) (Verified Allergy, Unknown, 10/08/18) A-FIB/CHADSVASC A-FIB History Current/History of A-Fib/PAF?: No Current Oral Anticoagulant The: No Treatment Treatment ordered: NONE Reason Anticoagulant not given: Not indicated/[id number] JERED RAVI DO October 28, 2018 10:26 am
[2018-10-28 18:00] VITALS: BP 114/78
[2018-10-28] MEDS: risperiDONE 1 MG TAB PO SCH (21:40)
[2018-10-29 06:37] VITALS: BP 119/77
--- NOTE | 2018-10-29 10:15 | MHIPNPDOC ---
[facility] Progress Note Progress Note DATE OF SERVICE: 10/29/18 HISTORY: Patient is a 52 -year-old , female, who was seen on consult from medicine prior admission and per consult note: Per medical admit note: "Pt is a 52 YO F with unknown past medical history and past psychiatric history who was found naked and nonverbal walking [place] [address]. She was saying things that included "Anthony is " and leads found her to be fearful, wide-eyed, and paranoid. She was also agitated and restless. She demonstrated disorientation and confusion as well as difficulty concentrating. She is reportedly from [facility] and it is unknown how she found her way to [place]. She denies any recent drug use. The ED at [facility] was able to find the name of a hospital where she had been previously treated in [place] and found that she has Graves' disease and unknown psychiatric history for which she takes trazodone daily. She had an unremarkable CT head, but slightly elevated ammonia level at 41. Her CPK level was also found to be 638. [facility] gave the patient 1 mg of Ativan and Narcan, but it is unclear whether they gave her lactulose. She was brought to [facility] for further medical management and psychiatry intervention. On exam, she is not answering any questions appropriately." Per psych initial consult note: "Pt seen with sitter present. Sitter in place as pt has attempted to elope multiple times since admitted. Pt pacing room when seen and states she'd like to go. Asked pt to sit while we talked and did for a second then stood up with slightly defensive body language (arms across chest) and shortly after resumed pacing. States she's here due to being naked, "walking" on the side of the road due to unknown reason and denies she thinks there's anything bizarre about that behavior. States she was looking for her car but when asked if she knew where it was unable to answer. Asked her to tell me about herself and didn't give any answers. Asked about her psychiatric history and states she's been diagnosed with anxiety before and has taken trazodone. Asked further about any other diagnosis and states "schizophrenia but that was miss diagnosis" but won't give other diagnosis. Attempted to complete MMSE and pt only oriented to self and that she in a hospital, unable to answer day, month, or year. Asked pt to name objects in room and unable to name TV and will only state "I know what it is."" Per follow-up consult note 10/11/18: "Pt seen with sitter present at first resting then woke up. Continues to appear preoccupied internally with thought blocking, poor memory, improving paranoia. Denies hallucinations. [facility] to [facility]," and continues to state she's from [place] and lives in an [facility] when "Hai" is the metal extrusion supervisor. Still can't remember where her car is. States she's doing well and hopes to go home soon. Took risperdal consta but refused oral risperdal this am. Spoke with SW who is attempting to reach pts family with no luck. Can continue search and d/c planning on [facility] with transfer to unit andd more routine psychiatric care. Denies SI/HI. Pt no longer pacing, resting peacefully, and walking around her unit in am with staff." VITAL SIGNS: See below. NEW TEST RESULTS: order cbc and cmp wnl CURRENT MEDICATIONS: See below. MENTAL STATUS EXAMINATION: General Appearance: disheveled, appears stated age, hospital scrubs/clothing Build: overweight Demeanor: average Eye Contact: good Activity: average, calm Behavior: cooperative Speech: reg in volume, spontaneous Mood: euthymic Mood "ok" Affect: euthymic, congruent, calm Thought Process: concrete, no longer blocked, linear and logical Thought Content (Delusions): denies SI, HI, AVH (appears no longer preoccupied by internal stimuli) Thought Content (Other): none reported Thought Content (Aggressive): none reported Perception (Hallucinations): denies (appears no longer preoccupied by internal stimuli) Perception (Other): none reported Cognition (Impairment of): none reported Cognition(Intelligence Est.): average Oriented: Awake, Alert, oriented x3 Insight: fair Judgment: fair Psychosis: none reported DIAGNOSES: Schizophrenia - chronic, disorganized type hx bipolar d/o (per [facility] outpatient notes) r/o schizoaffective d/o r/o dissociative amnesia episode ASSESSMENT:Pt seen in in office with nurse asking if she can d/c risperidone as she feels she's doing much better after receiving invega sustenna "I'm able to talk more clearly." Told pt that that can be done and maintenance dose invega sustenna due today which she agrees to take then monthly 234mg im outpatient after d/c. Glad to know belongings in car and would like staff to go with her to pick her car up as she is apprehensive about it "I don't want to go someplace I've never been." Will arrange for staff or d/c councilman Aston to go with her. States she feels better, more awake and like herself. Pt is more oriented with logical, linear thoughts. She appears to no longer be responding to internal stimuli and is much less paranoid. She is compliant with her medications. She is future oriented x3 and focused on returning home. She denies depression, SI/HI. Thoughts are linear and logical. She is no longer blocked in thought nor responding internal stimuli. She is socializing on milieu with her peers occasionally. She is no longer paranoid. I will have clothes brought prior to pt going as has none due [place] [address] and got her sizes so that some can be found within donations and what ever not found purchased. Feels invega sustenna is beneficial, tolerating it well, denies side effects to it. Pt less guarded and not irritable. Pt no longer pacing halls. MANAGEMENT PLAN: continue plan and having pt return to home in [place]. Medications: invega sustenna 234mg im 10/19/18 invega sustenna 156mg im today trazodone 50mg qhs prn insomnia seroquel 50mg qhs prn insomnia TIME SPENT: 30 minutes. Vital Signs Vital Signs Date Time Temp Pulse Resp B/P (MAP) Pulse Ox O2 Delivery O2 Flow Rate FiO2 10/29/18 06:37 98.0 81 14 119/77 (91) Current Medications Current Medications Acetaminophen (Tylenol Tab) 650 mg Q6HP PRN PO HEADACHE or DISCOMFORT; Start 10/11/18 at 15:15 Al Hydrox/Mg Hydrox/Simethicone (Mylanta) 30 ml Q4HP PRN PO HEARTBURN/INDIGESTION; Start 10/11/18 at 15:15 Lorazepam (Ativan) 1 mg Q4HP PRN PO ANXIETY; Start 10/17/18 at 03:30; Stop 10/18/18 at 03:30; Status DC Magnesium Hydroxide (Milk Of Magnesia) 30 ml DAILYPRN PRN PO CONSTIPATION; Start 10/11/18 at 15:15 Potassium Chloride (Micro-K Extencaps) 20 meq DAILY PO Last administered on 10/19/18at 12:46; Start 10/19/18 at 09:00; Stop 10/19/18 at 18:20; Status DC Quetiapine Fumarate (SEROquel) 50 mg QHS PRN PO INSOMNIA; Start 10/27/18 at 21:00 Quetiapine Fumarate (SEROquel) 100 mg QHS PO Last administered on 10/26/18 21:26; Start 10/15/18 at 21:00; Stop 10/27/18 at 09:14; Status DC Risperidone (RisperDAL) 1 mg BID PO Last administered on 10/14/18at 08:59; Start 10/12/18 at 21:00; Stop 10/14/18 at 10:28; Status DC Risperidone (RisperDAL) 1 mg QHS PO Last administered on 10/28/18 21:40; Start 10/22/18 at 21:00 Risperidone (RisperDAL) 2 mg BID PO Last administered on 10/17/18at 09:25; Start 10/14/18 at 21:00; Stop 10/18/18 at 09:57; Status DC Risperidone (RisperDAL) 2 mg QHS PO Last administered on 10/18/18at 21:16; Start 10/18/18 at 21:00; Stop 10/20/18 at 10:14; Status DC Risperidone (RisperDAL) 3 mg BID PO Last administered on 10/11/18at 21:03; Start 10/11/18 at 21:00; Stop 10/12/18 at 10:43; Status DC Trazodone HCl (Desyrel) 50 mg QHSP PRN PO INSOMNIA Last administered on at 03:08; Start 10/11/18 at 15:15; Stop 10/17/18 at 11:14; Status DC Trazodone HCl (Desyrel) 150 mg QHSP PRN PO INSOMNIA; Start 10/17/18 at 11:15 Allergies Coded Allergies: Sulfa (Sulfonamide Antibiotics) (Verified Allergy, Unknown, 10/08/18) A-FIB/CHADSVASC A-FIB History Current/History of A-Fib/PAF?: No Current Oral Anticoagulant The: No Treatment Treatment ordered: NONE Reason Anticoagulant not given: Not indicated/[id number] JERED RAVI DO October 29, 2018 9:23 am
[2018-10-29] MEDS ORDERED: PALIPERIDONE PALMITATE 156MG/1ML INJ(INVEGA)(J2426)(FREE PSY INPT ONLY) IM ONE (11:00)
[2018-10-29 18:29] VITALS: BP 111/71
[2018-10-30 06:33] VITALS: BP 131/63
[2018-10-30 18:00] VITALS: BP 110/59
[2018-10-31 06:41] VITALS: BP 129/66
[2018-10-31 18:00] VITALS: BP 107/70
[2018-11-01 06:38] VITALS: BP 114/56
--- NOTE | 2018-11-01 09:32 | MHIPNPDOC ---
[facility] Progress Note Progress Note DATE OF SERVICE: 11/01/18 HISTORY: Patient is a 52 -year-old , female, who was seen on consult from medicine prior admission and per consult note: Per medical admit note: "Pt is a 52 YO F with unknown past medical history and past psychiatric history who was found naked and nonverbal walking [place] [address]. She was saying things that included "Anthony is " and leads found her to be fearful, wide-eyed, and paranoid. She was also agitated and restless. She demonstrated disorientation and confusion as well as difficulty concentrating. She is reportedly from [facility] and it is unknown how she found her way to [place]. She denies any recent drug use. The ED at [facility] was able to find the name of a hospital where she had been previously treated in [place] and found that she has Graves' disease and unknown psychiatric history for which she takes trazodone daily. She had an unremarkable CT head, but slightly elevated ammonia level at 41. Her CPK level was also found to be 638. [facility] gave the patient 1 mg of Ativan and Narcan, but it is unclear whether they gave her lactulose. She was brought to [facility] for further medical management and psychiatry intervention. On exam, she is not answering any questions appropriately." Per psych initial consult note: "Pt seen with sitter present. Sitter in place as pt has attempted to elope multiple times since admitted. Pt pacing room when seen and states she'd like to go. Asked pt to sit while we talked and did for a second then stood up with slightly defensive body language (arms across chest) and shortly after resumed pacing. States she's here due to being naked, "walking" on the side of the road due to unknown reason and denies she thinks there's anything bizarre about that behavior. States she was looking for her car but when asked if she knew where it was unable to answer. Asked her to tell me about herself and didn't give any answers. Asked about her psychiatric history and states she's been diagnosed with anxiety before and has taken trazodone. Asked further about any other diagnosis and states "schizophrenia but that was miss diagnosis" but won't give other diagnosis. Attempted to complete MMSE and pt only oriented to self and that she in a hospital, unable to answer day, month, or year. Asked pt to name objects in room and unable to name TV and will only state "I know what it is."" Per follow-up consult note 10/11/18: "Pt seen with sitter present at first resting then woke up. Continues to appear preoccupied internally with thought blocking, poor memory, improving paranoia. Denies hallucinations. Able to remember [facility]," and continues to state she's from [place] and lives in an appt [facility] when "Hai" is the compensation supervisor. Still can't remember where her car is. States she's doing well and hopes to go home soon. Took risperdal consta but refused oral risperdal this am. Spoke with SW who is attempting to reach pts family with no luck. Can continue search and d/c planning on [facility] with transfer to unit andd more routine psychiatric care. Denies SI/HI. Pt no longer pacing, resting peacefully, and walking around her unit in am with staff." VITAL SIGNS: See below. NEW TEST RESULTS: order cbc and cmp wnl CURRENT MEDICATIONS: See below. MENTAL STATUS EXAMINATION: General Appearance: disheveled, appears stated age, hospital scrubs/clothing Build: overweight Demeanor: average Eye Contact: good Activity: average, calm Behavior: cooperative Speech: reg in volume, spontaneous Mood: euthymic Mood "ok" Affect: euthymic, congruent, calm Thought Process: concrete, no longer blocked, linear and logical Thought Content (Delusions): denies SI, HI, AVH (appears no longer preoccupied by internal stimuli) Thought Content (Other): none reported Thought Content (Aggressive): none reported Perception (Hallucinations): denies (appears no longer preoccupied by internal stimuli) Perception (Other): none reported Cognition (Impairment of): none reported Cognition(Intelligence Est.): average Oriented: Awake, Alert, oriented x3 Insight: fair Judgment: fair Psychosis: none reported DIAGNOSES: Schizophrenia - chronic, disorganized type hx bipolar d/o (per [facility]) r/o schizoaffective d/o r/o dissociative amnesia episode ASSESSMENT:Pt seen in in office and states she's doing well. She appears bright and social in the milieu. Glad to know belongings in car and will see if staff can go with her to pick her car up as she is apprehensive about it. States she feels better, more awake and like herself. Pt is more oriented with logical, linear thoughts. She appears to no longer be responding to internal stimuli and is much less paranoid. She is compliant with her medications. Tolerated second dose of invega sustenna on Thursday and is appears beneficial. She is future oriented x3 and focused on returning home. She denies depression, SI/HI. Thoughts are linear and logical. She is no longer blocked in thought nor responding internal stimuli. She is socializing on milieu with her peers occasionally. She is no longer paranoid. I have clothes for her to wear upon d/c home this week which she appreciates. Feels invega sustenna is beneficial, tolerating it well, denies side effects to it. Pt no longer guarded and not irritable. Pt no longer pacing halls. MANAGEMENT PLAN: continue plan and having pt return to home in [place]. Medications: invega sustenna 234mg im 10/19/18 invega sustenna 156mg im 10/29/18 trazodone 50mg qhs prn insomnia seroquel 50mg qhs prn insomnia TIME SPENT: 30 minutes. Vital Signs Vital Signs Date Time Temp Pulse Resp B/P (MAP) Pulse Ox O2 Delivery O2 Flow Rate FiO2 11/01/18 06:38 98.6 80 12 114/56 (75) Current Medications Current Medications Acetaminophen (Tylenol Tab) 650 mg Q6HP PRN PO HEADACHE or DISCOMFORT; Start 10/11/18 at 15:15 Al Hydrox/Mg Hydrox/Simethicone (Mylanta) 30 ml Q4HP PRN PO HEARTBURN/INDIGESTION; Start 10/11/18 at 15:15 Lorazepam (Ativan) 1 mg Q4HP PRN PO ANXIETY; Start 10/17/18 at 03:30; Stop 10/18/18 at 03:30; Status DC Magnesium Hydroxide (Milk Of Magnesia) 30 ml DAILYPRN PRN PO CONSTIPATION; Start 10/11/18 at 15:15 Potassium Chloride (Micro-K Extencaps) 20 meq DAILY PO Last administered on 10/19/18at 12:46; Start 10/19/18 at 09:00; Stop 10/19/18 at 18:20; Status DC Quetiapine Fumarate (SEROquel) 50 mg QHS PRN PO INSOMNIA; Start 10/27/18 at 21:00 Quetiapine Fumarate (SEROquel) 100 mg QHS PO Last administered on 10/26/18 21:26; Start 10/15/18 at 21:00; Stop 10/27/18 at 09:14; Status DC Risperidone (RisperDAL) 1 mg BID PO Last administered on 10/14/18at 08:59; Start 10/12/18 at 21:00; Stop 10/14/18 at 10:28; Status DC Risperidone (RisperDAL) 1 mg QHS PO Last administered on 10/28/18 21:40; Start 10/22/18 at 21:00; Stop 10/29/18 at 10:04; Status DC Risperidone (RisperDAL) 2 mg BID PO Last administered on 10/17/18at 09:25; Start 10/14/18 at 21:00; Stop 10/18/18 at 09:57; Status DC Risperidone (RisperDAL) 2 mg QHS PO Last administered on 10/18/18at 21:16; Start 10/18/18 at 21:00; Stop 10/20/18 at 10:14; Status DC Risperidone (RisperDAL) 3 mg BID PO Last administered on 10/11/18at 21:03; Start 10/11/18 at 21:00; Stop 10/12/18 at 10:43; Status DC Trazodone HCl (Desyrel) 50 mg QHSP PRN PO INSOMNIA Last administered on 10/17/18at 03:08; Start 10/11/18 at 15:15; Stop 10/17/18 at 11:14; Status DC Trazodone HCl (Desyrel) 150 mg QHSP PRN PO INSOMNIA; Start 10/17/18 at 11:15 Allergies Coded Allergies: Sulfa (Sulfonamide Antibiotics) (Verified Allergy, Unknown, 10/08/18) A-FIB/CHADSVASC A-FIB History Current/History of A-Fib/PAF?: No Treatment Treatment ordered: NONE Reason Anticoagulant not given: Not indicated/[id number] JERED RAVI DO November 01, 2018 9:32 am
[2018-11-01 18:21] VITALS: BP 128/68
[2018-11-02 06:39] VITALS: BP 116/57
--- NOTE | 2018-11-02 09:42 | MHIPNPDOC ---
[facility] Progress Note Progress Note DATE OF SERVICE: 11/02/18 HISTORY: Patient is a 52 -year-old , female, who was seen on consult from medicine prior admission and per consult note: Per medical admit note: "Pt is a 52 YO F with unknown past medical history and past psychiatric history who was found naked and nonverbal walking [place] [address]. She was saying things that included "Anthony is " and leads found her to be fearful, wide-eyed, and paranoid. She was also agitated and restless. She demonstrated disorientation and confusion as well as difficulty concentrating. She is reportedly from [facility] and it is unknown how she found her way to [place]. She denies any recent drug use. The ED at [facility] was able to find the name of a hospital where she had been previously treated in [place] and found that she has Graves' disease and unknown psychiatric history for which she takes trazodone daily. She had an unremarkable CT head, but slightly elevated ammonia level at 41. Her CPK level was also found to be 638. [facility] gave the patient 1 mg of Ativan and Narcan, but it is unclear whether they gave her lactulose. She was brought to [facility] for further medical management and psychiatry intervention. On exam, she is not answering any questions appropriately." Per psych initial consult note: "Pt seen with sitter present. Sitter in place as pt has attempted to elope multiple times since admitted. Pt pacing room when seen and states she'd like to go. Asked pt to sit while we talked and did for a second then stood up with slightly defensive body language (arms across chest) and shortly after resumed pacing. States she's here due to being naked, "walking" on the side of the road due to unknown reason and denies she thinks there's anything bizarre about that behavior. States she was looking for her car but when asked if she knew where it was unable to answer. Asked her to tell me about herself and didn't give any answers. Asked about her psychiatric history and states she's been diagnosed with anxiety before and has taken trazodone. Asked further about any other diagnosis and states "schizophrenia but that was miss diagnosis" but won't give other diagnosis. Attempted to complete MMSE and pt only oriented to self and that she in a hospital, unable to answer day, month, or year. Asked pt to name objects in room and unable to name TV and will only state "I know what it is."" Per follow-up consult note 10/11/18: "Pt seen with sitter present at first resting then woke up. Continues to appear preoccupied internally with thought blocking, poor memory, improving paranoia. Denies hallucinations. Able to remember [facility]," and continues to state she's from [place] and lives in an appt [facility] when "Hai" is the cryptologic supervisor. Still can't remember where her car is. States she's doing well and hopes to go home soon. Took risperdal consta but refused oral risperdal this am. Spoke with SW who is attempting to reach pts family with no luck. Can continue search and d/c planning on [facility] with transfer to unit andd more routine psychiatric care. Denies SI/HI. Pt no longer pacing, resting peacefully, and walking around her unit in am with staff." VITAL SIGNS: See below. NEW TEST RESULTS: order cbc and cmp wnl CURRENT MEDICATIONS: See below. MENTAL STATUS EXAMINATION: General Appearance: disheveled, appears stated age, hospital scrubs/clothing Build: overweight Demeanor: average Eye Contact: good Activity: average, calm Behavior: cooperative Speech: reg in volume, spontaneous Mood: euthymic Mood "ok" Affect: euthymic, congruent, calm Thought Process: concrete, no longer blocked, linear and logical Thought Content (Delusions): denies SI, HI, AVH (appears no longer preoccupied by internal stimuli) Thought Content (Other): none reported Thought Content (Aggressive): none reported Perception (Hallucinations): denies (appears no longer preoccupied by internal stimuli) Perception (Other): none reported Cognition (Impairment of): none reported Cognition(Intelligence Est.): average Oriented: Awake, Alert, oriented x3 Insight: fair Judgment: fair Psychosis: none reported DIAGNOSES: Schizophrenia - chronic, disorganized type hx bipolar d/o (per [facility] outpatient notes) r/o schizoaffective d/o r/o dissociative amnesia episode ASSESSMENT:Pt seen in in office and states she's doing well. Gave her clothing donated by my mother that she was excited to get and state fit and she likes after trying them on. She appears bright and social in the milieu. Glad to know belongings in car and will see if staff can go with her to pick her car up as she is apprehensive about it. States she feels better, more awake and like herself. Pt is more oriented with logical, linear thoughts. She appears to no longer be responding to internal stimuli and is much less paranoid. She is compliant with her medications. Tolerating her medications well and appears beneficial. She is future oriented x3 and focused on returning home. She denies depression, SI/HI. Thoughts are linear and logical. She is no longer blocked in thought nor responding internal stimuli. She is socializing on milieu with her peers occasionally. She is no longer paranoid. Feels invega sustenna is beneficial, tolerating it well, denies side effects to it. Pt no longer guarded and not irritable. Pt no longer pacing halls. She appears at her baseline status. MANAGEMENT PLAN: continue plan and having pt return to home in [place]. Medications: invega sustenna 234mg im 10/19/18 invega sustenna 156mg im 10/29/18 trazodone 50mg qhs prn insomnia seroquel 50mg qhs prn insomnia TIME SPENT: 30 minutes. Vital Signs Vital Signs Date Time Temp Pulse Resp B/P (MAP) Pulse Ox O2 Delivery O2 Flow Rate FiO2 11/02/18 06:39 97.6 68 14 116/57 (76) Current Medications Current Medications Acetaminophen (Tylenol Tab) 650 mg Q6HP PRN PO HEADACHE or DISCOMFORT; Start 10/11/18 at 15:15 Al Hydrox/Mg Hydrox/Simethicone (Mylanta) 30 ml Q4HP PRN PO HEARTBURN/INDIGESTION; Start 10/11/18 at 15:15 Lorazepam (Ativan) 1 mg Q4HP PRN PO ANXIETY; Start 10/17/18 at 03:30; Stop 10/18/18 at 03:30; Status DC Magnesium Hydroxide (Milk Of Magnesia) 30 ml DAILYPRN PRN PO CONSTIPATION; Start 10/11/18 at 15:15 Potassium Chloride (Micro-K Extencaps) 20 meq DAILY PO Last administered on 10/19/18at 12:46; Start 10/19/18 at 09:00; Stop 10/19/18 at 18:20; Status DC Quetiapine Fumarate (SEROquel) 50 mg QHS PRN PO INSOMNIA; Start 10/27/18 at 21:00 Quetiapine Fumarate (SEROquel) 100 mg QHS PO Last administered on 10/26/18 21:26; Start 10/15/18 at 21:00; Stop 10/27/18 at 09:14; Status DC Risperidone (RisperDAL) 1 mg BID PO Last administered on 10/14/18at 08:59; Start 10/12/18 at 21:00; Stop 10/14/18 at 10:28; Status DC Risperidone (RisperDAL) 1 mg QHS PO Last administered on 10/28/18 21:40; Start 10/22/18 at 21:00; Stop 10/29/18 at 10:04; Status DC Risperidone (RisperDAL) 2 mg BID PO Last administered on 10/17/18at 09:25; Start 10/14/18 at 21:00; Stop 10/18/18 at 09:57; Status DC Risperidone (RisperDAL) 2 mg QHS PO Last administered on 10/18/18at 21:16; Start 10/18/18 at 21:00; Stop 10/20/18 at 10:14; Status DC Risperidone (RisperDAL) 3 mg BID PO Last administered on 10/11/18at 21:03; Start 10/11/18 at 21:00; Stop 10/12/18 at 10:43; Status DC Trazodone HCl (Desyrel) 50 mg QHSP PRN PO INSOMNIA Last administered on 10/17/18at 03:08; Start 10/11/18 at 15:15; Stop 10/17/18 at 11:14; Status DC Trazodone HCl (Desyrel) 150 mg QHSP PRN PO INSOMNIA; Start 10/17/18 at 11:15 Allergies Coded Allergies: Sulfa (Sulfonamide Antibiotics) (Verified Allergy, Unknown, 10/08/18) A-FIB/CHADSVASC A-FIB History Current/History of A-Fib/PAF?: No Current Oral Anticoagulant The: No Treatment Treatment ordered: NONE Reason Anticoagulant not given: Not indicated/[id number] JERED RAVI DO November 02, 2018 9:42 am
[2018-11-02 18:00] VITALS: BP 128/89
--- NOTE | 2018-11-03 09:09 | MHDSPDOC ---
[facility] Discharge Summary DATE OF ADMISSION: Oct 11, 2018 at 3:27 pm DATE OF DISCHARGE: November 03, 2018 DISCHARGE DIAGNOSES: Schizophrenia - chronic, disorganized type hx bipolar d/o (per [facility] notes) r/o schizoaffective d/o r/o dissociative amnesia episode REASON FOR ADMISSION: Patient is a 52 -year-old , female, who was seen on consult from medicine prior admission and per consult note: Per medical admit note: "Pt is a 52 YO F with unknown past medical history and past psychiatric history who was found naked and nonverbal walking [place] [address]. She was saying things that included "Anthony is " and leads found her to be fearful, wide-eyed, and paranoid. She was also agitated and restless. She demonstrated disorientation and confusion as well as difficulty concentrating. She is reportedly from [facility] and it is unknown how she found her way to [place]. She denies any recent drug use. The ED at [facility] was ab le to find the name of a hospital where she had been previously treated in [place] and found that she has Graves' disease and unknown psychiatric history for which she takes trazodone daily. She had an unremarkable CT head, but slightly elevated ammonia level at 41. Her CPK level was also found to be 638. [facility] gave the patient 1 mg of Ativan and Narcan, but it is unc lear whether they gave her lactulose. She was brought to [facility] for further medical management and psychiatry intervention. On exam, she is not answering any questions appropriately." Per psych initial consult note: "Pt seen with sitter present. Sitter in place as pt has attempted to elope multiple times since admitted. Pt pacing room when seen and states she'd like to go. Asked pt to sit while we talked and did for a second then stood up with slightly defensive body language (arms across chest) and shortly after resumed pacing. States she's here due to being naked, "walking" on the side of the road due to unknown reason and denies she thinks there's anything bizarre about that behavior. States she was looking for her car but when asked if she knew where it was unable to answer. Asked her to tell me about herself and didn't give any answers. Asked about her psychiatric history and states she's been diagnosed with anxiety before and has taken trazodone. Asked further about any other diagnosis and states "schizophrenia but that was miss diagnosis" but won't give other diagnosis. Attempted to complete MMSE and pt only oriented to self and that she in a hospital, unable to answer day, month, or year. Asked pt to name objects in room and unable to name TV and will only state "I know what it is."" Per follow-up consult note 10/11/18: "Pt seen with vicenta present at first r esting then woke up. Continues to appear preoccupied internally with thought blocking, poor memory, improving paranoia. Denies hallucinations. Able to remember "[facility]," and continues to state she's from [place] and [facility] in [facility] when "Hai" is the cost control supervisor. Still can't remember where her car is. States she's doing well and hopes to go home s oon. Took risperdal consta but refused oral risperdal this am. Spoke with SW who is attempting to reach pts family with no luck. Can continue search and d/c planning on [facility] with transfer to unit andd more routine psychiatric care. Denies SI/HI. Pt no longer pacing, resting peacefully, and walking around her unit in am with staff." CONSULTANTS INVOLVED: medicine TREATMENT AND PROGRESS ON THE UNIT : Pt was admitted to [facility], seen for psychiatric assessment and started on risperidone 2mg bid for psychosis. Risperidone was increased and decreased during course pt taking it due to symptoms and side effects. It was eventually discontinued due to oversedation and she was given invega 3mg oral xq that she tolerated well followed by invega sustenna 234mg im then later invega sustenna 156mg im. She tolerated both very well and her symptoms of psychosis and disorganization improved greatly to resolving to what appeared to be her baseline function. She was also started on seroquel 50mg qhs that was eventually discontinued due to morning oversedation. She was provided trazodone 50mg qhs prn insomnia. Pt found her medications be neficial and tolerated them well. She did not attended groups daily during her stay but was social in the milieu toward the end of her admission. Her thoughts were logical, linear, goal directed, and she denies hallucinations, delusions. She no longer appeared psychotic prior d/c but stable and at her probably baseline function. She was pleasant and cooperative leading up to her discharge. She was eating and sleeping well. Her symptoms improved with treatment greatly. On day of discharge she denied depression, anxiety, insomnia, SI/HI, hallucinations, delusions. She was discharged home with first going to [facility] to merchandise pickup/receiving associate car at home and then returning home to [place] with follow-up at [facility] clinic. The [facility] manager switch Hai was contacted several times during her stay by the d/c cyber policy and strategy planner to provide collateral and aid pt's return home. Pt's mother was contact to aid pt with money to pay for her car to get it out of the pound. She was provided clothing prior d/c. She felt safe for discharge. DISCHARGE ASSESSMENT: Pt seen in in office and states she's doing well and is very much looking forward to going home. States she's all set to merchandise pickup/receiving associate her car and drive home to [place]. She appears bright and social in the milieu. Glad to know belongings are in her car. States she feels better, more awake and like herself. Pt is more oriented with logical, linear thoughts. She is no longer responding to internal stimuli or paranoid. She is compliant with her medications. Tolerating her medications well and appears beneficial. She is future oriented x3 and focused on returning home. She denies depression, SI/HI. She is no longer blocked in thought. She is socializing on milieu with her peers. Feels invega sustenna is beneficial, tolerating it well, denies side effects to it. Pt no longer guarded or irritable. Pt no longer pacing halls. She appears at her baseline status. She denies depression, anxiety, insomnia, SI/HI, hallucinations, delusions. Feels safe to return home. MENTAL STATUS EXAMINATION ON DISCHARGE: General Appearance: clean, appears stated age, hospital scrubs/clothing Build: overweight Demeanor: average Eye Contact: good Activity: average, calm Behavior: cooperative Speech: reg in volume, spontaneous Mood: euthymic, full, bright Mood "good" Affect: euthymic, congruent, calm Thought Process: linear and logical, future oriented to returning home Thought Content (Delusions): denies SI, HI, AVH (appears no longer preoccupied by internal stimuli) Thought Content (Other): none reported Thought Content (Aggressive): none reported Perception (Hallucinations): denies (appears no longer preoccupied by internal stimuli) Perception (Other): none reported Cognition (Impairment of): none reported Cognition(Intelligence Est.): average Oriented: Awake, Alert, oriented x3 Insight: good Judgment: good Psychosis: none reported MEDICATIONS ON DISCHARGE: invega sustenna 234mg im qmonthly (next dose 11/18/18) trazodone 50mg qhs prn insomnia PLAN/FOLLOWUP ARRANGEMENTS: D/c home with first going to [facility] to merchandise pickup/receiving associate car at home and then returning home to [place] with follow-up at [facility] outpatient clinic. The amount of time spent in the coordination of care for this patient was appro ximately 30 minutes. Vital Signs/I&Os Vital Signs Date Time Temp Pulse Resp B/P (MAP) Pulse Ox O2 Delivery O2 Flow Rate FiO2 11/02/18 18:00 98.9 79 16 128/89 (102) Medications Scheduled Risperidone (Risperdal) 2 Mg Tablet, 2 MG PO BID for 30 Days, #60 Scheduled PRN Olanzapine (Olanzapine Odt) 5 Mg Tab.rapdis, 5 MG PO Q4HP PRN for ANXIETY/AGITATION for 30 Days, #30 Trazodone HCl (Trazodone HCl) 150 Mg Tablet, 150 MG PO QHS PRN for SLEEP, (Reported) LAST FILLED 09/23/18 Allergies Coded Allergies: Sulfa (Sulfonamide Antibiotics) (Verified Allergy, Unknown, 10/08/18) JERED RAVI DO November 03, 2018 9:09 am
== END 2018-11-03 10:40 | disposition home or self-care (01) | DRG 750 ==
LOC: M PSY 15:27
PROVIDERS: ADMIT Psychiatry & Neurology Psychiatry; ATTEND Psychiatry & Neurology Psychiatry
DX: F20.1 Disorganized schizophrenia (principal); F31.9 Bipolar disorder, unspecified; F44.0 Dissociative amnesia; Z79.899 Other long term (current) drug therapy